=== PATIENT | female | born 1960 | race Caucasian/White ===

== ENCOUNTER 2017-06-04 21:23 | Inpatient (IN) | payer MEDICARE, BC ==
[~2017-06-04] VITALS: Ht 165.1 cm; Wt 57.2 kg
[~2017-06-04 21:23] MED LIST: ACET-868 PO; BISA10SU61 RC; CARI350T PO; CLON1TAB PO; CLON2TAB PO; DEXT1DRO3 RIGHTEYE; ERGO500014 PO; LEVE1000 PO; LEVO750T21 PO; MAGN400O6 PO; MINE7OIN RIGHTEYE; NA P133E RC; NICO-676 TD; OXYC5CAP PO; POLY17PO3 PO; PREG300C PO; SENN8.6C5 PO; SIMV20TA2 PO
--- NOTE | 2017-06-04 21:30 | NUR ---
56 yo male valeria ra from [facility]. patient is alert x 1, telling me his name only, not answering any other questions. per ems, patient is normally a/o x3, patient did not come down for dinner tonight, residence called 911. patient BG was WNl, skin warm and dry, resp even an dunlabored. awaiting orders from provider, will continue to monitor
[2017-06-04] MEDS ORDERED: HALOPERIDOL LACTATE INJ 5 MG/ML VIAL ONE (21:34)
[2017-06-04] MEDS ORDERED: LORAZEPAM INJ 2 MG/ML VIAL ONE (21:35)
--- NOTE | 2017-06-04 21:40 | NUR ---
medicated tpt as ordered
[2017-06-04] MEDS ORDERED: HALOPERIDOL LACTATE INJ 5 MG/ML VIAL IM ONE (22:00)
[2017-06-04] MEDS ORDERED: LORAZEPAM INJ 2 MG/ML VIAL IM ONE (22:00)
[2017-06-04 22:35] LABS: APPEARANCE,URINE CLEAR (CLEAR); BILIRUBIN,URINE NEGATIVE (NEGATIVE); BLOOD, URINE TRACE-INTA Ery/uL (NEGATIVE); COLOR,URINE YELLOW (YELLOW); KETONES,URINE 1+ (NEGATIVE); LEUKOCYTE ESTERASE ,URINE NEGATIVE (NEGATIVE); NITRITE, URINE NEGATIVE (NEGATIVE); PH,URINE 8.5 (5.0-8.0); PROTEIN,URINE NEGATIVE (NEGATIVE); UGLUCOSE NEGATIVE (NEGATIVE); UROBILINOGEN,URINE 0.2 EU/dL (0.2)
--- NOTE | 2017-06-04 22:38 | NUR ---
22G RIGHT WRIST IV STARTED
--- NOTE | 2017-06-04 22:40 | NUR ---
CALLED NURSING SUP. FOR TELE BED
[2017-06-04 22:46] LABS: BACTERIA,URINE Few /HPF (None Seen); SQUAMOUS EPITHELIAL CELL,UR Few /HPF (None Seen); WBC,URINE 0-2 /HPF (0-3)
[2017-06-04 23:08] LABS: CARBON DIOXIDE 21 mmol/L (21-32); CHLORIDE 107 mmol/L (98-107); CREATININE 0.5 mg/dL (0.6-1.3); GLUCOSE 111 mg/dL (74-106); SODIUM SERUM 140 mmol/L (136-145); UREA NITROGEN, BLOOD 12 mg/dL (7-18)
[2017-06-04 23:11] LABS: INR 1.03 (0.87-1.13)
[2017-06-04 23:15] LABS: ALANINE AMINOTRANSFERASE 20 U/L (12-78); ALBUMIN 3.4 g/dL (3.4-5.0); ALKALINE PHOSPHATASE 84 U/L (46-116); ASPARTATE AMINOTRANSFERASE 24 U/L (15-37); BILIRUBIN,DIRECT 0.1 mg/dL (0.0-0.2); BILIRUBIN,TOTAL 0.5 mg/dL (0.2-1.0); SALICYLATE 4.6 mg/dL (2.8-20.0); TOTAL PROTEIN, SERUM 6.5 g/dL (6.4-8.2)
--- NOTE | 2017-06-04 23:16 | NUR ---
TELE 311-2
[2017-06-04 23:18] LABS: ACETAMINOPHEN 0 ug/ml (10-30); ALCOHOL, BLOOD < 3 mg/dL (0-0)
[2017-06-04 23:24] LABS: BASOPHILS % (AUTO) 0.1 % (0.0-2.0); HEMATOCRIT 37 % (33-45); HEMOGLOBIN 12.7 g/dL (11.5-14.8); LYMPHOCYTES # (AUTO) 1.4 /CMM (0.8-4.8); LYMPHOCYTES % (AUTO) 11.5 % (20.0-44.0); MEAN CORPUSCULAR HEMOGLOBIN 30 PG (26.0-33.0); MEAN CORPUSCULAR HGB CONC 34 g/dl (31.0-36.0); MEAN CORPUSCULAR VOLUME 88 fL (82-100); MONOCYTES # (AUTO) 0.3 /CMM (0.1-1.30); MONOCYTES % (AUTO) 2.5 % (2.0-12.0); NEUTROPHILS # (AUTO) 10.1 /CMM (1.8-8.9); NEUTROPHILS % (AUTO) 85.9 % (43.0-81.0); PLATELET COUNT (AUTO) 200 /CMM (150-450); RDW COEFFICIENT OF VARIATION 13.9 (11.5-15.0); RED BLOOD CELL COUNT(AUTO) 4.25 MIL/uL (4.0-5.2); WHITE BLOOD COUNT (AUTO) 11.8 K/uL (4.3-11.0)
[2017-06-04 23:33] LABS: TROPONIN I < 0.017 ng/mL (0.00-0.056)
[2017-06-05] VITALS (7 sets, daily range): BP systolic 114–131; BP diastolic 71–87
[2017-06-05] MEDS ORDERED: LEVOFLOXACIN 750 MG /D5W 150ML PIGGYBACK IV ONE (00:30)
[2017-06-05] MEDS ORDERED: AZTREONAM 1 G in IV NS 0.9% 100 ML IV ONE (00:30)
[2017-06-05] MEDS ORDERED: LEVOFLOXACIN 750 MG /D5W 150ML 150 ML IV ONE (00:32)
[2017-06-05] MEDS ORDERED: AZTREONAM 1 G VIAL ONE (00:32)
--- NOTE | 2017-06-05 00:43 | NUR ---
DR MONROE ON THE PHONE WITH DR [place] EDITOR PANEL REGARDING PATIENT ADMISSION
--- NOTE | 2017-06-05 00:54 | NUR ---
JULIA SANDERS TOOK REPORT FOR TARYN
--- NOTE | 2017-06-05 01:04 | NUR ---
TELE/RN NOTES RECEIVED PATIENT IN ER ARRIVED ON A GURNEY, ALERTX1, PROVIDED WARM BLANKET PATIENT STATED FEEL COLD, SKIN COOL TO TOUCH, INTACT AND DRY, RESPIRATIONS EVEN AND UNLABORED, NO PAIN VERBALIZED, TELE READING AT SR 60'S. IV RIGHT WRIST GAUGE 22, PATENT W/ NO S/S OF INFILTRATION, RECEIVED ENDORSEMENT FOR IV ATB LEVOFLOXACIN ORDER 750MG/150ML TO ADMINISTRE, IV ANTIBIOTIC ZOSYN , 4 BAGS OF POTASSIUM TO REPLACE., IV HYDRATION RUNNING, MONITORING PATIENT W/ DX PHYLLIS. MD CONTACTED AND RECONCILED ORDERS, WILL CONTINUE TO MONITOR.
--- NOTE | 2017-06-05 01:05 | NUR ---
RECEIVED REPORT FROM HYDROPULPERMINESH ,PATIENT ROOM AT 309-2
--- NOTE | 2017-06-05 01:15 | NUR ---
TRANSPORTED PT TO TELE BED WITH EMT WITHOUT INCIDENT
--- NOTE | 2017-06-05 01:17 | NUR ---
ENDORSED LEVaquin 750mg iv to tele nurse
[2017-06-05] MEDS ORDERED: ZOLPIDEM TARTRATE 5 MG TABLET PO PRN (01:30)
[2017-06-05] MEDS ORDERED: HYDROCODONE/APAP 5/325MG 1 EACH TABLET PO PRN (01:30)
[2017-06-05] MEDS ORDERED: ONDANSETRON HCL/PF 4 MG/2 ML VIAL IVP PRN (01:30)
[2017-06-05] MEDS ORDERED: MAGNESIUM HYDROXIDE 30 ML UDC PO PRN (01:30)
[2017-06-05] MEDS ORDERED: Z GUARD REMEDY 2 OZ OINT TP PRN (01:30)
[2017-06-05] MEDS ORDERED: MAG HYDROX/AL HYDROX/SIMETH 30 ML UDC PO PRN (01:30)
[2017-06-05] MEDS ORDERED: ALBUTEROL FS 2.5 MG/3 ML VIAL.NEB NEB PRN (02:00)
[2017-06-05] MEDS ORDERED: PIPERACILLIN /TAZOBACTAM 4.5 G in IV D5W 50 ML IV SCH (02:00)
[2017-06-05] MEDS ORDERED: LORAZEPAM INJ 2 MG/ML VIAL IV PRN ×2 (02:00→14:00)
[2017-06-05] MEDS: IV NS 0.9% 1,000 ML IV PRN (02:02)
[2017-06-05] MEDS ORDERED: POTASSIUM CL. PREMIX PERIPHER. 200 ML ONE (02:27)
[2017-06-05] MEDS: POTASSIUM CL. PREMIX PERIPHER. 50 ML IV SCH ×4 (03:40→06:49)
--- NOTE | 2017-06-05 06:45 | NUR ---
09-2 pATIENT ABLE TO SLEEP DURING THE NIGHT, RESTING COMFORTBALY WITH SOME TURNING, ALERT X 1, SKIN INTACT, ABLE TO COOPERTAE WITH IV INFUSION FOR IV ATN FOR PNS, POTASSIUM TO BE REPLACED, RECEIVE ENDORSEMENT FROM AM RN FOR TARYN.
--- NOTE | 2017-06-05 07:45 | NUR ---
TELE/RN OPENING NOTE PATIENT IN BED IN STABLE CONDITION. A/O X 1. NO SIGNS OF ACUTE DISTRESS. NO COMPLAIN OF PAIN OR DISCOMFORT. ON TELE MONITOR WITH SINUS RHYTHM IN 90'S. ALL NEEDS ATTENDED TO. CALL LIGHT WITHIN REACH. WILL CONTINUE TO MONITOR TO ENSURE SAFETY.
[2017-06-05] MEDS: LEVETIRACETAM (250 MG) 250 MG TABLET PO SCH ×2 (08:24→21:21)
[2017-06-05 09:34] LABS: TROPONIN I < 0.017 ng/mL (0.00-0.056)
[2017-06-05] MEDS ORDERED: HALOPERIDOL LACTATE INJ 5 MG/ML VIAL IM PRN (10:00)
[2017-06-05] MEDS: LORAZEPAM INJ 2 MG/ML VIAL IM PRN ×2 (10:27→14:36)
[2017-06-05] MEDS ORDERED: LORAZEPAM 0.5 MG TABLET PO PRN (12:30)
[2017-06-05] MEDS ORDERED: TEMAZEPAM 7.5 MG CAPSULE PO PRN (12:30)
[2017-06-05] MEDS ORDERED: PANT40TA4 PO (13:25)
[2017-06-05] MEDS ORDERED: OXYC30TA2 PO (13:25)
[2017-06-05] MEDS ORDERED: LAMO25TA5 PO (13:25)
[2017-06-05] MEDS ORDERED: CHOL200026 PO (13:25)
[2017-06-05] MEDS ORDERED: PROC10TA PO (13:25)
[2017-06-05] MEDS ORDERED: MORP60TA4 PO (13:25)
[2017-06-05] MEDS ORDERED: ZOLP10TA6 PO (13:25)
[2017-06-05] MEDS ORDERED: MELO-107 PO (13:25)
[2017-06-05] MEDS ORDERED: CRAN450T3 PO (13:25)
[2017-06-05] MEDS ORDERED: LIDO30AD10 TP (13:25)
[2017-06-05] MEDS ORDERED: METH-406 PO (13:25)
[2017-06-05] MEDS ORDERED: GABA-532 PO (13:25)
[2017-06-05] MEDS ORDERED: ATOR10TA PO (13:25)
[2017-06-05] MEDS ORDERED: LACT10SO PO (13:25)
[2017-06-05] MEDS ORDERED: TEMA30CA PO (13:25)
[2017-06-05] MEDS: PIPERACILLIN /TAZOBACTAM 3.375 G in IV D5W 50 ML IV SCH ×3 (13:30→23:13)
--- NOTE | 2017-06-05 15:46 | NUR ---
ICT SECURITY SPECIALIST NOTES RECEIVED PATIENT FROM TOMMY GORMAN, IN BED RESTING. NO ACUTE DISTRESS, NO SOB NOTED. NO S/S OF PAIN OR DISCOMFORT. IV SITE INTACT AND PATENT. KEPT SAFE AND COMFORTABLE IN BED. BED IN LOW LOCKED POSITION. SIDERAILS UP, CALL LIGHT IN REACH. WILL CONTINUE TO MONITOR ACCORDINGLY.
[2017-06-05] MEDS: BENZTROPINE MESYLATE (1 MG) 1 MG TABLET PO SCH (17:00)
[2017-06-05] MEDS: risperiDONE-M 0.5 MG TAB.RAPDIS PO SCH (17:00)
--- NOTE | 2017-06-05 19:29 | NUR ---
RN CLOSING NOTES PATIENT IN BED RESTING. NO ACUTE DISTRESS, NO SOB NOTED. ALL NEEDS ATTENDED AND PROVIDED. KEPT PATIENT SAFE AND COMFORTABLE IN BED. BED IN LOW/LOCKED POSITION, SIDERAILS UPX2, CALL LIGHT IN REACH, ENDORSED TO NIGHT RN FOR TARYN.
--- NOTE | 2017-06-05 19:40 | NUR ---
RN OPENING NOTES RECEIVED PT LAYING IN BED WITH HOB ELEVATED. AWAKE AND RESPONSIVE. RESPIRATIONS ARE EVEN AND UNLABORED, NOT IN ANY ACUTE DISTRESS NOTED. NO FACIAL GRIMACING OR MOANING NOTED. IV TO RIGHT WRIST PATENT AND INTACT, DRESSING KEPT CLEAN AND DRY. NS RUNNING AT 75ML/HR. NO N/V, SOB NOTED. REMAINS AFEBRILE. WILL CONTINUE TO MONITOR THROUGHOUT SHIFT. INSTRUCTED PT TO USE CALL LIGHT WHEN ASSISTANCE IS NEEDED, CALL LIGHT IS LEFT WITHIN REACH.
[2017-06-05] MEDS: LEVOFLOXACIN 750 MG /D5W 150ML 750 MG in PREMIX 1 EA IV SCH (23:56)
[2017-06-06] MEDS: IV NS 0.9% 1,000 ML IV PRN ×2 (03:42→19:30)
[2017-06-06] MEDS: PIPERACILLIN /TAZOBACTAM 3.375 G in IV D5W 50 ML IV SCH ×3 (05:14→17:16)
--- NOTE | 2017-06-06 05:30 | NUR ---
RN NOTES IV TO RIGHT WRIST DISLODGED. NEW PERIPHERAL IV PLACED TO LEFT WRIST. DRESSING KEPT CLEAN AND INTACT. PT TOLERATED PROCEDURE WELL.
--- NOTE | 2017-06-06 06:27 | NUR ---
RN CLOSING NOTES ALL DUE MEDS GIVEN, NEEDS MET AND RENDERED. A/O X1, REMAINS AFEBRILE. RESPIRATIONS ARE EVEN AND UNLABORED, NOT IN ANY ACUTE DISTRESS NOTED. CURRENTLY ON ATB THERAPY W/ NO ASE NOTED. INSTRUCTED PT TO USE CALL LIGHT WHEN ASSISTANCE IS NEEDED, CALL LIGHT IS LEFT WITHIN REACH. BED IS IN ITS LOCKED AND LOWEST POSITION, BED ALARM IS ON. WILL ENDORSE TO NEXT SHIFT FOR CONTINUITY OF CARE.
--- NOTE | 2017-06-06 07:20 | NUR ---
RN OPENING NOTES RECEIVED PATIENT IN BED RESTING, AWAKE AND RESPONSIVE. NO ACUTE DISTRESS, NO SOB NOTED. DENIES PAIN OR DISCOMFORT. IV SITE INTACT AND PATENT. KEPT PATIENT SAFE AND COMFORTABLE IN BED. BED IN LOW/LOCKED POSITION, SIDERAILS UPX2, CALL LIGHT IN REACH. WILL CONTINUE TO MONITOR ACCORDINGLY.
[2017-06-06 07:46] LABS: BASOPHILS % (AUTO) 0.2 % (0.0-2.0); HEMATOCRIT 36 % (33-45); HEMOGLOBIN 12.6 g/dL (11.5-14.8); LYMPHOCYTES # (AUTO) 1.5 /CMM (0.8-4.8); LYMPHOCYTES % (AUTO) 13.1 % (20.0-44.0); MEAN CORPUSCULAR HEMOGLOBIN 31 PG (26.0-33.0); MEAN CORPUSCULAR HGB CONC 35 g/dl (31.0-36.0); MEAN CORPUSCULAR VOLUME 88 fL (82-100); MONOCYTES # (AUTO) 0.9 /CMM (0.1-1.30); MONOCYTES % (AUTO) 8.1 % (2.0-12.0); NEUTROPHILS # (AUTO) 8.7 /CMM (1.8-8.9); NEUTROPHILS % (AUTO) 78.6 % (43.0-81.0); PLATELET COUNT (AUTO) 206 /CMM (150-450); RDW COEFFICIENT OF VARIATION 13.9 (11.5-15.0); RED BLOOD CELL COUNT(AUTO) 4.08 MIL/uL (4.0-5.2); WHITE BLOOD COUNT (AUTO) 11.1 K/uL (4.3-11.0)
[2017-06-06 08:00] VITALS: BP 121/66
[2017-06-06 08:02] LABS: CALCIUM, SERUM 8.4 mg/dL (8.5-10.1); CREATININE 0.7 mg/dL (0.6-1.3); MAGNESIUM 1.8 mg/dL (1.8-2.4); PHOSPHORUS 3.3 mg/dL (2.5-4.9)
--- NOTE | 2017-06-06 08:10 | NUR ---
RN NOTES K=2.4, DR AVALOS MADE AWARE. NEW ORDER NOTED AND CARRIED OUT
[2017-06-06 08:19] LABS: POTASSIUM 2.4 mmol/L (3.5-5.1)
[2017-06-06] MEDS: BENZTROPINE MESYLATE (1 MG) 1 MG TABLET PO SCH ×2 (09:00→17:16)
[2017-06-06] MEDS: risperiDONE-M 0.5 MG TAB.RAPDIS PO SCH ×2 (09:00→17:16)
[2017-06-06] MEDS: LEVETIRACETAM (250 MG) 250 MG TABLET PO SCH ×2 (09:00→21:15)
--- NOTE | 2017-06-06 09:41 | NUR ---
RN NOTES PATIENT REFUSED AM MEDICATIONS. PATIENT SPIT IT OUT MEDS AND SAID "CAN YOU STOP!". ASKED PATIENT IF SHE WANTS HER MEDS, PATIENT SAID "NO!". EDUCATED AND EXPLAIN RISK AND BENEFITS ON MEDICATIONS BUT STILL REFUSED.
[2017-06-06] MEDS: POTASSIUM CL. PREMIX PERIPHER. 50 ML IV SCH ×4 (11:15→15:17)
[2017-06-06 16:00] VITALS: BP 128/80
[2017-06-06] MEDS: LACTOBACILLUS RHAMNOSUS GG 1 EACH CAP.SPRINK PO SCH (17:16)
[2017-06-06] MEDS: LamoTRIgine 25 MG TABLET PO SCH ×2 (17:17→21:15)
[2017-06-06] MEDS: ASPIRIN EC 325 MG TABLET.DR PO SCH (17:31)
--- NOTE | 2017-06-06 19:00 | NUR ---
RN CLOSING NOTES PATIENT RESTING IN BED. NO ACUTE DISTRESS, NO SOB NOTED. ALL NEEDS ATTENDED AND PROVIDED. KEPT PATIENT SAFE AND COMFORTABLE. BED IN LOW/LOCKED POSITION. SIDERAILS UPX2. CALL LIGHT IN REACH. ENDORSED TO NIGHT RN FOR TARYN.
--- NOTE | 2017-06-06 19:19 | NUR ---
MSRN RECEIVED AWAKE, NO VERBAL RESPONSE, NODS TO QUESTIONS ASKED. NO RESPIRATORY DISTRESS, PRESENT IVF INFUSING WELL. NO NEEDS FOR NOW. SAFETY PRECAUTIONS OBSERVED, HFR. NEEDS FREQ MONITORING. CONTINUED.
[2017-06-06 20:00] VITALS: BP 136/84
[2017-06-06 20:34] VITALS: BP 136/84
--- NOTE | 2017-06-06 21:49 | NUR ---
MSRN DUE MEDS CRUSHED WITH PUDDING, TOOK AWHILE TO SWALLOW. ASPIRATION PRECAUTIONS AND SEIZURE PRECAUTIONS OBSERVED. CLOSELY WATCHED
[2017-06-07] VITALS (22 sets, daily range): BP systolic 115–148; BP diastolic 68–126
[2017-06-07] MEDS: PIPERACILLIN /TAZOBACTAM 3.375 G in IV D5W 50 ML IV SCH ×2 (00:03→06:26)
[2017-06-07] MEDS: LEVOFLOXACIN 750 MG /D5W 150ML 750 MG in PREMIX 1 EA IV SCH (00:20)
--- NOTE | 2017-06-07 03:12 | NUR ---
MSRN SLEEPS ON/OFF, NO SEIZURE ACTIVITY. CLOSELY WATCHED
--- NOTE | 2017-06-07 07:02 | NUR ---
MSRN NO SEIZURE ACTIVITY WHOLE NIGHT.
[2017-06-07] MEDS: LamoTRIgine 25 MG TABLET PO SCH ×2 (09:00→22:36)
[2017-06-07] MEDS: LACTOBACILLUS RHAMNOSUS GG 1 EACH CAP.SPRINK PO SCH ×2 (09:00→17:00)
[2017-06-07] MEDS: ASPIRIN EC 325 MG TABLET.DR PO SCH (09:00)
[2017-06-07] MEDS: LEVETIRACETAM (250 MG) 250 MG TABLET PO SCH (09:00)
[2017-06-07] MEDS: BENZTROPINE MESYLATE (1 MG) 1 MG TABLET PO SCH ×2 (09:00→17:00)
[2017-06-07] MEDS: risperiDONE-M 0.5 MG TAB.RAPDIS PO SCH (09:00)
--- NOTE | 2017-06-07 09:30 | NUR ---
m/s machinery dismantler: notes pt refused meds and breakfast, stated, "no,no, no." pt educated on meds, but still refuses to open her mouth when offered. reality orientation provided prn. will continue to monitor.
--- NOTE | 2017-06-07 10:00 | NUR ---
m/s middle [employer] resource teacher: psych f/u seen by dr. cifuentes at this time and made aware re: refusal of meds and meals. dr. cifuentes spoke to dr. lynn and informed re: refusal of meds and meals. Addendum: 06/07/17 at 1019 by BERNICE PINA BASKETBALL PLAYER received verbal order from dr. cifuentes to change risperdal to sl. order read back and carried out and acknowledged.
--- NOTE | 2017-06-07 10:45 | NUR ---
m/s spray gunner: notes dr. lynn here and clarify her potassium ivpb order, informed md that pt has no baseline lab for today and pt had potassium yesterday, stated, "that's fine, she still needs it, hers was a two."
[2017-06-07] MEDS: BOOST PLUS FOOD-VANILLA 237 ML BOX PO SCH ×2 (12:18→17:00)
[2017-06-07] MEDS: POTASSIUM CL. PREMIX PERIPHER. 50 ML IV SCH ×5 (12:41→23:08)
--- NOTE | 2017-06-07 12:41 | NUR ---
m/s c developer: notes place pt on tele=sr=96 due to kcl ivpb. potassium chloride 10meq ivpb given by rn at this time. pt continue to spits out food when assisted by customer accounts advisor. reality orientation provided fawnnDimas cohen (derrick) on the phone and made aware of present condition and updated plan of care. all questions and concerns answered. will continue to monitor.
--- NOTE | 2017-06-07 14:00 | NUR ---
m/s president & ceo: notes pt remains sr=96. potassium chloride 10meq still infusing. will continue to monitor.
--- NOTE | 2017-06-07 15:30 | NUR ---
m/s play therapist: notes noted pt with shortness of breath, tachypneic, crackles on left base of lungs. ivf not running at this time. also noted pt hasn't voided. bladder scan done with more than 1000ml showing. paged dr. lynn. place pt on o2 at 2l/min via n/c and satting at 94%-96%. called r.t. for prn breathing tx and was given at 1539. awaiting for dr[address] lynn to call back.
--- NOTE | 2017-06-07 15:45 | NUR ---
m/s welder assembler: notes inserted f/c [id number] via sterile technique, tolerated well and obtained more than 1500ml of carrie colored urine output immediately and f/c left in place. [facility] called and informed tumbler drier operator that dr. lynn hasn't called back yet and will relay message as stated. paged dr. lynn once more. will continue to monitor.
--- NOTE | 2017-06-07 16:00 | NUR ---
m/s tire beader maker: notes f/u made once more to dr. lynn, left message via exchange. will continue to monitor.
--- NOTE | 2017-06-07 16:30 | NUR ---
m/s division plant engineer: notes re check o2 sat=86%-88%, increase o2 to 5l/min via n/c and jumped to 84%-95%. hob elevated. tele showing gm=428. will continue to monitor.
--- NOTE | 2017-06-07 17:00 | NUR ---
m/s assistant housekeeping manager: notes pt not tolerating o2 via mask, pt with labored breathing and tachypneic, switch to 100% non-rebreather mask by melissa lynn via exchange. vicki (sister, dpoa) visiting and updated condition. sister stayed with pt at bedside. awaiting for dr. lynn to call back. cn aware.
[2017-06-07] MEDS: risperiDONE-M 0.5 MG TAB.RAPDIS SL SCH (17:07)
--- NOTE | 2017-06-07 17:20 | NUR ---
m/s resource recovery engineer: notes dr. lynn called back and informed her re: present condition with new orders of stat abg and stat cxr. orders read back. vicki (derrick) here and wants to talk to md and handed the phone to family per request. r.t. and radiology dept notified of stat orders.
[2017-06-07 17:28] LABS: ABG PCO2 22.1 mmHg (35.0-45.0); ABG PH 7.556 (7.350-7.450); ABG PO2 53.4 mmHg (75.0-100.0); AaDO2 637.5 mmHg; COHb 0.1 % (0.5-1.5); MetHb 0.4 % (0.0-1.5); O2Hb 88.6 % (94.0-97.0); SITE, ABG Right Radial; VENT MODE, BG NRB
--- NOTE | 2017-06-07 17:45 | NUR ---
m/s steel pourer helper: notes relayed abg and ekg results to dr. lynn and informed dr. lynn, pt is still having troubled breathing; remains on 100% non-rebreather with order to transfer pt to [facility] or icu. cn and steffen house supervisor made aware. r.t. at bedside.
[2017-06-07] MEDS: LEVETIRACETAM (500MG) 1,000 MG in IV NS 0.9% 100 ML IV SCH ×2 (17:54→18:00)
--- NOTE | 2017-06-07 18:00 | NUR ---
m/s cable splicer assistant: notes rescue bipap initiated by r.t. at bedside, awaiting for icu bed. sister (dpoa) at bedside. will continue to monitor.
--- NOTE | 2017-06-07 18:08 | NUR ---
RN NOTES FAMILY REFUSED KEPPRA IV STATING PATIENT IS ALLERGIC TO KEPPRA NOTED.
--- NOTE | 2017-06-07 18:15 | NUR ---
EVENTS FROM 1814- TO [id number] YO WHITE FEMALE RECEIVED VIA BED FROM [facility] WITH DX RESPIRATORY FAILURE. ABG WITH PH 7.56 PCO2 22 PO2 54 ON 100% NRB MASK. RESPIRATORY RATE 60 BPM. AWAKE BUT MINIMALLY INTERACTIVE. HX ALOC AND POLYSUBSTANCE ABUSE. BIPAP STARTED. I MET WITH PT'S SISTER WHO IS AN COMMUNITY ENGAGEMENT LEADER AND THE DPOA WHO WANTS FULL AGGRESSIVE RX. I SPOKE EXTENSIVELY WITH MANUEL CHACON AND TUNG. INTUBATED WITH RAPID SEQUENCE DRUGS AND TO VOL VENT 100%, A/C 18 TV 400 AND PEEP 5. LABS, CXR, NGT, MIDLINE, AND BROADENING OF ANTIBIOTICS AFTER CULTURES. DIPRIVAN FOR HTN AND TACHYCARDIA AFTER NEURO MUSCULAR BLOCKADE
--- NOTE | 2017-06-07 18:30 | NUR ---
m/s president [place]: notes transferred pt to icu via bed accompanied by 2 licensed and 1 r.t. with oxygen and monitor. report given to icu nurse at bedside. sister waiting in the waiting room.
--- NOTE | 2017-06-07 19:04 | NUR ---
RT CALLED TO PT BEDSIDE FOR INTUBATION. PT INTUBATED BY WITH 7.0 ETT @ 21CM. VENT SETTINGS AC 18 400 100% +5. VENT PLUGGED INTO RED OUTLET. AMBU BAG AT BEDSIDE. DISCONNECT ALARMS CHECKED. Addendum: 06/07/17 at 1908 by CHANDLER SMITH RT Amended: Links added.
[2017-06-07] MEDS: PROPOFOL 100 ML IV PRN ×2 (19:17→23:47)
[2017-06-07] MEDS ORDERED: LEVALBUTEROL HCL NEB 1.25 MG/0.5 ML VIAL.NEB NEB SCH (19:30)
[2017-06-07] MEDS ORDERED: LEVALBUTEROL HCL NEB 1.25 MG/0.5 ML VIAL.NEB NEB PRN (19:30)
[2017-06-07] MEDS ORDERED: FEE PK DOSING 1 MIN EA MC ONE (19:49)
[2017-06-07 20:28] LABS: ALBUMIN 4.1 g/dL (3.4-5.0); BILIRUBIN,TOTAL 0.7 mg/dL (0.2-1.0); CALCIUM, SERUM 9.3 mg/dL (8.5-10.1); CREATININE 0.8 mg/dL (0.6-1.3); TOTAL PROTEIN, SERUM 7.7 g/dL (6.4-8.2)
[2017-06-07 20:31] LABS: ABG BASE EXCESS -5.8 mmol/L; ABG OXYGEN SATURATION 89.7 % (92.0-98.5); ABG PCO2 35.4 mmHg (35.0-45.0); ABG PH 7.347 (7.350-7.450); AaDO2 613.6 mmHg; COHb 0.3 % (0.5-1.5); MetHb 0.5 % (0.0-1.5); PEEP,BG 8 cm H2O; SITE, ABG Right Radial
--- NOTE | 2017-06-07 20:34 | NUR ---
POST INTUBATION ABG DONE. RN AND PRESS OPERATOR PRINTING NOTIFIED WITH THE RESULT.
[2017-06-07 20:35] LABS: POTASSIUM 2.4 mmol/L (3.5-5.1)
--- NOTE | 2017-06-07 20:40 | NUR ---
PT RECEIVED INTUBATED WITH 7.0 ETT SECURED AT 21CM AT THE LIP. VENT SETTINGS PER MD. LONGORIA 18, 400, 100%, +8. VENT ALARMS SET AND AUDIBLE. AMBU BAG AT HOB. VENT PLUGGED INTO RED OUTLET. SX'D FOR MOD AMT OF THICK TINGED SECRETIONS. ETT CUFF PRINCIPAL ASSOCIATE. WILL CONTINUE TO MONITOR. Addendum: 06/07/17 at 2042 by KESHAWN MIRANDA RT Amended: Links added.
--- NOTE | 2017-06-07 20:54 | NUR ---
HR ANALYST. INITIAL ASSESSMENT. RECEIVED HE PT ORALLY INTUBATED, SEDATED WITH DIPRIVAN. ETT #7,LIP 21CM,AC 18, TV 400,FIO2 100%, PEEP 8. SAT 92%. CLERICAL ADMINISTRATOR SHOWING S TACH. IV LT AC 20G. DIPRIVAN 35MCG/KG/MIN, OGT INTACT. FC PATENT. YASIR SOFT WRIST RESTRAINT CHECKED AND RELEASED NO INJURY OR REDNESS NOTED. PT HAS TACHYPNEA. NO GAG REFLEX AND COUGH REFLEX PRESENT.WILL CONTINUE TO MONITOR VITALS.
[2017-06-07] MEDS: Potassium Chloride 40 MEQ in IV D5W 1,000 ML IV PRN (21:02)
[2017-06-07] MEDS: VANCOMYCIN HCL 0.75 GM in IV D5W 250 ML IV SCH (21:03)
[2017-06-07] MEDS: ZOSYN IVPB 3.375 G in IV D5W 50ml IV SCH (21:04)
[2017-06-07 21:15] LABS: BASOPHILS # (AUTO) 0.1 /CMM (0.0-0.2); BASOPHILS % (AUTO) 0.2 % (0.0-2.0); HEMATOCRIT 44 % (33-45); HEMOGLOBIN 14.9 g/dL (11.5-14.8); LYMPHOCYTES # (AUTO) 2.2 /CMM (0.8-4.8); MEAN CORPUSCULAR HEMOGLOBIN 30 PG (26.0-33.0); MEAN CORPUSCULAR HGB CONC 34 g/dl (31.0-36.0); MEAN CORPUSCULAR VOLUME 89 fL (82-100); MONOCYTES # (AUTO) 1.6 /CMM (0.1-1.30); MONOCYTES % (AUTO) 5.8 % (2.0-12.0); PLATELET COUNT (AUTO) 284 /CMM (150-450); RDW COEFFICIENT OF VARIATION 14.2 (11.5-15.0); WHITE BLOOD COUNT (AUTO) 27.9 K/uL (4.3-11.0)
[2017-06-07] MEDS ORDERED: MORPHINE SULFATE INJ 4 MG/ML DISP.SYRIN ONE (21:19)
[2017-06-07] MEDS ORDERED: IV NS 0.9% 50 ML BAG IV SCH (21:30)
[2017-06-07] MEDS: MORPHINE SULFATE INJ 2 MG/ML DISP.SYRIN IV PRN (22:32)
[2017-06-07] MEDS ORDERED: POTASSIUM CL. PREMIX PERIPHER. 200 ML ONE (22:54)
[2017-06-07] MEDS ORDERED: IV NS 0.9% 100 ML BAG IV PRN (23:00)
[2017-06-07] MEDS: LEVALBUTEROL HCL NEB 1.25 MG/0.5 ML VIAL.NEB NEB SCH (23:53)
[2017-06-08] VITALS (51 sets, daily range): BP systolic 63–138; BP diastolic 40–98
[2017-06-08] MEDS: POTASSIUM CL. PREMIX PERIPHER. 50 ML IV SCH ×3 (00:08→03:05)
[2017-06-08] MEDS: LEVOFLOXACIN 750 MG /D5W 150ML 750 MG in PREMIX 1 EA IV SCH (01:01)
[2017-06-08] MEDS: ZOSYN IVPB 3.375 G in IV D5W 50ml IV SCH ×4 (01:01→19:12)
[2017-06-08] MEDS ORDERED: MORPHINE SULFATE INJ 4 MG/ML DISP.SYRIN ONE ×2 (01:37→03:07)
[2017-06-08] MEDS: MORPHINE SULFATE INJ 2 MG/ML DISP.SYRIN IV PRN ×2 (01:42→03:17)
[2017-06-08] MEDS: ACETAMINOPHEN 325 MG TABLET PO PRN (02:19)
[2017-06-08] MEDS: LORAZEPAM INJ 2 MG/ML VIAL IV PRN (03:55)
[2017-06-08 05:01] LABS: BASOPHILS % (AUTO) 0.1 % (0.0-2.0); EOSINOPHILS % (AUTO) 0.1 % (0.0-6.0); HEMATOCRIT 41 % (33-45); HEMOGLOBIN 13.8 g/dL (11.5-14.8); LYMPHOCYTES # (AUTO) 2.1 /CMM (0.8-4.8); MEAN CORPUSCULAR HEMOGLOBIN 30 PG (26.0-33.0); MEAN CORPUSCULAR HGB CONC 33 g/dl (31.0-36.0); MEAN CORPUSCULAR VOLUME 90 fL (82-100); MONOCYTES # (AUTO) 1.4 /CMM (0.1-1.30); MONOCYTES % (AUTO) 4.7 % (2.0-12.0); NEUTROPHILS # (AUTO) 26.6 /CMM (1.8-8.9); NEUTROPHILS % (AUTO) 88.1 % (43.0-81.0); PLATELET COUNT (AUTO) 220 /CMM (150-450); RDW COEFFICIENT OF VARIATION 14.3 (11.5-15.0)
[2017-06-08] MEDS: PROPOFOL 100 ML IV PRN ×5 (05:08→21:52)
[2017-06-08 05:15] LABS: CALCIUM, SERUM 8.3 mg/dL (8.5-10.1); CREATININE 1.2 mg/dL (0.6-1.3); MAGNESIUM 1.9 mg/dL (1.8-2.4); PHOSPHORUS 3.9 mg/dL (2.5-4.9); POTASSIUM 3.2 mmol/L (3.5-5.1)
[2017-06-08] MEDS: VANCOMYCIN HCL 0.75 GM in IV D5W 250 ML IV SCH (05:29)
[2017-06-08 05:33] LABS: WHITE BLOOD COUNT (AUTO) 30.2 K/uL (4.3-11.0)
--- NOTE | 2017-06-08 05:38 | NUR ---
MATERIALS MANAGEMENT SUPERVISOR. AM CARE, ORAL CARE, BED BATH GIVEN. LINEN CHANGED, REMAINING SAME VENT SETTINGS. SAT 86%, PRIVATE DUTY NURSE SHOWING S TACH, IV RT UPPER ARM MID LINE IVF D5W IN 40MEQPOTASSIUM 100ML/H. DIPRIVAN 50MCG/KG/MIN, YASIR SOFT WRIST RESTRAINT CHECKED AND RELEASED. NO INJURY OR REDNESS NOTED. FC PATENT. URINE DRAINING, HOB ELEVATED. OGT INTACT. CLAMPED. NPO. TURN AND REPOSITION Q2H. WILL CONTINUE TO MONITOR VITALS.
[2017-06-08 05:52] LABS: BAND % (MANUAL) 1 % (0.0-5.0); LYMPHOCYTES % (MANUAL) 10 % (16-48); MONOCYTES % (MANUAL) 5 % (0-11.0); NEUTROPHILS % (MANUAL) 84 (42-76)
[2017-06-08] MEDS ORDERED: IV NS 0.9% 100 ML IV PRN (07:00)
[2017-06-08] MEDS ORDERED: MORPHINE SULFATE INJ 4 MG/ML DISP.SYRIN IV PRN (07:00)
[2017-06-08 08:02] LABS: ABG BASE EXCESS -1.5 mmol/L; ABG OXYGEN SATURATION 99.2 % (92.0-98.5); ABG PCO2 38.2 mmHg (35.0-45.0); ABG PH 7.398 (7.350-7.450); ABG PO2 481.5 mmHg (75.0-100.0); AaDO2 193.3 mmHg; COHb 0.3 % (0.5-1.5); MetHb 0.5 % (0.0-1.5); O2Hb 98.4 % (94.0-97.0); SITE, ABG Right Radial; VENT MODE, BG AC 18 400 100 +8
[2017-06-08] MEDS ORDERED: ETOMIDATE 2 MG/ML VIAL IV ONE (08:41)
[2017-06-08] MEDS ORDERED: ROCURONIUM BROMIDE 50 MG/5 ML IV ONE (08:41)
[2017-06-08] MEDS: IV NS 0.9% 1,000 ML IV PRN (08:55)
[2017-06-08] MEDS: PANTOPRAZOLE 40 MG VIAL IV SCH (08:55)
[2017-06-08] MEDS: BENZTROPINE MESYLATE (1 MG) 1 MG TABLET PO SCH ×2 (08:56→17:14)
[2017-06-08] MEDS: risperiDONE-M 0.5 MG TAB.RAPDIS SL SCH ×2 (08:56→17:14)
[2017-06-08] MEDS: LACTOBACILLUS RHAMNOSUS GG 1 EACH CAP.SPRINK PO SCH ×2 (08:56→17:14)
[2017-06-08] MEDS: LamoTRIgine 25 MG TABLET PO SCH ×2 (08:56→21:52)
[2017-06-08] MEDS: ASPIRIN EC 325 MG TABLET.DR PO SCH (08:56)
[2017-06-08] MEDS: LEVETIRACETAM (500MG) 1,000 MG in IV NS 0.9% 100 ML IV SCH ×2 (09:00→21:51)
[2017-06-08] MEDS: LEVALBUTEROL HCL NEB 1.25 MG/0.5 ML VIAL.NEB NEB SCH ×3 (09:07→23:46)
[2017-06-08] MEDS ORDERED: POTASSIUM PHOSPHATE MM 15 MMOL in IV D5W 250 ML IV SCH (11:00)
[2017-06-08] MEDS ORDERED: NOREPINEPHRINE 8 MG in IV D5W 500 ML IV PRN (11:00)
[2017-06-08] MEDS ORDERED: POTASSIUM CHLORIDE 20 MEQ TAB.PRT.SR PO SCH (11:00)
[2017-06-08] MEDS ORDERED: POTASSIUM CHLORIDE 20 MEQ POWDER PACKET GT ONE (11:30)
--- NOTE | 2017-06-08 11:41 | NUR ---
PAVING MACHINE OPERATOR NOTE 0720: Received patient sedated. With ETT to vent, tolerated settings at this time. No respiratory distress noted at this time. With OGT intact, clamped. ST 140's on the monitor, per previous shift, its been like that. Gotti cath intact, noted with yellow urine drained to BSD. WBC 30.2, temp 98.3. 0800: Spoke with Dr. Wilkinson via phone, with order for lactic acid and EKG, made aware for BP 90's with episode of 80 from 6am. With order to place PICC and NS bolus 1L x1. 0830: Spoke with Siomara and made aware for the POC, consent given for PICC insertion, witnessed by SOHAIL Sun RN. 0930: EKG done, made Dr. Wilkinson aware, no new order at this time. 1045: S/E by Dr. Mejía, made aware for Diprivan @ 50mcg, still noted with agitation at times even with sedation, and informed held Risperdal in am. Per MD, may continue in the afternoon so less agitation when trying to wean. 1100: S/E by Dr. Ballesteros, with order to flush NGT 150 q6. 1130: S/E by Dr. Osuna, with order to test for Flu and start Tamiflu and isolation. Collected urine and swab specimens. ST 120's at this time.
[2017-06-08] MEDS: Potassium Phosphate meq 11 MEQ in IV D5W 100 ML IV SCH ×2 (13:02→17:13)
[2017-06-08] MEDS: Potassium Chloride 40 MEQ in IV D5W 1,000 ML IV PRN (14:55)
[2017-06-08] MEDS: FENTANYL CITRAT IV 2,500 MCG in IV NS 0.9% 200 ML IV PRN (15:02)
--- NOTE | 2017-06-08 15:42 | NUR ---
DETAILER NOTE 1300: S/E by Dr. Jerez, aware for the ABG, with order for vent changes. Noted with RR >35 still, MD ordered Fentanyl drip @ 25mcg/hr, will F/U to pharmacy. 1400: Patient back from CT head, awaiting result. 1500: Started on Fentanyl @ 25mcg witnessed by another nurse, will monitor for RR changes. 1530: Siomara at bedside, aware for the POC. All questions and concerns were answered.
--- NOTE | 2017-06-08 16:24 | NUR ---
CONDITIONING COACH NOTE Able to gather info from Dr. Perkins's office phone: [phone], attached to chart. Awaiting Dr. Wong's notes, faxed release of info on their office fax: [phone], phone: [phone].
[2017-06-08] MEDS: VANCOMYCIN 0.75 GM in IV D5W 250 ML IV SCH (17:13)
--- NOTE | 2017-06-08 17:20 | NUR ---
Pt received on mechanical vent. 7.0 ETT secured at 21cm@ the lip. FiO2 and peep were titrated to 50% and +5 per MD order. Vent is plugged into a red outlet, alarms are set and audible, and BVM is at bedside. Addendum: 06/08/17 at 1723 by DEAN PAYTON RT Amended: Links added.
[2017-06-08] MEDS: OSELTAMIVIR PHOSPHATE 75 MG CAPSULE PO SCH (18:04)
--- NOTE | 2017-06-08 20:02 | NUR ---
COMMERCIAL GREEN BUILDING ARCHITECT. INITIAL ASSESSMENT. RECEIVED THE PT REST ON THE BED. ORALLY INTUBATED. SEDATED WITH DIPRIVAN. ETT #7,LIP 21CM,AC 18,TV 400,FIO2 50%, PEEP 5. SAT 95%. SEPHORA OPERATIONS CONSULTANT SHOWING S TACH. IV RT UPPER ARM PICC LINE [id number]. YASIR SOFT WRIST RESTRAINT CHECKED AND RELEASED. NO INJURY OR REDNESS NOTED. DIPRIVAN 50MCG/KG/MIN,D5WIN 40MEQ POTASSIUM 100ML/H. OGT INTACT. NPO. FC PATENT. WILL CONTINUE TO MONITOR VITALS.
[2017-06-09] VITALS (36 sets, daily range): BP systolic 86–123; BP diastolic 47–76
[2017-06-09] MEDS: LEVOFLOXACIN 750 MG /D5W 150ML 750 MG in PREMIX 1 EA IV SCH ×2 (00:34→23:34)
[2017-06-09] MEDS: ZOSYN IVPB 3.375 G in IV D5W 50ml IV SCH ×2 (00:35→05:48)
[2017-06-09] MEDS: PROPOFOL 100 ML IV PRN ×5 (00:45→23:35)
--- NOTE | 2017-06-09 03:48 | NUR ---
LITIGATION PARALEGAL. AM CARE, ORAL CARE, BED BATH GIVEN, LINEN CHANGED, REMAINING SAME VENT SETTINGS. SAT 94%, BOTTOM SPRAYER SHOWING S TACH. IV RT UPPER ARM PICC LINE. IVF D5WIN 40 MEQ POTASSIUM. 100ML/H. DIPRIVAN 50MCG/KG/MIN,FENTANYL 56MCG/H. FC PATENT. YASIR SOFT WRIST RESTRAINT CHECKED AND RELEASED, NO INJURY OR REDNESS NOTED. YASIR SOFT WRIST RESTRAINT CHECKED AND RELEASED. NO INJUY OR REDNESS NOTED. TURN AND REPOSITION Q2H. WILL CONTINUE TO MONITOR VITALS.
[2017-06-09] MEDS: IV NS 0.9% 1,000 ML IV PRN (04:35)
[2017-06-09 05:06] LABS: EOSINOPHILS # (AUTO) 0.1 /CMM (0.0-0.7); EOSINOPHILS % (AUTO) 0.3 % (0.0-6.0); HEMATOCRIT 38 % (33-45); HEMOGLOBIN 12.8 g/dL (11.5-14.8); LYMPHOCYTES # (AUTO) 1.7 /CMM (0.8-4.8); LYMPHOCYTES % (AUTO) 5.4 % (20.0-44.0); MEAN CORPUSCULAR HEMOGLOBIN 30 PG (26.0-33.0); MEAN CORPUSCULAR HGB CONC 33 g/dl (31.0-36.0); MEAN CORPUSCULAR VOLUME 90 fL (82-100); MONOCYTES # (AUTO) 0.9 /CMM (0.1-1.30); NEUTROPHILS # (AUTO) 28.6 /CMM (1.8-8.9); NEUTROPHILS % (AUTO) 91.3 % (43.0-81.0); PLATELET COUNT (AUTO) 195 /CMM (150-450); RDW COEFFICIENT OF VARIATION 14.3 (11.5-15.0); RED BLOOD CELL COUNT(AUTO) 4.28 MIL/uL (4.0-5.2)
[2017-06-09 05:29] LABS: CREATININE 0.8 mg/dL (0.6-1.3); MAGNESIUM 1.6 mg/dL (1.8-2.4); PHOSPHORUS 2.4 mg/dL (2.5-4.9); WHITE BLOOD COUNT (AUTO) 31.4 K/uL (4.3-11.0)
[2017-06-09] MEDS: VANCOMYCIN 0.75 GM in IV D5W 250 ML IV SCH (05:49)
[2017-06-09 05:51] LABS: BAND % (MANUAL) 3 % (0.0-5.0); LYMPHOCYTES % (MANUAL) 6 % (16-48); MONOCYTES % (MANUAL) 3 % (0-11.0); NEUTROPHILS % (MANUAL) 88 (42-76)
[2017-06-09] MEDS: LEVALBUTEROL HCL NEB 1.25 MG/0.5 ML VIAL.NEB NEB SCH ×3 (08:06→23:44)
[2017-06-09] MEDS: ASPIRIN EC 325 MG TABLET.DR PO SCH (08:34)
[2017-06-09] MEDS: LACTOBACILLUS RHAMNOSUS GG 1 EACH CAP.SPRINK PO SCH ×2 (08:34→17:17)
[2017-06-09] MEDS: PANTOPRAZOLE 40 MG VIAL IV SCH (08:34)
[2017-06-09] MEDS: risperiDONE-M 0.5 MG TAB.RAPDIS SL SCH ×2 (08:34→17:18)
[2017-06-09] MEDS: LamoTRIgine 25 MG TABLET PO SCH ×2 (08:34→21:29)
[2017-06-09] MEDS: OSELTAMIVIR PHOSPHATE 75 MG CAPSULE PO SCH ×2 (08:34→17:17)
[2017-06-09] MEDS: BENZTROPINE MESYLATE (1 MG) 1 MG TABLET PO SCH ×2 (08:35→17:17)
[2017-06-09] MEDS: LEVETIRACETAM (500MG) 1,000 MG in IV NS 0.9% 100 ML IV SCH ×2 (08:35→21:29)
[2017-06-09] MEDS: Magnesium 1GM/D5W 100ML PREMIX 100 ML IV SCH ×4 (09:55→13:54)
[2017-06-09] MEDS: Potassium Chloride 40 MEQ in IV D5W 1,000 ML IV PRN ×2 (10:02→23:34)
--- NOTE | 2017-06-09 11:20 | NUR ---
MOTTLER MACHINE FEEDER NOTE 0720: Received patient lethargic, calm at this time, with sedation and pain medication. With ETT to vent, noted with RR >35, will titrate pain Fentanyl as ordered. With OGT clamped. With YANET PICC intact, on IVF infusing as ordcered. With Gotti cath intact, noted with clear yellow urine drained to BSD> Kept clean warm and dry. On isolation precaution for possible Flu, on Tamiflu, no any adverse reactions noted at this time. 0800: Noted with temp 100.0, rendered cooling measures. Noted with >35 RR, placed Fentanyl @ 100mcg/hr, will continue to monitor VS. 0830: Rendered sedation vacation, able to place on 30mcg of Diprivan, patient noted able to communicate and follow commands, rendered reality orientation, but noted with agitation and increase WOB. Will titrate up again. 0930: S/E by Dr. Vallejo, said to continue Diprivan and Fentanyl for today and no weaning trial for today. 1000: Spoke with Siomara and given update re: patient's condition. Replacing Mg 1115: No any significant changes noted at this time. Kept clean, warm and dry. Needs attended.
[2017-06-09] MEDS ORDERED: POTASSIUM PHOSPHATE MM 15 MMOL in IV D5W 250 ML IV SCH (12:00)
[2017-06-09] MEDS: PIPERACILLIN /TAZOBACTAM 3.375 G in IV NS 0.9% 50 ML IV SCH ×2 (12:59→17:18)
[2017-06-09] MEDS: FENTANYL CITRAT IV 2,500 MCG in IV NS 0.9% 200 ML IV PRN (14:01)
[2017-06-09] MEDS: VANCOMYCIN 0.75 GM in IV NS 0.9% 250 ML IV SCH ×2 (15:04→21:29)
[2017-06-09 15:47] LABS: APPEARANCE,URINE CLEAR (CLEAR); BILIRUBIN,URINE NEGATIVE (NEGATIVE); BLOOD, URINE TRACE Ery/uL (NEGATIVE); COLOR,URINE YELLOW (YELLOW); KETONES,URINE NEGATIVE (NEGATIVE); LEUKOCYTE ESTERASE ,URINE NEGATIVE (NEGATIVE); NITRITE, URINE NEGATIVE (NEGATIVE); PH,URINE 5.5 (5.0-8.0); PROTEIN,URINE TRACE mg/dl (NEGATIVE); UGLUCOSE NEGATIVE (NEGATIVE); UROBILINOGEN,URINE 0.2 EU/dL (0.2)
[2017-06-09 15:51] LABS: BACTERIA,URINE Few /HPF (None Seen); SQUAMOUS EPITHELIAL CELL,UR Moderate /HPF (None Seen)
[2017-06-09] MEDS: methylPREDNISolone SOD SUCC 125 MG/2ML VIAL IV SCH (17:17)
--- NOTE | 2017-06-09 21:04 | NUR ---
UPTWISTER TENDER DF PT PHYSICAL ASSESSMENT COMPLETED. NO ACUTE CHANGES FROM PREVIOUS DOCUMENTED ASSESSMENTS. PT SEDATED ON DIPRIVAN @50MCG AND FENTANYL AT 100MCG/HR(I INCREASED PT FENTANYL TO 125 MCG/HR. PT DOSING INSTRUCTIONS ARE 3MCG/KG MAX RATE. PT WITH WEIGHT OF 63KG MAX RATE OF 189MCG/HR. DOSE INCREASED TO 125MCG IV. PT AWAKE WITH FACIAL GRIMACING, C/O ANXIETY,AGITATION AND MODERATE GENERALIZED PAIN. PLEASE BE NOTED PT WAS ADMITTED WITH LEFT SIDE FACIAL DROOP FROM PREVIOUS CVA PRIOR TO ADMISSION. NO ACUTE DISTRESS NOTED,VSS,WILL CONTINUE TO MONITOR.
--- NOTE | 2017-06-09 21:37 | NUR ---
Received pt on vent support, pt stable on current settings, no SOB or respiratory distress noted, ventilator is plugged into red outlet, alarms audible and on. Ambu bag at bedside, will continue monitoring per MDS orders. Addendum: 06/09/17 at 2137 by SURI HERNÁNDEZ RT Amended: Links added.
[2017-06-10] VITALS (36 sets, daily range): BP systolic 90–146; BP diastolic 48–97
[2017-06-10] MEDS: PIPERACILLIN /TAZOBACTAM 3.375 G in IV NS 0.9% 50 ML IV SCH ×5 (00:10→23:27)
[2017-06-10 04:44] LABS: HEMATOCRIT 29 % (33-45); HEMOGLOBIN 10.1 g/dL (11.5-14.8); LYMPHOCYTES # (AUTO) 0.8 /CMM (0.8-4.8); LYMPHOCYTES % (AUTO) 5.2 % (20.0-44.0); MEAN CORPUSCULAR HEMOGLOBIN 30 PG (26.0-33.0); MEAN CORPUSCULAR HGB CONC 34 g/dl (31.0-36.0); MEAN CORPUSCULAR VOLUME 88 fL (82-100); MONOCYTES # (AUTO) 0.3 /CMM (0.1-1.30); MONOCYTES % (AUTO) 2.1 % (2.0-12.0); NEUTROPHILS # (AUTO) 13.9 /CMM (1.8-8.9); NEUTROPHILS % (AUTO) 92.7 % (43.0-81.0); PLATELET COUNT (AUTO) 162 /CMM (150-450); RDW COEFFICIENT OF VARIATION 14.2 (11.5-15.0); RED BLOOD CELL COUNT(AUTO) 3.31 MIL/uL (4.0-5.2)
[2017-06-10] MEDS: LORAZEPAM INJ 2 MG/ML VIAL IV PRN ×4 (04:48→23:27)
[2017-06-10] MEDS: VANCOMYCIN 0.75 GM in IV NS 0.9% 250 ML IV SCH ×2 (04:49→13:24)
[2017-06-10 05:00] LABS: CALCIUM, SERUM 7.7 mg/dL (8.5-10.1); CREATININE 0.6 mg/dL (0.6-1.3); MAGNESIUM 2.2 mg/dL (1.8-2.4); PHOSPHORUS 3.4 mg/dL (2.5-4.9); POTASSIUM 4.5 mmol/L (3.5-5.1)
[2017-06-10] MEDS: PROPOFOL 100 ML IV PRN ×3 (05:50→18:58)
[2017-06-10] MEDS: LEVALBUTEROL HCL NEB 1.25 MG/0.5 ML VIAL.NEB NEB SCH ×3 (07:23→23:02)
--- NOTE | 2017-06-10 07:45 | NUR ---
ICU/RN - Initial Notes Received pt in sedated, on Diprivan and Fentanyl gtt. Orally intubated to mechanical vent with settings as ordered. SR 60's on tele monitor. OG tube patent and intact, clamped. Gotti catheter intact draining urine to gravity. PICC line intact with IVF infusing well. Safety and comfort measures in place. Will continue to monitor pt closely.
--- NOTE | 2017-06-10 08:04 | NUR ---
RT NOTE PT RECEIVED MECHANICALLY VENTILATED VIA 7.0 ETT 21 CM AT LIP. SETTINGS PRESCRIBED AC 18 400 50% +5. ALARMS SET PER PROTOCOL AND AUDIBLE. VENT PLUGGED IN TO RED OUTLET. AMBU BAG AT BED SIDE. NO DISTRESS NOTED. WILL CONTINUE TO MONITOR. Addendum: 06/10/17 at 0806 by IONA EDWARDS RT Amended: Links added.
[2017-06-10] MEDS: OSELTAMIVIR PHOSPHATE 75 MG CAPSULE PO SCH ×2 (08:38→16:10)
[2017-06-10] MEDS: BENZTROPINE MESYLATE (1 MG) 1 MG TABLET PO SCH ×2 (08:38→16:10)
[2017-06-10] MEDS: LACTOBACILLUS RHAMNOSUS GG 1 EACH CAP.SPRINK PO SCH ×2 (08:38→16:10)
[2017-06-10] MEDS: PANTOPRAZOLE 40 MG VIAL IV SCH (08:38)
[2017-06-10] MEDS: LamoTRIgine 25 MG TABLET PO SCH ×2 (08:38→20:34)
[2017-06-10] MEDS: ASPIRIN EC 325 MG TABLET.DR PO SCH (08:38)
[2017-06-10] MEDS: LEVETIRACETAM (500MG) 1,000 MG in IV NS 0.9% 100 ML IV SCH ×2 (08:39→20:34)
[2017-06-10] MEDS: risperiDONE-M 0.5 MG TAB.RAPDIS SL SCH ×3 (08:39→16:11)
[2017-06-10] MEDS: methylPREDNISolone SOD SUCC 125 MG/2ML VIAL IV SCH ×2 (08:39→16:11)
[2017-06-10 08:52] LABS: ABG OXYGEN SATURATION 98.1 % (92.0-98.5); ABG PCO2 43.5 mmHg (35.0-45.0); ABG PH 7.409 (7.350-7.450); ABG PO2 170.1 mmHg (75.0-100.0); AaDO2 137.5 mmHg; COHb 0.2 % (0.5-1.5); O2Hb 96.9 % (94.0-97.0); PEEP,BG 5 cm H2O; SITE, ABG Right Radial; VENT MODE, BG AC 18 400 50% +5; VT, ABG 400 mL
--- NOTE | 2017-06-10 09:30 | NUR ---
ICU/RN - Notes Diprivan and Fentanyl gtt titrated down for sedation vacation. On Diprivan @ 10 mcg/kg/min and Fentanyl @ 75 mcg/kg/hr, patient awake and alert, following commands. Pt restless and attempting to reach to pull out ET tube. Bilateral soft wrist restraints in placed for safety/risk for self extubation. Reorientation and reinforcement not to remove equipment provided to pt, but pt still agitated and restless.
[2017-06-10] MEDS: IV D5/0.45 NACL 1,000 ML IV PRN (10:22)
--- NOTE | 2017-06-10 11:50 | NUR ---
RT NOTE PT PLACED ON SIMV PER MD ORDER. SETTINGS PRESCRIBED SIMV 4 +5 PS 12. RN NOTIFIED. PT AWAKE AND ALERT. ALARMS SET PER PROTOCOL AND AUDIBLE. AMBU BAG AT BED SIDE. Addendum: 06/10/17 at 1152 by IONA EDWARDS RT Amended: Links added.
--- NOTE | 2017-06-10 12:10 | NUR ---
ICU/RN - Notes Mechanical ventilator weaning unsuccessful, pt tachycardic and tachypneic, agitated and restless, although follows commands, even on Diprivan @ 30mcg/kg/min. Fentanyl gtt d/c'ed per . Per Dr Vallejo, place patient back on AC mode and restart sedation.
--- NOTE | 2017-06-10 12:11 | NUR ---
RT NOTE PT FAILED SIMV WEANING. PT PLACED BACK ON AC MODE ON PREVIOUS SETTINGS. RN NOTIFIED. ALARMS SET PER PROTOCOL AND AUDIBLE. NO DISTRESS NOTED. Addendum: 06/10/17 at 1212 by IONA EDWARDS RT Amended: Links added.
--- NOTE | 2017-06-10 14:08 | NUR ---
ICU/RN - Notes Pt appears restless, attempting to reach for ET tube. Administered Ativan 1mg IVP as ordered. Will continue to monitor.
[2017-06-10] MEDS: GLYTROL 1,000 ML BAG GT PRN (15:58)
--- NOTE | 2017-06-10 16:59 | NUR ---
ICU/RN - Notes Pt agitated, attempting to get out of restraints, with elevated HR 126 and tachypneic RR 35. Administered Ativan 1mg IVP as ordered. Will continue to monitor.
--- NOTE | 2017-06-10 18:45 | NUR ---
ICU/RN - Notes Pt appears in no acute distress, sedated on mechanical ventilator.
--- NOTE | 2017-06-10 19:12 | NUR ---
Received intubated with ETT tube 7.0 located at 21 cm on the lip. Pt on vent support, pt stable on current settings, no SOB or respiratory distress noted, ventilator is plugged into red outlet, alarms audible and on. Ambu bag at bedside, will continue monitoring per MDS orders. Addendum: 06/10/17 at 1913 by MADI NIELSEN RT Amended: Links added.
--- NOTE | 2017-06-10 20:51 | NUR ---
DRUM SANDER SETTER DF RECEIVED PT TO ROOM#252 PT SEDATED ON DIPRIVAN GTT @ 50MCG/MIN. PT AROUSES TO TOUCH,VERBAL STIMULI,OPENS EYES,FOLLOWS SIMPLE COMMANDS. PT IN BILATERAL SOFT WRIST RESTRAINTS FOR SAFETY PT WITH HX OF MOOD DISORDER PT SELF EXTUBATION RISK. PT STARTED ON TUBE FEEDING AT 15ML/HR GOAL ADVANCE TO 60ML TOLERATED. PT ON AC VENT SETTINGS WITH STABLE VITAL SIGNS. NO DISTRESS NOTED.
[2017-06-10] MEDS: LEVOFLOXACIN 750 MG /D5W 150ML 750 MG in PREMIX 1 EA IV SCH (23:27)
--- NOTE | 2017-06-10 23:28 | NUR ---
FILLER SPREADER DF PT AGITATED, RESTLESS, PT WITH HX OF MOOD DISORDER. PT MEDICATED WITH ATIVAN 1MG IV PRN AGITATION.VSS.NAD NOTED. SEDATED ON PROPOFOL AT 50MCG/MIN IV.
[2017-06-11] VITALS (36 sets, daily range): BP systolic 120–143; BP diastolic 64–87
[2017-06-11] MEDS: IV D5/0.45 NACL 1,000 ML IV PRN ×2 (00:01→17:34)
[2017-06-11] MEDS: PROPOFOL 100 ML IV PRN ×5 (00:03→20:15)
[2017-06-11] MEDS: LORAZEPAM INJ 2 MG/ML VIAL IV PRN ×2 (02:54→13:39)
--- NOTE | 2017-06-11 02:54 | NUR ---
PT AGITATED,RESTLESS, PRIOR TO AM CARE. PT MEDICATED WITH ATIVAN 1MG IVP PRN AGITATION.VSS.NAD NOTED. AM CARE DONE ASSISTED BY CARO CARLOS.
[2017-06-11 05:08] LABS: BASOPHILS # (AUTO) 0.1 /CMM (0.0-0.2); BASOPHILS % (AUTO) 0.8 % (0.0-2.0); EOSINOPHILS % (AUTO) 0.2 % (0.0-6.0); HEMATOCRIT 29 % (33-45); HEMOGLOBIN 9.9 g/dL (11.5-14.8); LYMPHOCYTES # (AUTO) 1.3 /CMM (0.8-4.8); LYMPHOCYTES % (AUTO) 12.9 % (20.0-44.0); MEAN CORPUSCULAR HEMOGLOBIN 31 PG (26.0-33.0); MEAN CORPUSCULAR HGB CONC 35 g/dl (31.0-36.0); MEAN CORPUSCULAR VOLUME 88 fL (82-100); MONOCYTES # (AUTO) 0.7 /CMM (0.1-1.30); MONOCYTES % (AUTO) 6.7 % (2.0-12.0); NEUTROPHILS # (AUTO) 7.9 /CMM (1.8-8.9); NEUTROPHILS % (AUTO) 79.4 % (43.0-81.0); PLATELET COUNT (AUTO) 203 /CMM (150-450); RDW COEFFICIENT OF VARIATION 14.4 (11.5-15.0); RED BLOOD CELL COUNT(AUTO) 3.24 MIL/uL (4.0-5.2); WHITE BLOOD COUNT (AUTO) 9.9 K/uL (4.3-11.0)
[2017-06-11 05:18] LABS: CALCIUM, SERUM 7.1 mg/dL (8.5-10.1); CREATININE 0.6 mg/dL (0.6-1.3); MAGNESIUM 1.7 mg/dL (1.8-2.4); PHOSPHORUS 2.9 mg/dL (2.5-4.9); POTASSIUM 3.1 mmol/L (3.5-5.1)
[2017-06-11] MEDS: PIPERACILLIN /TAZOBACTAM 3.375 G in IV NS 0.9% 50 ML IV SCH ×4 (05:21→23:16)
--- NOTE | 2017-06-11 06:51 | NUR ---
DOOR PULLER DF PT AGITATED RESTLESS, DIPRIVAN GTT INCREASED TO 65MCG. PT WITH CRITICAL LAB OF GLUCOSE 354. ACCU CHECK DONE VALUE OF 127. NO NEED TO CONTACT MD AT THIS TIME.
[2017-06-11] MEDS: LEVALBUTEROL HCL NEB 1.25 MG/0.5 ML VIAL.NEB NEB SCH ×3 (07:24→23:08)
--- NOTE | 2017-06-11 07:29 | NUR ---
RT PT REC'D INTUBATED WITH A 7.0ETT @ 21CM AT THE LIP. VENT SETTINGS PER MD REQUEST. ALARMS SET AND AUDIBLE PER POLICY. VENT PLUGGED INTO RED OUTLET. AMBU BAG AT HOB. SX'D SCANT AMT OF THICK RUSSO/CLEAR SECRETIONS. Addendum: 06/11/17 at 0732 by IMAN SÁNCHEZ RT Amended: Links added.
--- NOTE | 2017-06-11 07:30 | NUR ---
ICU/RN: Pt received orally intubated, tolerating current vent settings, sedated on 65mcg/min of Diprivan. Pt awakens to tactile stimulation, follows some commands and nods/shakes head to yes or no questions before dozing off. YANET PICC patent and flushed. OGT in place. With 60cc TF residual, will keep current rate at 40cc and recheck residuals per protocol. ST 106 on monitor. FC draining clear yellow urine to gravity. Restraint care rendered. Alarm sounds audible. Will cont to monitor pt.
[2017-06-11] MEDS: LEVETIRACETAM (500MG) 1,000 MG in IV NS 0.9% 100 ML IV SCH (08:57)
[2017-06-11] MEDS: ASPIRIN EC 325 MG TABLET.DR PO SCH (08:58)
[2017-06-11] MEDS: OSELTAMIVIR PHOSPHATE 75 MG CAPSULE PO SCH ×2 (08:58→16:05)
[2017-06-11] MEDS: methylPREDNISolone SOD SUCC 125 MG/2ML VIAL IV SCH ×2 (08:58→16:05)
[2017-06-11] MEDS: risperiDONE-M 0.5 MG TAB.RAPDIS SL SCH ×3 (08:58→16:05)
[2017-06-11] MEDS: BENZTROPINE MESYLATE (1 MG) 1 MG TABLET PO SCH ×2 (08:58→16:05)
[2017-06-11] MEDS: LamoTRIgine 25 MG TABLET PO SCH ×2 (08:58→20:30)
[2017-06-11] MEDS: PANTOPRAZOLE 40 MG VIAL IV SCH (08:58)
[2017-06-11] MEDS: LACTOBACILLUS RHAMNOSUS GG 1 EACH CAP.SPRINK PO SCH ×2 (08:58→16:05)
--- NOTE | 2017-06-11 09:00 | NUR ---
ICU/RN: Due meds administered. AM and oral care rendered. Sedation vacation ended, pt became tachypneic and reached for tubes, restless. Diprivan titrated up per protocol.
[2017-06-11] MEDS ORDERED: POTASSIUM CHLORIDE 20 MEQ POWDER PACKET GT SCH (10:00)
[2017-06-11] MEDS ORDERED: Magnesium 1GM/D5W 100ML PREMIX 100 ML IV SCH (10:00)
[2017-06-11] MEDS: POTASSIUM CL. PREMIX PERIPHER. 50 ML IV SCH ×2 (11:53→12:52)
[2017-06-11] MEDS: ENOXAPARIN SODIUM 40 MG/0.4 ML DISP.SYRIN SQ SCH (12:53)
--- NOTE | 2017-06-11 13:00 | NUR ---
ICU/RN: Bed bath, wound care rendered. Small soft brown BM noted. Z-guard applied to affected areas. Pt able to assist with turning and repositioning.
--- NOTE | 2017-06-11 14:00 | NUR ---
ICU/RN: Tube feeding increased to 50cc/hr; residuals now down to 20 from 60cc. Will reassess tolerance accordingly.
[2017-06-11] MEDS: GLYTROL 1,000 ML BAG GT PRN (16:04)
--- NOTE | 2017-06-11 19:04 | NUR ---
ICU/RN: Pt resting in bed comfortably, no distress noted, awakens to name and touch. IVF infusing well. SR on monitor. Care endorsed to pm rn for lucila.
--- NOTE | 2017-06-11 19:30 | NUR ---
SENIOR SUPPORT ANALYST: RECEIVED ORALLY INTUBATED PT WT VENT SETTINGS ORDERED. NO ACUTE DISTRESS, NO EVIDENCE OF DISCOMFORT. SEDATED ON DIPRIVAN AT 65MCG/KG/MIN. ABLE TO FOLLOW SIMPLE COMMANDS. SR ON LAMINATOR PRINTED CIRCUIT BOARDS. OGT RUNNING GLYTROL AT 50ML/HR WT 20 ML RESIDUAL. WILL INCREASE DOSE EMERITA TILL GOAL RATE OF 60ML/HR IS ATTAINED. YANET PICC ALSO INFUSING D5 1/2 NS AT 75ML/HR WT NO S/S OF COMPLICATIONS. BILAT. SOFT WRIST RESTRAINTS IN PLACE FOR EPISODES OF TRYING TO REACH TUBINGS. NOTED WT GOOD CIRCULATION AND NO NEW SKIN BREAKDOWN. F/C PATENT AND INTACT DRAINING CLEAR YELLOW URINE TO GRAVITY. HOB ELEVATED AT 35 DEGREES. SAFETY, SEIZURE AND ASPIRATION PRECAUTIONS NOTED AT ALL TIMES.
--- NOTE | 2017-06-11 19:58 | NUR ---
Received pt on vent support, pt stable on current settings, no SOB or respiratory distress noted, ventilator is plugged into red outlet, alarms audible and on. Ambu bag at bedside, will continue monitoring per MDS orders. Addendum: 06/11/17 at 1958 by SURI HERNÁNDEZ RT Amended: Links added.
[2017-06-11] MEDS ORDERED: LEVETIRACETAM (250 MG) 250 MG TABLET PO SCH (21:00)
[2017-06-11] MEDS: LEVOFLOXACIN (750 MG) 750 MG TABLET PO SCH (23:15)
[2017-06-12] VITALS (36 sets, daily range): BP systolic 101–139; BP diastolic 53–90
--- NOTE | 2017-06-12 | NUR ---
AUTOMOTIVE PARTS PERSON: VS WITHIN PATIENT'S BASELINE. NO SIGNIFICANT TARYN. REPOSITIONED. GTF RATE NOW REACHED MAX. GOAL F 60ML/HR. WILL CONTINUE TO MONITOR.
[2017-06-12] MEDS: PROPOFOL 100 ML IV PRN ×5 (00:44→19:30)
--- NOTE | 2017-06-12 04:00 | NUR ---
HOOP DRIVING MACHINE OPERATOR HELPER: BED BATH GIVEN AND TOLERATED WELL. FI02 NOW AT 35% WT NO ACUTE DISTRESS.
[2017-06-12 04:59] LABS: BASOPHILS # (AUTO) 0.1 /CMM (0.0-0.2); BASOPHILS % (AUTO) 0.8 % (0.0-2.0); EOSINOPHILS % (AUTO) 0.2 % (0.0-6.0); HEMATOCRIT 32 % (33-45); HEMOGLOBIN 11.1 g/dL (11.5-14.8); LYMPHOCYTES # (AUTO) 2.2 /CMM (0.8-4.8); LYMPHOCYTES % (AUTO) 20.2 % (20.0-44.0); MEAN CORPUSCULAR HEMOGLOBIN 30 PG (26.0-33.0); MEAN CORPUSCULAR HGB CONC 34 g/dl (31.0-36.0); MEAN CORPUSCULAR VOLUME 89 fL (82-100); MONOCYTES # (AUTO) 1.4 /CMM (0.1-1.30); MONOCYTES % (AUTO) 12.5 % (2.0-12.0); NEUTROPHILS # (AUTO) 7.2 /CMM (1.8-8.9); NEUTROPHILS % (AUTO) 66.3 % (43.0-81.0); PLATELET COUNT (AUTO) 285 /CMM (150-450); RED BLOOD CELL COUNT(AUTO) 3.66 MIL/uL (4.0-5.2); WHITE BLOOD COUNT (AUTO) 10.9 K/uL (4.3-11.0)
[2017-06-12 05:21] LABS: CREATININE 0.6 mg/dL (0.6-1.3); MAGNESIUM 1.9 mg/dL (1.8-2.4); PHOSPHORUS 3.1 mg/dL (2.5-4.9)
[2017-06-12] MEDS: PIPERACILLIN /TAZOBACTAM 3.375 G in IV NS 0.9% 50 ML IV SCH ×4 (06:04→23:12)
[2017-06-12] MEDS: IV D5/0.45 NACL 1,000 ML IV PRN ×2 (06:11→18:20)
--- NOTE | 2017-06-12 06:35 | NUR ---
PRINTING TABLE WORKER: RELAYED K=3.[address] SARMIENTO WT ORDER TO GIVE KCL 40MEQ IV. NOTED AND CARRIED OUT. NO SIGNIFICANT TARYN. REMAINED SEDATED ON DIPRIVAN AT 65MCG/KG/MIN, ABLE TO FOLLOW SIMPLE COMMANDS. VENT SETTINGS ORDERED TOLERATING WELL. GT FEEDING TOLERATING WELL WT 20CC RESIDUAL AT THIS TIME. HOB ELEVATED AT 35 DEGREES.
[2017-06-12] MEDS ORDERED: POTASSIUM CL. PREMIX PERIPHER. 50 ML IV SCH (07:00)
[2017-06-12] MEDS: LEVALBUTEROL HCL NEB 1.25 MG/0.5 ML VIAL.NEB NEB SCH ×3 (07:41→23:26)
[2017-06-12] MEDS ORDERED: POTASSIUM CHLORIDE 20 MEQ POWDER PACKET NG ONE ×3 (08:00→12:00)
--- NOTE | 2017-06-12 08:00 | NUR ---
PT ALERT ON DIPRIVAN 65 MCG/KG/MIN. MOVES ALL FOURS VERY WEAKLY TO COMMAND. DENIES PAIN. LABS R/V'D AND WILL REPLACE KCL AND MAGNESIUM PER MD. D/W R.T. NO VENT WEAN PLANS. FREE WATER AND IV OF D50.45 NS CONTINUES. EMERITA GLYTROL AT 60 MLS/HR WITHOUT SIGNIF RESIDUALS
[2017-06-12] MEDS ORDERED: Magnesium 1GM/D5W 100ML PREMIX PIGGYBACK IV ONE (08:30)
[2017-06-12] MEDS ORDERED: POTASSIUM CHLORIDE 20 MEQ TAB.PRT.SR PO ONE (08:30)
[2017-06-12] MEDS: methylPREDNISolone SOD SUCC 125 MG/2ML VIAL IV SCH ×2 (08:44→17:32)
[2017-06-12] MEDS: PANTOPRAZOLE 40 MG VIAL IV SCH (08:44)
[2017-06-12] MEDS: LEVETIRACETAM SOL (5 ML) 100 MG/ML UDC NG SCH ×2 (08:45→20:50)
[2017-06-12] MEDS: LACTOBACILLUS RHAMNOSUS GG 1 EACH CAP.SPRINK PO SCH ×2 (08:45→17:35)
[2017-06-12] MEDS: LamoTRIgine 25 MG TABLET PO SCH ×2 (08:45→20:50)
[2017-06-12] MEDS: OSELTAMIVIR PHOSPHATE 75 MG CAPSULE PO SCH ×2 (08:45→17:35)
[2017-06-12] MEDS: ASPIRIN EC 325 MG TABLET.DR PO SCH (08:45)
[2017-06-12] MEDS: risperiDONE-M 0.5 MG TAB.RAPDIS SL SCH ×3 (08:45→17:33)
[2017-06-12] MEDS: BENZTROPINE MESYLATE (1 MG) 1 MG TABLET PO SCH ×2 (08:45→17:35)
[2017-06-12] MEDS: ENOXAPARIN SODIUM 40 MG/0.4 ML DISP.SYRIN SQ SCH (08:47)
[2017-06-12] MEDS ORDERED: Magnesium 1GM/D5W 100ML PREMIX 100 ML IV SCH (09:00)
--- NOTE | 2017-06-12 10:00 | NUR ---
DR MERLOS IN TO R/V. SEE NEW ORDERS
[2017-06-12] MEDS ORDERED: POTASSIUM CHLORIDE 20 MEQ POWDER PACKET GT SCH (11:00)
--- NOTE | 2017-06-12 13:00 | NUR ---
SISTER UPDATED TELEPHONICALLY. THANKFUL FOR CARE
--- NOTE | 2017-06-12 13:56 | NUR ---
CHANGES MADE PER MD ORDER. PLACED ON SIMV MODE. ALARMS SET AND AUDIBLE. WILL MONITOR FOR CHANGES WORK OF BREATHING.
--- NOTE | 2017-06-12 14:00 | NUR ---
CHANGE TO SIMV MODE PSV 15 WITHOUT DISTRESS. SEDATION REDUCED TOLERATED. DR YOUNG IN TO R/V.
[2017-06-12] MEDS: HYDROMORPHONE INJ 0.5 MG/0.5 ML SYRINGE IV PRN ×2 (14:48→18:46)
[2017-06-12] MEDS: GLYTROL 1,000 ML BAG GT PRN (14:57)
--- NOTE | 2017-06-12 16:00 | NUR ---
WATCHING TV. INTACT SENSE OF HUMOR. COMFORTABLE AFTER DILAUDID
[2017-06-12] MEDS ORDERED: CLOTRIMAZOLE 1% 15 GM TUBE TP SCH (17:00)
--- NOTE | 2017-06-12 17:25 | NUR ---
RT NOTE PT REMAINS MECHANICALLY VENTILATED ON SIMV MODE. SETTINGS PRESCRIBED SIMV PS 15 PEEP +5 RR 8. ALARMS SET PER PROTOCOL AND AUDIBLE. VENT PLUGGED IN TO RED OUTLET. AMBU BAG AT BED SIDE. NO DISTRESS NOTED AT MOMENT.
[2017-06-12 18:12] LABS: ABG BASE EXCESS 4.4 mmol/L; ABG OXYGEN SATURATION 97.7 % (92.0-98.5); ABG PCO2 36.5 mmHg (35.0-45.0); ABG PH 7.497 (7.350-7.450); ABG PO2 111.1 mmHg (75.0-100.0); COHb 0.3 % (0.5-1.5); MetHb 0.4 % (0.0-1.5); PEEP,BG 5 cm H2O; SITE, ABG Right Radial; VENT MODE, BG SIMV RR 8 PS 15 +5; VT, ABG 400 mL
--- NOTE | 2017-06-12 18:31 | NUR ---
ABG ON SIMV 8 PSV 15 WITH PH 7.50 PCO2 37 PO2 111. PT ALERT. EMERITA TUBE FDGS
--- NOTE | 2017-06-12 20:00 | NUR ---
PHYSICIAN LOCUMS URGENT CARE NOTE RECEIVED PT IN BED AWAKE, RESPONDS TO VERBAL COMMANDS WITH FACIAL EXPRESSIONS, NON VERBAL. ETT 7.0 AND 21CM AT LIP LINE. ON VENT SIMV 8, TV 450, FIO2 35%, PEEP 5. TOLERATING THE SETTINGS WELL. SUCTIONED HER NEEDED SMALL AMOUNT OF WHITISH SECRETIONS NOTED. ON TELE MONITOR SINUS TACH HR 111. F/C INTACT AND PATENT DRAINING YELLOWISH COLOR URINE. YANET PICC LINE INTACT AND PATENT INFUSING D51/2 NS @75 ML/HR AND PROPOFOL 15 ML/HR, PICC LINE SITE CLEAN AND DRY. OGT INTACT AND PATENT INFUSING GLYTROL 60 ML/HR, 0 ML RESIDUAL NOTED. KEPT HOB ELEVATED. REPOSITION HER FOR SKIN MANAGEMENT AND COMFORT. SIDE RAILS UP X 3 AND CALL LIGHT WITHIN REACH. VSS. CONTINUE TO MONITOR HER. Addendum: 06/12/17 at 2142 by CHERYL BOWMAN RN BILATERAL SOFT WRIST RESTRAINTS ON.
[2017-06-12] MEDS: LORAZEPAM INJ 2 MG/ML VIAL IV PRN (20:51)
--- NOTE | 2017-06-12 20:51 | NUR ---
POSTPARTUM RN NOTE PT NOTED BECOME SLIGHTLY RESTLESS, ATIVAN 1 MG IVP GIVEN. CONTINUE TO MONITOR HER.
--- NOTE | 2017-06-12 21:21 | NUR ---
SOURCER NOTE PT CALM DOWN AND FALL ASLEEP, VSS. NO DISTRESS NOTED.
[2017-06-12] MEDS: LEVOFLOXACIN (750 MG) 750 MG TABLET PO SCH (23:12)
[2017-06-13] VITALS (54 sets, daily range): BP systolic 104–133; BP diastolic 64–93
[2017-06-13] MEDS: PROPOFOL 100 ML IV PRN ×3 (00:38→13:18)
--- NOTE | 2017-06-13 00:45 | NUR ---
RAILWAY ENGINEER NOTE ATIVAN 1 MG IVP GIVEN DUE TO PT IS RESTLESS. VSS, CONTINUE TO MONITOR HER.
[2017-06-13] MEDS: LORAZEPAM INJ 2 MG/ML VIAL IV PRN ×2 (00:47→08:15)
--- NOTE | 2017-06-13 01:15 | NUR ---
MID LEVEL CLINICIAN NOTE PT FALL ASLEEP, NO RESTLESSNESS NOTED. ALSO BED BATH GIVE. CHANGED ALL THE LINENS. PT TOLERATED IT WELL.
[2017-06-13 05:25] LABS: BASOPHILS % (AUTO) 0.2 % (0.0-2.0); EOSINOPHILS % (AUTO) 0.2 % (0.0-6.0); HEMATOCRIT 36 % (33-45); HEMOGLOBIN 11.8 g/dL (11.5-14.8); LYMPHOCYTES # (AUTO) 2.3 /CMM (0.8-4.8); LYMPHOCYTES % (AUTO) 16.2 % (20.0-44.0); MEAN CORPUSCULAR HEMOGLOBIN 30 PG (26.0-33.0); MEAN CORPUSCULAR HGB CONC 33 g/dl (31.0-36.0); MEAN CORPUSCULAR VOLUME 89 fL (82-100); MONOCYTES # (AUTO) 1.6 /CMM (0.1-1.30); MONOCYTES % (AUTO) 11.2 % (2.0-12.0); NEUTROPHILS # (AUTO) 10.1 /CMM (1.8-8.9); NEUTROPHILS % (AUTO) 72.2 % (43.0-81.0); PLATELET COUNT (AUTO) 333 /CMM (150-450); RDW COEFFICIENT OF VARIATION 14.3 (11.5-15.0); RED BLOOD CELL COUNT(AUTO) 4.01 MIL/uL (4.0-5.2)
[2017-06-13] MEDS: PIPERACILLIN /TAZOBACTAM 3.375 G in IV NS 0.9% 50 ML IV SCH ×4 (05:41→23:26)
[2017-06-13 05:49] LABS: CALCIUM, SERUM 8.3 mg/dL (8.5-10.1); CREATININE 0.5 mg/dL (0.6-1.3); PHOSPHORUS 3.3 mg/dL (2.5-4.9); POTASSIUM 3.7 mmol/L (3.5-5.1)
--- NOTE | 2017-06-13 06:48 | NUR ---
BEAUTY CULTURIST APPRENTICE NOTE PT IN BED ASLEEP, TOLERATING VENT SETTINGS. ON TELE SR HR 97. IVF D5 1/2 NS INFUSING WELL, ALSO OGTF INFUSING, 0 ML RESIDUAL NOTED. KEPT HER DRY AND CLEAN. REPOSITION HER Q2H, BILATERAL SOFT WRIST RESTRAINTS ON. F/C INTACT AND PATENT DRAINING YELLOWISH COLOR URINE. SIDE RAILS UP X 3 AND CALL LIGHT WITHIN REACH. WILL ENDORSE TO DAY SHIFT NURSE FOR CONTINUE TO CARE.
--- NOTE | 2017-06-13 07:00 | NUR ---
RN NOTE RECEIVED PT ON BED AWAKE, RESPONDS TO VERBAL COMMANDS WITH FACIAL EXPRESSIONS, NON VERBAL. ETT 7.0 AND LIP LINE AT 21CM , ON VENT TOLERATING CURRENT VENT SETTING WELL, SIMV 8, TV 450, FIO2 35%, PEEP 5. SUCTIONING DONE , ON TELE ST, HR IN LOW 100'S, REEVES DRAINING TO GRAVITY WITH YELLOW CLEAR URIN , YANET PICC LINE SITE CDI, WITH D51/2 NS @75 ML/HR AND PROPOFOL 15 ML/HR, OGT WITH GLYTROL AT 60 ML/HR RUNNING , NO RESIDUAL NOTED,PT TRIES TO PULL ON HER LINES , BILATERAL SOFT WRIST PROTECTIVE DEVICES FOR PT SAFETY, HOB ELEVATED , SR UP x3, CONTINUE TURNING AND REPOSITIONING PT FOR SKIN MANAGEMENT AND MONITOR CLSOELY.
[2017-06-13] MEDS: LEVALBUTEROL HCL NEB 1.25 MG/0.5 ML VIAL.NEB NEB SCH ×3 (07:35→23:37)
[2017-06-13] MEDS: methylPREDNISolone SOD SUCC 125 MG/2ML VIAL IV SCH ×2 (08:14→16:19)
[2017-06-13] MEDS: LACTOBACILLUS RHAMNOSUS GG 1 EACH CAP.SPRINK PO SCH ×2 (08:14→16:19)
[2017-06-13] MEDS: LamoTRIgine 25 MG TABLET PO SCH ×2 (08:14→21:28)
[2017-06-13] MEDS: BENZTROPINE MESYLATE (1 MG) 1 MG TABLET PO SCH ×2 (08:15→16:19)
[2017-06-13] MEDS: ASPIRIN EC 325 MG TABLET.DR PO SCH (08:15)
[2017-06-13] MEDS: risperiDONE-M 0.5 MG TAB.RAPDIS SL SCH ×3 (08:15→16:19)
[2017-06-13] MEDS: PANTOPRAZOLE 40 MG VIAL IV SCH (08:15)
[2017-06-13] MEDS: OSELTAMIVIR PHOSPHATE 75 MG CAPSULE PO SCH (08:15)
[2017-06-13] MEDS: LEVETIRACETAM SOL (5 ML) 100 MG/ML UDC NG SCH ×2 (08:17→21:28)
[2017-06-13] MEDS: ENOXAPARIN SODIUM 40 MG/0.4 ML DISP.SYRIN SQ SCH (08:17)
[2017-06-13] MEDS: IV D5/0.45 NACL 1,000 ML IV PRN ×2 (09:18→23:26)
[2017-06-13] MEDS ORDERED: DC PROPOFOL WHEN EXTUBATED XX PRN (10:00)
--- NOTE | 2017-06-13 10:30 | NUR ---
RN NOTES PROPOFOL DECREASED TO 25 ALEIDA/KG/MIN FOR CPAP TRAIL . CONTINUE TO MONITOR .
[2017-06-13] MEDS: ACETAMINOPHEN 325 MG TABLET PO PRN (12:13)
[2017-06-13] MEDS: HYDROMORPHONE INJ 0.5 MG/0.5 ML SYRINGE IV PRN (13:52)
[2017-06-13 15:18] LABS: ABG OXYGEN SATURATION 97.9 % (92.0-98.5); ABG PCO2 31.8 mmHg (35.0-45.0); ABG PH 7.519 (7.350-7.450); ABG PO2 124.5 mmHg (75.0-100.0); AaDO2 88.1 mmHg; COHb 0.2 % (0.5-1.5); MetHb 0.3 % (0.0-1.5); O2Hb 97.4 % (94.0-97.0); SITE, ABG Right Brachial
--- NOTE | 2017-06-13 15:52 | NUR ---
RN NOTES PT EXTUBATED BY RT, PLACED ON 3L O2 N/C , O2 SAT 100% , RESPIRATION EVEN AND UNLABORED ,VSS STABLE , SUPPORTIVE FAMILY AT THE BEDSIDE, CONTINUE TO MONITOR CLOSELY .
--- NOTE | 2017-06-13 16:00 | NUR ---
RN NOTE OGT D/KARINA PER MD ORDER .
--- NOTE | 2017-06-13 16:02 | NUR ---
PT EXTUBATED PER MD ORDER. ZERO DISTRESS NOTED ZERO STRIDOR.
--- NOTE | 2017-06-13 18:36 | NUR ---
RN NOTES RESPIRATION EVEN AND UNLABORED , ON 2L O2 N/C , NO DISTRESS NOTED, PT A/O/X3, IVF D51/2NS AT 75CC/HR RUNNING VIA R UPPER ARM PICC LINE , TOLERATING CLEAR LIQUID DIET WELL, SR UP x4, BED LOCKED AND IN LOWEST POSITION , WILL ENDORSE TO ELECTRONIC PUBLISHING SPECIALIST NURSE FOR TARYN.
--- NOTE | 2017-06-13 19:15 | NUR ---
MIXER WHIPPED TOPPING INITIAL NOTES: RECEIVED PATIENT ON BED; ON O2 THERAPY VIA NC AT 2LPM, NOT IN APPARENT DISTRESS. AWAKE AND ALERT X3 ABLE TO VERBALIZE NEEDS BUT WITH WEAK VOICE. NO COMPLAINTS OF PAIN, SINUS TACH ON THE MONITOR, HR AT 109. YANET PICC LINE IV ACCESS INTACT, IVF INFUSING ORDERED, LINE CARE RENDERED. FC INTACT, TO A CLOSED SYSTEM DRAINING VIA GRAVITY. TO MONITOR OUTPUT. BED ALARM ON, SAFETY MEASURES ENSURED. CALL LIGHT IN REACH. CONTINUOUSLY MONITORED ACCORDINGLY.
--- NOTE | 2017-06-13 21:30 | NUR ---
RN NOTES: PATIENT ABLE TO TOLERATE CLEAR LIQUIDS WELL. NO COUGHING NOR DISTRESS NOTED WITH PO INTAKE. TO ADVANCE DIET TOLERATED. CONTINUOUSLY MONITORED PATIENT.
[2017-06-14] VITALS (20 sets, daily range): BP systolic 109–128; BP diastolic 61–83
--- NOTE | 2017-06-14 01:30 | NUR ---
RN NOTES: PATIENT NOTED TO BE ANXIOUS AND RESTLESS, COMPLAINING SHE CANT SLEEP AND STARTED TO BE SLIGHTLY CONTRERAS. ATIVAN PRN GIVEN. TO MONITOR FOR CHANGES IN BEHAVIOR.
[2017-06-14] MEDS: LORAZEPAM 0.5 MG TABLET PO PRN ×2 (01:32→21:20)
[2017-06-14 05:11] LABS: BASOPHILS % (AUTO) 0.2 % (0.0-2.0); EOSINOPHILS % (AUTO) 0.1 % (0.0-6.0); HEMATOCRIT 37 % (33-45); HEMOGLOBIN 12.3 g/dL (11.5-14.8); LYMPHOCYTES # (AUTO) 2.8 /CMM (0.8-4.8); LYMPHOCYTES % (AUTO) 17.8 % (20.0-44.0); MEAN CORPUSCULAR HEMOGLOBIN 30 PG (26.0-33.0); MEAN CORPUSCULAR HGB CONC 34 g/dl (31.0-36.0); MEAN CORPUSCULAR VOLUME 89 fL (82-100); MONOCYTES # (AUTO) 1.3 /CMM (0.1-1.30); MONOCYTES % (AUTO) 8.5 % (2.0-12.0); NEUTROPHILS # (AUTO) 11.4 /CMM (1.8-8.9); NEUTROPHILS % (AUTO) 73.4 % (43.0-81.0); PLATELET COUNT (AUTO) 349 /CMM (150-450); RDW COEFFICIENT OF VARIATION 13.8 (11.5-15.0); RED BLOOD CELL COUNT(AUTO) 4.11 MIL/uL (4.0-5.2); WHITE BLOOD COUNT (AUTO) 15.6 K/uL (4.3-11.0)
[2017-06-14 05:29] LABS: CALCIUM, SERUM 8.3 mg/dL (8.5-10.1); CREATININE 0.5 mg/dL (0.6-1.3); MAGNESIUM 1.9 mg/dL (1.8-2.4); PHOSPHORUS 3.7 mg/dL (2.5-4.9); POTASSIUM 3.4 mmol/L (3.5-5.1)
[2017-06-14] MEDS: PIPERACILLIN /TAZOBACTAM 3.375 G in IV NS 0.9% 50 ML IV SCH ×3 (05:50→17:27)
--- NOTE | 2017-06-14 06:29 | NUR ---
RN CLOSING NOTES: PATIENT REMAINED ON O2 VIA NC AT 2LPM, TOLERATING WELL, WITHOUT RESPIRATORY DISTRESS. SINUS RHYTHM ON THE MONITOR. IV ACCESS REMAINED INTACT, IVF INFUSING. AM LABS DRAWN, RESULTS IN. SKIN CARE RENDERED. FC INTACT, UO DRAINED AND DOCUMENTED. SAFETY MEASURES AND SEIZURE PRECAUTIONS ENSURED AT ALL TIMES. CONTINUOUSLY MONITORED. TO ATTEMPT TO START PATIENT ON SOFT DIET. TO ENDORSE TO AM SHIFT RN.
--- NOTE | 2017-06-14 07:00 | NUR ---
RN NOTES: RECEIVED PATIENT ON BED A/Ox3, ABLE TO VERBALIZE NEEDS, RESPIRATION EVEN AND UNLABORED, ON O2 2L N/C ,ON TELE HR IN 90'S SR , REEVES DRAINING TO GRAVITY WITH YELLOW CLEAR URINE, YANET PICC LINE IV ACCESS SITE CDI, WITH D51/2 NS AT 75CC/HR RUNNING , BED ALARM ON, SR UP x3, CALL LIGHT WITHIN EASY REACH, SAFETY MEASURES ENSURED. CONTINUE TO MONITOR CLOSELY.
[2017-06-14] MEDS: LEVALBUTEROL HCL NEB 1.25 MG/0.5 ML VIAL.NEB NEB SCH ×2 (07:20→15:23)
[2017-06-14] MEDS: methylPREDNISolone SOD SUCC 125 MG/2ML VIAL IV SCH ×2 (08:04→16:08)
[2017-06-14] MEDS: BENZTROPINE MESYLATE (1 MG) 1 MG TABLET PO SCH ×2 (08:07→16:08)
[2017-06-14] MEDS: LamoTRIgine 25 MG TABLET PO SCH ×2 (08:07→21:20)
[2017-06-14] MEDS: ENOXAPARIN SODIUM 40 MG/0.4 ML DISP.SYRIN SQ SCH (08:07)
[2017-06-14] MEDS: LEVETIRACETAM SOL (5 ML) 100 MG/ML UDC NG SCH ×2 (08:07→21:20)
[2017-06-14] MEDS: ASPIRIN EC 325 MG TABLET.DR PO SCH (08:08)
[2017-06-14] MEDS: LACTOBACILLUS RHAMNOSUS GG 1 EACH CAP.SPRINK PO SCH ×2 (08:08→16:08)
[2017-06-14] MEDS: risperiDONE-M 0.5 MG TAB.RAPDIS SL SCH ×3 (08:08→16:08)
[2017-06-14] MEDS: PANTOPRAZOLE 40 MG VIAL IV SCH (08:08)
[2017-06-14] MEDS ORDERED: LACTOSE-FREE FOOD 237 ML LIQUID PO SCH (08:30)
[2017-06-14] MEDS ORDERED: POTASSIUM CHLORIDE 20 MEQ TAB.PRT.SR PO ONE (10:30)
[2017-06-14] MEDS ORDERED: POTASSIUM CHLORIDE 20 MEQ POWDER PACKET NG SCH (10:30)
[2017-06-14] MEDS: BOOST FOOD- BERRY 237 ML BOX PO SCH ×2 (10:33→16:09)
--- NOTE | 2017-06-14 11:00 | NUR ---
RN NOTES PT AT REST , RESPIRATION EVEN AND UNLABORED, TESS ANY DISTRESS
[2017-06-14] MEDS: IV D5/0.45 NACL 1,000 ML IV PRN (14:25)
--- NOTE | 2017-06-14 15:00 | NUR ---
RN NOTES VSS STABLE , PT TESS ANY DISTRESS , SUPPORTIVE FAMILY AT THE BEDSIDE.
--- NOTE | 2017-06-14 17:00 | NUR ---
RN NOTES REPORT GIVEN TO BLANCHE SANDERS , PT TRANSFERRED TO ROOM 114-2, TELE BED IN STABLE CONDITION.
--- NOTE | 2017-06-14 17:15 | NUR ---
RN NOTES RECEIVED PT FROM ICU, ON 2L NC SATING WELL NO SOB OR DISTRESS NOTED. A&0X2-3 WITH PERIODS OF CONFUSION. SR ON THE TELE LASHA HR IN THE 100S. REEVES DRAINING TO GRAVITY. YANET PICC LINE WITH IVF AT 75ML/HR. BED LOCKED AND IN LOWEST POSITION CALL LIGHT WITHIN REACH, WILL CONT TO LASHA AND ENDORSE TO ONCOMING SHIFT
[2017-06-15] VITALS (9 sets, daily range): BP systolic 105–129; BP diastolic 69–84
[2017-06-15] MEDS: LEVALBUTEROL HCL NEB 1.25 MG/0.5 ML VIAL.NEB NEB SCH ×4 (00:16→23:35)
[2017-06-15] MEDS: BOOST FOOD- BERRY 237 ML BOX PO SCH ×2 (08:00→17:51)
[2017-06-15] MEDS: PANTOPRAZOLE 40 MG VIAL IV SCH (08:51)
[2017-06-15] MEDS: methylPREDNISolone SOD SUCC 125 MG/2ML VIAL IV SCH ×2 (08:51→17:43)
[2017-06-15] MEDS: LACTOBACILLUS RHAMNOSUS GG 1 EACH CAP.SPRINK PO SCH ×2 (09:34→17:51)
[2017-06-15] MEDS: risperiDONE-M 0.5 MG TAB.RAPDIS SL SCH ×3 (09:34→17:51)
[2017-06-15] MEDS: LEVETIRACETAM SOL (5 ML) 100 MG/ML UDC NG SCH ×2 (09:34→22:24)
[2017-06-15] MEDS: LamoTRIgine 25 MG TABLET PO SCH ×2 (09:34→22:24)
[2017-06-15] MEDS: BENZTROPINE MESYLATE (1 MG) 1 MG TABLET PO SCH ×2 (09:34→17:51)
[2017-06-15] MEDS: ASPIRIN EC 325 MG TABLET.DR PO SCH (09:34)
[2017-06-15] MEDS: ENOXAPARIN SODIUM 40 MG/0.4 ML DISP.SYRIN SQ SCH (09:41)
[2017-06-15] MEDS: IV D5/0.45 NACL 1,000 ML IV PRN (10:25)
--- NOTE | 2017-06-15 10:30 | NUR ---
MS CROP PEST CONTROL SPECIALIST NOTE, PATIENT WAS SEEN BY PHYSICAL THERAPY. PATIENT TOLERATED WEIGHT BEARING 40FT PLUS. PATIENT HAS WEAK LOWER EXTREMITIES, AND NEED ASSISTANCE AMBULATING. WILL F/U WITH PT AND CONTINUE TO MONITOR.
[2017-06-15 11:35] LABS: CALCIUM, SERUM 8.4 mg/dL (8.5-10.1); CREATININE 0.6 mg/dL (0.6-1.3); MAGNESIUM 1.9 mg/dL (1.8-2.4); PHOSPHORUS 3.1 mg/dL (2.5-4.9); POTASSIUM 2.9 mmol/L (3.5-5.1)
[2017-06-15 14:00] LABS: BASOPHILS % (AUTO) 0.1 % (0.0-2.0); EOSINOPHILS % (AUTO) 0.2 % (0.0-6.0); HEMATOCRIT 39 % (33-45); HEMOGLOBIN 12.9 g/dL (11.5-14.8); LYMPHOCYTES % (AUTO) 11.1 % (20.0-44.0); MEAN CORPUSCULAR HEMOGLOBIN 30 PG (26.0-33.0); MEAN CORPUSCULAR HGB CONC 34 g/dl (31.0-36.0); MEAN CORPUSCULAR VOLUME 89 fL (82-100); MONOCYTES # (AUTO) 0.4 /CMM (0.1-1.30); MONOCYTES % (AUTO) 2.2 % (2.0-12.0); NEUTROPHILS # (AUTO) 15.6 /CMM (1.8-8.9); NEUTROPHILS % (AUTO) 86.4 % (43.0-81.0); PLATELET COUNT (AUTO) 436 /CMM (150-450); RED BLOOD CELL COUNT(AUTO) 4.35 MIL/uL (4.0-5.2); WHITE BLOOD COUNT (AUTO) 18.1 K/uL (4.3-11.0)
--- NOTE | 2017-06-15 16:29 | NUR ---
TELE PROTEIN CHEMIST NOTE, PATIENT POWER OF RESEARCH PROGRAM MANAGER (FRANCISCA ESCAMILLA) CALLED CONCERNING PATIENT SUBSTANCE ABUSE AND EATING DISORDER HISTORY NOTED IN EMR. IF ANY SEVERE CHANGE IN CONDITION TO CALL HER AT [phone].
[2017-06-15] MEDS ORDERED: Magnesium 1GM/D5W 100ML PREMIX PIGGYBACK IV ONE (20:00)
[2017-06-15] MEDS ORDERED: POTASSIUM CHLORIDE 20 MEQ TAB.PRT.SR PO ONE (20:00)
[2017-06-15] MEDS ORDERED: Magnesium 1GM/D5W 100ML PREMIX 100 ML IV SCH (20:00)
[2017-06-15] MEDS ORDERED: MIRTAZAPINE 15 MG TABLET PO SCH (22:00)
[2017-06-16] VITALS: BP 116/76
[2017-06-16 04:00] VITALS: BP 131/85
[2017-06-16] MEDS: IV D5/0.45 NACL 1,000 ML IV PRN (05:30)
[2017-06-16 06:35] LABS: BASOPHILS % (AUTO) 0.3 % (0.0-2.0); EOSINOPHILS % (AUTO) 0.3 % (0.0-6.0); HEMATOCRIT 37 % (33-45); HEMOGLOBIN 12.5 g/dL (11.5-14.8); LYMPHOCYTES # (AUTO) 3.2 /CMM (0.8-4.8); LYMPHOCYTES % (AUTO) 24.1 % (20.0-44.0); MEAN CORPUSCULAR HEMOGLOBIN 30 PG (26.0-33.0); MEAN CORPUSCULAR HGB CONC 34 g/dl (31.0-36.0); MEAN CORPUSCULAR VOLUME 88 fL (82-100); MONOCYTES # (AUTO) 1.4 /CMM (0.1-1.30); MONOCYTES % (AUTO) 10.4 % (2.0-12.0); NEUTROPHILS # (AUTO) 8.7 /CMM (1.8-8.9); NEUTROPHILS % (AUTO) 64.9 % (43.0-81.0); PLATELET COUNT (AUTO) 476 /CMM (150-450); RDW COEFFICIENT OF VARIATION 14.2 (11.5-15.0); WHITE BLOOD COUNT (AUTO) 13.4 K/uL (4.3-11.0)
--- NOTE | 2017-06-16 06:39 | NUR ---
RN CLOSING NOTES PATIENT WITH NO ACUTE CHANGE IN CONDITION OBSERVED OVERNIGHT. PATIENT REMAINS CALM AND COOPERATIVE. NO BEHAVIORAL MANIFESTATION NOTED. REMAINS SR-ST WITH PVCs, 90-110. YANET PICC REMAINS INTACT, IVF ORDERED. F/C INTACT AND DRAINING VIA GRAVITY. ALL DUE MEDS GIVEN ORDERED. NEEDS ANTICIPATED AND MET. SAFETY AND COMFORT ENSURED. BED IN LOW AND LOCKED POSITION. CALL LIGHT IN REACH. WILL ENDORSE ACCORDINGLY FOR CONTINUITY OF CARE.
[2017-06-16 06:42] LABS: CALCIUM, SERUM 8.4 mg/dL (8.5-10.1); CREATININE 0.5 mg/dL (0.6-1.3); MAGNESIUM 2.3 mg/dL (1.8-2.4); PHOSPHORUS 3.2 mg/dL (2.5-4.9); POTASSIUM 3.4 mmol/L (3.5-5.1)
[2017-06-16 08:00] VITALS: BP 123/93
[2017-06-16] MEDS: LEVALBUTEROL HCL NEB 1.25 MG/0.5 ML VIAL.NEB NEB SCH (08:07)
[2017-06-16] MEDS: BOOST FOOD- BERRY 237 ML BOX PO SCH (08:26)
[2017-06-16] MEDS: BENZTROPINE MESYLATE (1 MG) 1 MG TABLET PO SCH (08:27)
[2017-06-16] MEDS: risperiDONE-M 0.5 MG TAB.RAPDIS SL SCH ×2 (08:27→13:25)
[2017-06-16] MEDS: LEVETIRACETAM SOL (5 ML) 100 MG/ML UDC NG SCH (08:27)
[2017-06-16] MEDS: LACTOBACILLUS RHAMNOSUS GG 1 EACH CAP.SPRINK PO SCH (08:28)
[2017-06-16] MEDS: ASPIRIN EC 325 MG TABLET.DR PO SCH (08:28)
[2017-06-16] MEDS: LamoTRIgine 25 MG TABLET PO SCH (08:28)
[2017-06-16] MEDS: ENOXAPARIN SODIUM 40 MG/0.4 ML DISP.SYRIN SQ SCH (08:38)
[2017-06-16] MEDS: PANTOPRAZOLE 40 MG VIAL IV SCH (09:08)
[2017-06-16] MEDS: methylPREDNISolone SOD SUCC 125 MG/2ML VIAL IV SCH (09:08)
[2017-06-16] MEDS ORDERED: MIRT15TA PO (10:57)
[2017-06-16] MEDS ORDERED: PANT40TA2 PO (10:57)
[2017-06-16] MEDS ORDERED: ASPI-869 PO (10:57)
[2017-06-16] MEDS ORDERED: LAMO25TA5 PO (10:57)
[2017-06-16] MEDS ORDERED: ALBUT2 NEB (10:57)
[2017-06-16] MEDS ORDERED: LEVA1.2524 NEB (10:57)
[2017-06-16] MEDS ORDERED: RISP0.5T8 SL (10:57)
[2017-06-16] MEDS ORDERED: PRED20TA GT (10:57)
[2017-06-16] MEDS ORDERED: [UNRECOGNIZED DRUG - OTHER] PO (10:57)
[2017-06-16] MEDS ORDERED: ENOX40DI SQ (10:57)
[2017-06-16] MEDS ORDERED: PRED20TA PO (10:57)
[2017-06-16] MEDS ORDERED: BENZ1TAB7 PO (10:57)
[2017-06-16 11:57] VITALS: BP 115/83
[2017-06-16] MEDS ORDERED: POTASSIUM CHLORIDE 20 MEQ POWDER PACKET PO SCH ×2 (12:00→13:30)
--- NOTE | 2017-06-16 14:22 | NUR ---
TELE HEAD COACH DISCHARGE NOTE, PATIENT AO X4 WITH PERIODS OF CONFUSION OTHERWISE VS STABLE, NO DISTRESS, NO SKIN IMPAIRMENT AND AMBULATING. PATIENT LEFT WITH ALL BELONGINGS. REEVES CATHETER, IV, AND PICC LINE REMOVED. ENDORSED PATIENT TO EMT TRANSPORT SERVICES, [place]. GAVE REPORT TO [facility] TO MP: [phone].
== END 2017-06-16 13:24 | DRG 870 ==
LOC: ER 21:24 → TELE 06-05 00:57 → MED 06-05 08:41 → ICU 06-07 18:15 → TELE1 06-14 17:06
PROVIDERS: ADMIT Internal Medicine; ATTEND Internal Medicine
PROC: 5A1955Z Respiratory Ventilation, Greater than 96 Consecutive Hours (ICD-10-PCS; principal; 2017-06-07)
PROC: 0BH17EZ Insertion of Endotracheal Airway into Trachea, Via Natural or Artificial Opening (ICD-10-PCS; 2017-06-07)
PROC: 05H533Z Insertion of Infusion Device into Right Subclavian Vein, Percutaneous Approach (ICD-10-PCS; 2017-06-08)
PROC: 02HV33Z Insertion of Infusion Device into Superior Vena Cava, Percutaneous Approach (ICD-10-PCS; 2017-06-13)
PROC: B548ZZA Ultrasonography of Superior Vena Cava, Guidance (ICD-10-PCS; 2017-06-13)
DX: A41.9 Sepsis, unspecified organism (principal); J69.0 Pneumonitis due to inhalation of food and vomit; J96.01 Acute respiratory failure with hypoxia; E43 Unspecified severe protein-calorie malnutrition; G92 Toxic encephalopathy; N17.9 Acute kidney failure, unspecified; J44.1 Chronic obstructive pulmonary disease with (acute) exacerbation; E87.0 Hyperosmolality and hypernatremia; F11.20 Opioid dependence, uncomplicated; F13.20 Sedative, hypnotic or anxiolytic dependence, uncomplicated; F19.239 Other psychoactive substance dependence with withdrawal, unspecified; F05 Delirium due to known physiological condition; J44.0 Chronic obstructive pulmonary disease with (acute) lower respiratory infection; E78.5 Hyperlipidemia, unspecified; E87.6 Hypokalemia; Z79.899 Other long term (current) drug therapy; Z86.73 Personal history of transient ischemic attack (TIA), and cerebral infarction without residual deficits; F17.200 Nicotine dependence, unspecified, uncomplicated; G40.909 Epilepsy, unspecified, not intractable, without status epilepticus; G62.9 Polyneuropathy, unspecified; F39 Unspecified mood [affective] disorder; F29 Unspecified psychosis not due to a substance or known physiological condition; G89.29 Other chronic pain; M51.36 Other intervertebral disc degeneration, lumbar region; F41.1 Generalized anxiety disorder; Z68.21 Body mass index [BMI] 21.0-21.9, adult; F50.9 Eating disorder, unspecified; R65.20 Severe sepsis without septic shock
CPT/HCPCS: 31720; 36415; 36569; 36600; 70450-TC; 71045-TC; 80048-TC; 80053-TC; 80076-TC; 80202-TC; 80305; 81000-TC; 82248-TC; 82803-TC; 82962-TC; 83605-TC; 83735-TC; 84100-TC; 84443-TC; 84484-TC; 85025-TC; 85730-TC; 87040-TC; 87070-TC; 87081-TC; 87086-TC; 87400; 94002-TC; 94003-TC; 94640-TC; 94762-TC; 94799-TC; 95819-TC; 99082-TC; A4216; A4606; C9113; G0480; J1630; J1650; J1953; J1956; J2060; J2270; J2543; J2930; J3010; J3370; J3475; J3480; J3490; J7030; J7050; J7060; J7070; Z7610

== ENCOUNTER 2018-08-19 15:03 | Inpatient (IN) | payer MEDICARE, BC ==
[~2018-08-19] VITALS: Ht 162.6 cm; Wt 53.1 kg
[~2018-08-19 15:03] MED LIST changes: -ACET-868 PO; +ALBUT2 NEB; +ASPI-869 PO; +ATOR10TA PO; +BENZ1TAB7 PO; -BISA10SU61 RC; +CHOL200026 PO; -CLON1TAB PO; +CRAN450T3 PO; -DEXT1DRO3 RIGHTEYE; +ENOX40DI SQ; +GABA-532 PO; +LACT10SO PO; +LAMO25TA5 PO; +LEVA1.2524 NEB; -LEVO750T21 PO; +LIDO30AD10 TP; -MAGN400O6 PO; +MELO-107 PO; +METH-406 PO; -MINE7OIN RIGHTEYE; +MIRT15TA PO; +MORP60TA4 PO; -NA P133E RC; -NICO-676 TD; +OXYC30TA2 PO; -OXYC5CAP PO; +PANT40TA4 PO; -POLY17PO3 PO; +PRED20TA GT; +PRED20TA PO; +PROC10TA13 PO; +RISP0.5T8 SL; -SENN8.6C5 PO; -SIMV20TA2 PO; +TEMA30CA PO; +ZOLP10TA6 PO; +[UNRECOGNIZED DRUG - OTHER] PO
--- NOTE | 2018-08-19 15:15 | NUR ---
LOIDA Valverde From Board and Care "ALOC was last seen normal 2d ago BS-98." PATIENT A/OX1, BREATHING EVEN AND UNLABORED, NOTED WITH LEFT SIDED FACIAL DROOP. PATIENT ASSESSED AND EXAMINED BY DR. EDWARDS, PATIENT PLACED ON THE MONITOR, VITALS STABLE, IV LINE ESTABLISHED. WILL MONITOR.
[2018-08-19] MEDS ORDERED: ONDA4TAB5 PO (15:22)
[2018-08-19] MEDS ORDERED: RISP0.253 PO (15:22)
[2018-08-19] MEDS ORDERED: TRAM50TA2 PO (15:22)
[2018-08-19] MEDS ORDERED: ASPI-869 PO (15:22)
[2018-08-19] MEDS ORDERED: MIRT7.5T10 PO (15:22)
[2018-08-19] MEDS ORDERED: BENZ0.5T43 PO (15:22)
[2018-08-19] MEDS ORDERED: FAMO20TA8 PO (15:22)
[2018-08-19 15:27] LABS: BASOPHILS # (AUTO) 0.1 /CMM (0.0-0.2); BASOPHILS % (AUTO) 0.6 % (0.0-2.0); HEMATOCRIT 49 % (33-45); HEMOGLOBIN 16.3 g/dL (11.5-14.8); LYMPHOCYTES # (AUTO) 1.9 /CMM (0.8-4.8); LYMPHOCYTES % (AUTO) 15.7 % (20.0-44.0); MEAN CORPUSCULAR HGB CONC 34 g/dl (31.0-36.0); MEAN CORPUSCULAR VOLUME 89 fL (82-100); MONOCYTES % (AUTO) 8.1 % (2.0-12.0); NEUTROPHILS # (AUTO) 9.4 /CMM (1.8-8.9); NEUTROPHILS % (AUTO) 75.6 % (43.0-81.0); PLATELET COUNT (AUTO) 331 /CMM (150-450); RED BLOOD CELL COUNT(AUTO) 5.49 MIL/uL (4.0-5.2); WHITE BLOOD COUNT (AUTO) 12.4 K/uL (4.3-11.0)
[2018-08-19] MEDS ORDERED: IV NS 0.9% 1,000 ML BAG IV ONE (15:30)
[2018-08-19 15:42] LABS: ALBUMIN 4.3 g/dL (3.4-5.0); BILIRUBIN,DIRECT 0.1 mg/dL (0.0-0.2); BILIRUBIN,TOTAL 0.5 mg/dL (0.2-1.0); CALCIUM, SERUM 9.1 mg/dL (8.5-10.1); CREATININE 0.9 mg/dL (0.6-1.3); TOTAL PROTEIN, SERUM 7.9 g/dL (6.4-8.2)
[2018-08-19 15:44] LABS: POTASSIUM 2.8 mmol/L (3.5-5.1)
[2018-08-19] MEDS ORDERED: ACETAMINOPHEN 650 MG/SUPP.RECT RC ONE ×2 (15:48→16:00)
[2018-08-19] MEDS ORDERED: POTASSIUM CL. PREMIX PERIPHER. 100 ML ONE (15:53)
[2018-08-19 15:58] LABS: BILIRUBIN,URINE MODERATE (NEGATIVE); BLOOD, URINE Negative Ery/uL (NEGATIVE); KETONES,URINE >=160 (NEGATIVE); LEUKOCYTE ESTERASE ,URINE Negative (NEGATIVE); NITRITE, URINE Negative (NEGATIVE); PROTEIN,URINE 100 mg/dl (NEGATIVE); UGLUCOSE Negative (NEGATIVE); UROBILINOGEN,URINE 0.2 EU/dL (0.2)
[2018-08-19 16:01] LABS: APPEARANCE,URINE HAZY (CLEAR); COLOR,URINE DARK YELLOW (YELLOW)
[2018-08-19] MEDS: POTASSIUM CL. PREMIX PERIPHER. 50 ML IV SCH ×2 (16:05→17:17)
--- NOTE | 2018-08-19 16:05 | NUR ---
PATIENT CAME BACK FROM CT, PLACED BACK ON THE MONITOR.
--- NOTE | 2018-08-19 16:11 | NUR ---
ANDI ESPINOSA, PATIENT'S SISTER CALLED.
[2018-08-19 16:12] LABS: RBC,URINE 0-2 /HPF (0-2); WBC,URINE 0-2 /HPF (0-3)
[2018-08-19 16:13] LABS: BACTERIA,URINE Few /HPF (None Seen); SQUAMOUS EPITHELIAL CELL,UR Few /HPF (None Seen)
--- NOTE | 2018-08-19 16:19 | NUR ---
PAGED [facility] -- ACCOUNTING MANAGER ASSISTANT CONTROLLER IS DR LOBATO.
[2018-08-19] MEDS ORDERED: VANCOMYCIN 1 GM in IV D5W 250 ML IV ONE (16:30)
[2018-08-19] MEDS ORDERED: PIPERACILLIN /TAZOBACTAM 3.375 G in IV D5W 50 ML IV ONE (16:30)
--- NOTE | 2018-08-19 17:06 | NUR ---
ROOM GIVEN 325-2 MANAGER [employer]
--- NOTE | 2018-08-19 17:24 | NUR ---
REPORT GIVEN TO ZOHREH SANDERS 325-2.
[2018-08-19] MEDS ORDERED: IV NS 0.9% 1,000 ML IV PRN (18:07)
[2018-08-19 18:10] VITALS: BP 122/68
--- NOTE | 2018-08-19 18:10 | NUR ---
REVERSE ENGINEERCOLOR TECHNICIAN NOTE RECEIVED PT FROM ER VIA RNEY WITH DX OF ALTERED MENTAL STATUS. PT IS ALERT AND ORIENTED TO SELF ONLY, NOTED WITH LEFT SIDED FACIAL DROOP. VS OBTAINED PER PROTOCOL. PT PLACED ON SECURITIES AND REAL ESTATE DIRECTOR AND IS SINUS RHYTHM, HR IN 60'S AT THIS TIME. PT NOTED WITH LEFT WRIST #20G AND RIGHT WRIST #20G IV THAT IS PATENT, CLEAN, DRY AND INTACT. PT NOTED WITH REEVES CATHETER THAT IS DRAINING YELLOW URINE. SEIZURE PRECAUTIONS INITIATED FOR HX OF SEIZURE DISORDER. NPO STATUS AND ASPIRATION PRECAUTIONS MAINTAINED. PT DR. HOUSTON LOCKWOOD AT THE BEDSIDE FOR ASSESSMENT AND ADMISSION ORDERS. BED IS LOCKED AND IN LOWEST POSITION, SIDE RAILS UP X2, BED ALARM ON, CALL LIGHT AND POSSESSIONS WITHIN REACH.
--- NOTE | 2018-08-19 18:12 | NUR ---
PATIENT TRANSFERRED TO ROOM 325-2 VIA ACLS PROTOCOL. PATIENT IN STABLE CONDITION.
[2018-08-19] MEDS: PANTOPRAZOLE 40 MG VIAL IV SCH (18:28)
[2018-08-19] MEDS ORDERED: Thiamine 100 MG in IV D5W 50 ML IV SCH (18:30)
[2018-08-19] MEDS ORDERED: ONDANSETRON HCL/PF 4 MG/2 ML VIAL IVP PRN (18:30)
[2018-08-19] MEDS ORDERED: ACETAMINOPHEN 650 MG/SUPP.RECT RC PRN (18:30)
[2018-08-19] MEDS ORDERED: LORAZEPAM INJ 2 MG/ML VIAL IV PRN (18:30)
--- NOTE | 2018-08-19 18:30 | NUR ---
SECOND LANGUAGE TUTOR NOTE DR. HOUSTON LOCKWOOD ON THE PHONE WITH [facility] FOR PT HX.
[2018-08-19] MEDS: LEVETIRACETAM (500MG) 1,000 MG in IV NS 0.9% 100 ML IV SCH (18:55)
[2018-08-19] MEDS ORDERED: ALBUTEROL FS 2.5 MG/0.5 ML VIAL.NEB NEB PRN (19:00)
--- NOTE | 2018-08-19 19:03 | NUR ---
CLUB STEWARD CLOSING NOTE PT IN BED, SEMI-FOWLERS, ALERT AND ORIENTED TO SELF. BREATHING IS EVEN AND UNLABORED ON ROOM AIR, NO ACUTE DISTRESS NOTED AT THIS TIME. PT ON HABILITATION ASSISTANT WITH SINUS RHYTHM, HR IN 60'S. LEFT WRIST #20G AND RIGHT WRIST #18G IVS ARE INFUSING ORDERED WITHOUT REDNESS OR SWELLING. NPO AND ASPIRATION PRECAUTIONS MAINTAINED. PT REQUIRING COMPLETION OF ADMISSION DOCUMENTATION, URINE DRUG SCREEN COLLECTION, AND POSSIBLE MRSA NARES COLLECTION. BED IS LOCKED AND IN LOWEST POSITION, SIDE RAILS UP X2, BED ALARM ON, CALL LIGHT AND POSSESSIONS WITHIN REACH. WILL ENDORSE TO POLICE ARTIST NURSE.
--- NOTE | 2018-08-19 19:45 | NUR ---
RN NOTE RECEIVED PT BEDSIDE REPORT FROM AM RN. PT IS ALERT AND ORIENTED TO SELF ONLY, NOTED WITH LEFT SIDED FACIAL DROOP. PT IS ON PALEOLOGIST AND IS SINUS RHYTHM, HR IN 60'S AT THIS TIME. PT NOTED WITH LEFT WRIST #20G AND RIGHT WRIST #20G IV THAT IS PATENT, CLEAN, DRY AND INTACT. REEVES CATHETER IS IN PLACE DRAINING YELLOW URINE ON GRAVITY. SEIZURE PRECAUTIONS INITIATED FOR HX OF SEIZURE DISORDER. NPO STATUS AND ASPIRATION PRECAUTIONS MAINTAINED. ALL SAFETY MEASURES ARE IN PLACE. BED IS LOCKED AND IN LOWEST POSITION, SIDE RAILS UP X2, BED ALARM ON, CALL LIGHT WITHIN REACH.WILL CONTINUE TO MONITOR PATIENT CLOSELY.
[2018-08-19 20:00] VITALS: BP 114/56
[2018-08-19] MEDS ORDERED: PIPERACILLIN /TAZOBACTAM 3.375 G in IV D5W 50 ML IV SCH (21:00)
--- NOTE | 2018-08-19 22:15 | NUR ---
RN NOTES PATIENT HAS IV FLUIDS 0.9%NS @150ML/HR RUNNING WITH Na OF 154 AND ADMITTED DX IS HYPERNATREMIA. CALLED MARIA LUISA MICHAEL WITH THIS INFORMATION . NEW ORDER OF D/C 0.9%NS AND PLACED D5 1/2NS @100ML/HR IN PLACE. WILL FOLLOW THE ORDERS AND CONTINUE TO MONITOR PATIENT CLOSELY
[2018-08-19] MEDS: IV D5/0.45 NACL 1,000 ML IV PRN (22:43)
[2018-08-19] MEDS: PIPERACILLIN /TAZOBACTAM 3.375 G in IV D5W 100 ML IV SCH (23:54)
[2018-08-20] VITALS (8 sets, daily range): BP systolic 115–124; BP diastolic 61–75
[2018-08-20 06:05] LABS: BASOPHILS % (AUTO) 0.4 % (0.0-2.0); EOSINOPHILS % (AUTO) 0.1 % (0.0-6.0); HEMATOCRIT 41 % (33-45); HEMOGLOBIN 13.9 g/dL (11.5-14.8); LYMPHOCYTES # (AUTO) 2.2 /CMM (0.8-4.8); LYMPHOCYTES % (AUTO) 20.9 % (20.0-44.0); MEAN CORPUSCULAR HGB CONC 34 g/dl (31.0-36.0); MEAN CORPUSCULAR VOLUME 88 fL (82-100); MONOCYTES # (AUTO) 0.8 /CMM (0.1-1.30); MONOCYTES % (AUTO) 7.9 % (2.0-12.0); NEUTROPHILS # (AUTO) 7.5 /CMM (1.8-8.9); NEUTROPHILS % (AUTO) 70.7 % (43.0-81.0); PLATELET COUNT (AUTO) 254 /CMM (150-450); RED BLOOD CELL COUNT(AUTO) 4.65 MIL/uL (4.0-5.2); WHITE BLOOD COUNT (AUTO) 10.5 K/uL (4.3-11.0)
[2018-08-20 06:27] LABS: CALCIUM, SERUM 7.9 mg/dL (8.5-10.1); CREATININE 0.7 mg/dL (0.6-1.3); MAGNESIUM 2.2 mg/dL (1.8-2.4); PHOSPHORUS 2.7 mg/dL (2.5-4.9)
[2018-08-20 06:35] LABS: THYROID STIMULATING HORMONE 2.439 uIU/mL (0.358-3.74)
[2018-08-20 06:57] LABS: POTASSIUM 2.5 mmol/L (3.5-5.1)
--- NOTE | 2018-08-20 07:00 | NUR ---
RN NOTES GOT A CALL FROM LAB WITH CRITICAL VALUE OF POTASSIUM 2.5. MD MORENO NOTIFIED AND IT IS ENDORSED TO AM SHIFT RN FOR F/U AND MIXED ANIMAL VETERINARIAN.
[2018-08-20] MEDS: LEVETIRACETAM (500MG) 1,000 MG in IV NS 0.9% 100 ML IV SCH ×2 (07:13→18:19)
--- NOTE | 2018-08-20 07:30 | NUR ---
INDIGO VAT TENDER CLOTH NOTES PT IN BED, AWAKE, ALERT TO SELF, VERBALLY RESPONSIVE, KNOWS WHERE SHE IS BUT DOES NOT KNOW WHAT HOSPITAL, UNABLE TO STATE HER BIRTHDAY, ORIENTATION PROVIDED, NO COMPLAINT OF PAIN, RESPIRATIONS NORMAL, IV FLUIDS INFUSING WELL, CALL LIGHT WITHIN REACH, WILL CONTINUE TO MONITOR.
[2018-08-20] MEDS: PIPERACILLIN /TAZOBACTAM 3.375 G in IV D5W 100 ML IV SCH (08:15)
[2018-08-20] MEDS: PANTOPRAZOLE 40 MG VIAL IV SCH (08:19)
[2018-08-20] MEDS: IV D5/0.45 NACL 1,000 ML IV PRN (09:27)
[2018-08-20] MEDS: POTASSIUM CL. PREMIX PERIPHER. 50 ML IV SCH ×6 (09:28→15:23)
[2018-08-20] MEDS ORDERED: POTASSIUM CHLORIDE 20 MEQ POWDER PACKET PO ONE (11:00)
[2018-08-20] MEDS ORDERED: POTASSIUM CHLORIDE 20 MEQ POWDER PACKET PO SCH (12:00)
--- NOTE | 2018-08-20 13:00 | NUR ---
RN MS NOTES PT IN BED, AWAKE, ALERT TO SELF, WITH CONFUSION, CALM AND COOPERATIVE AT THIS TIME, SEEN BY HOUSTON RETIREMENT MANAGER, ORDER FOR POTASSIUM REPLACEMENT RECEIVED, SEEN BY PHYSICAL THERAPY, ABLE TO WALK WITH A WALKER ALONG THE HALLWAY, WILL CONTINUE TO MONITOR.
[2018-08-20] MEDS: Potassium Chloride 40 MEQ in IV D5/0.45 NACL 1,000 ML IV PRN (13:07)
--- NOTE | 2018-08-20 18:25 | NUR ---
RN MS NOTES PT IN BED, AWAKE, ALERT AND ORIENTED, WITH PERIODS OF BEING FORGETFUL, NO COMPLAINT OF PAIN, RESPIRATIONS NORMAL, CALL LIGHT WITHIN REACH, IV FLUIDS INFUSING WELL, MORE AWAKE AND ALERT THIS AFTERNOON, TOLERATING CURRENT DIET, BED ALARM ON AT ALL TIMES, NEEDS ATTENDED.
--- NOTE | 2018-08-20 19:20 | NUR ---
RN OPEN NOTES RECEIVED PATIENT AWAKE IN BED. A/OX3. NO SIGNS OF DISTRESS OR DISCOMFORT. BREATHING EVEN AND UNLABORED. HAS IV ACCESS IN R WRIST WITH KCL 40MEQ IN D5 1/2NS INFUSING, PATENT AND INTACT, NO SIGNS OF REDNESS OR INFILTRATION. HAS F/C INTACT DRAINING CLEAR BRUCE FLUID. BED IN LOW LOCKED POSITION WITH SIDE RAILS X3. ON SEIZURE PRECAUTION. CALL LIGHT WITHIN REACH. WILL CONTINUE TO MONITOR.
[2018-08-21] MEDS: Potassium Chloride 40 MEQ in IV D5/0.45 NACL 1,000 ML IV PRN (02:49)
[2018-08-21] MEDS: LEVETIRACETAM (500MG) 1,000 MG in IV NS 0.9% 100 ML IV SCH (05:38)
--- NOTE | 2018-08-21 06:28 | NUR ---
RN CLOSING NOTES PATIENT RESTING IN BED. A/OX3. NO SIGNS OF DISTRESS OR DISCOMFORT. BREATHING EVEN AND UNLABORED. HAS IV ACCESS IN R WRIST WITH KCL 40MEQ IN D5 1/2NS INFUSING, PATENT AND INTACT, NO SIGNS OF REDNESS OR INFILTRATION. HAS F/C INTACT DRAINING CLEAR BRUCE FLUID. ALL NEEDS MET. NO SIGNIFICANT CHANGES THROUGH THE NIGHT. BED IN LOW LOCKED POSITION WITH SIDE RAILS X3. ON SEIZURE PRECAUTION. CALL LIGHT WITHIN REACH. WILL ENDORSE TO AM SHIFT FOR TARYN.
[2018-08-21 06:37] LABS: CALCIUM, SERUM 8.4 mg/dL (8.5-10.1); CREATININE 0.6 mg/dL (0.6-1.3); POTASSIUM 3.6 mmol/L (3.5-5.1)
--- NOTE | 2018-08-21 07:25 | NUR ---
MS/RN Patient received Patient received from overnight houseperson. A/O X3, vital signs stable, denies any pain or discomfort at this time. IV fluids infusing at 100ml/hr via right wrist 18g. MRI brain scheduled for today without contrast, consent form and check list signed. Call light within reach, will continue to monitor and ensure safety.
[2018-08-21 08:07] VITALS: BP 112/84
[2018-08-21] MEDS: THIAMINE HCL 100 MG TABLET PO SCH (08:28)
[2018-08-21] MEDS: PANTOPRAZOLE 40 MG VIAL IV SCH (08:30)
[2018-08-21 08:35] VITALS: BP 112/64
--- NOTE | 2018-08-21 09:00 | NUR ---
MS/equipment oiler Morning medications administered as ordered, no difficulty swallowing.
--- NOTE | 2018-08-21 11:08 | NUR ---
MS/RN S/B Antwon Styles VAULT ATTENDANT Seen by VAULT ATTENDANT - patient may be discharged back to SNF once cleared by neuro.
--- NOTE | 2018-08-21 11:55 | NUR ---
MS/RN MRI Patient taken to MRI via wheelchair, medical record with patient.
--- NOTE | 2018-08-21 13:00 | NUR ---
MS/RN Back to room Patient back in room following MRI, no result as of et.
[2018-08-21 16:00] VITALS: BP 118/73
[2018-08-21 16:01] VITALS: BP 118/73
--- NOTE | 2018-08-21 16:01 | NUR ---
MS/RN S/B Neuro Seen by neuro - patient cleared for discharge.
[2018-08-21] MEDS: ENSURE ENLIVE CHOC 237 ML CAN PO SCH (16:58)
--- NOTE | 2018-08-21 17:00 | NUR ---
MS/plumbing inspector Patient cleared by Antwon Styles for discharge back to [facility] this evening, transport arranged by telehealth case manager for 19:45 sampler pickup. Paperwork completed, chart copied. Gotti catheter removed, waiting for patient to void. Heplock removed, pressure dressing applied. Message left with sister Siomara to inform of discharge plans.
--- NOTE | 2018-08-21 19:00 | NUR ---
MS/director of religious activities held Discharge held by BOOT REPAIRER due to patient's increased confusion. Sister at bedside and refusing for patient to be transferred tonight.
--- NOTE | 2018-08-21 19:06 | NUR ---
MS/process architect platform material handler manager made aware of held discharge, transport placed on will call.
--- NOTE | 2018-08-21 19:40 | NUR ---
RN MS OPENING NOTES RECEIVED PT IN BED, AWAKE ALERT ORIENTED X2-3, CONFUSED THOUGHT PROCESS, REORIENTATION NEEDED, BREATHING EVEN AND UNLABORED ON ROOM AIR, NO SOB, NOTED. NO COMPLAINT OF PAIN OR DISCOMFORT AT THIS TIME. NO IV ACCESS AT THIS TIME, REMOVED DUE TO D/C PLANNING, PT WILL BE STAYING OVER NIGHT, IV ACCESS TO BE REINSERTED. BED IN LOWEST LOCKED POSITION, CALL LIGHT WITHIN REACH AT ALL TIMES, WILL CONTINUE TO MONITOR FREQUENTLY.
[2018-08-21 20:00] VITALS: BP 110/85
[2018-08-21] MEDS: LEVETIRACETAM (250 MG) 250 MG TABLET PO SCH (20:31)
[2018-08-21] MEDS ORDERED: LORAZEPAM 1 MG TABLET PO PRN (21:00)
--- NOTE | 2018-08-22 06:22 | NUR ---
RN MS CLOSING NOTES PT REMAINS IN BED, AWAKE ALERT ORIENTED X2-3,, BREATHING EVEN AND UNLABORED ON ROOM AIR, NO SOB, NOTED. NO COMPLAINT OF PAIN OR DISCOMFORT AT THIS TIME. NO IV ACCESS AT THIS TIME, REMOVED DUE TO D/C PLANNING, PT REFUSES REINSERTION, NO IV MEDS TO BE GIVEN. BED IN LOWEST LOCKED POSITION, CALL LIGHT WITHIN REACH AT ALL TIMES, WILL ENDORSE TO DAY NURSE FOR TARYN.
[2018-08-22 08:00] VITALS: BP 115/82
[2018-08-22] MEDS: ENSURE ENLIVE CHOC 237 ML CAN PO SCH (08:00)
--- NOTE | 2018-08-22 08:00 | NUR ---
MS RN NOTES PATIENT IN BED RESTING NO SOB OR ACUTE DISTRESS NOTED. PATIENT ALERT, ORIENTED X3. PERIPHERAL IV INTACT PATENT. BED IN LOW LOCKED POSITION. CALL LIGHT WITHIN REACH. WILL CONTINUE TO MONITOR.
[2018-08-22] MEDS: THIAMINE HCL 100 MG TABLET PO SCH (08:54)
[2018-08-22] MEDS: LEVETIRACETAM (250 MG) 250 MG TABLET PO SCH (09:01)
[2018-08-22] MEDS ORDERED: PANTOPRAZOLE 40 MG TABLET.DR PO SCH (09:30)
--- NOTE | 2018-08-22 11:08 | NUR ---
MS RN NOTES REPORT GIVEN TO ANDI SANDERS FOR TARYN. PATIENT STABLE IN BED.
--- NOTE | 2018-08-22 11:55 | NUR ---
PUDDLER PILE DRIVING NOTES PT VITAL SIGNS STABLE AT DISCHARGE. BELONGINGS LIST CHECKED AND SIGNED. ALL DISCHARGE PAPERWORK GIVEN TO THE PATIENT. PT IV REMOVED BEFORE DISCHARGE. PT REFUSED PHOTOS AT DISCHARGE. PT LEFT VIA AMBULANCE TO [facility].
== END 2018-08-22 12:15 | DRG 640 ==
LOC: ER 15:05 → TELE 17:53 → MED 08-20 16:04
PROVIDERS: ADMIT Nurse Practitioner Acute Care; ATTEND Nurse Practitioner Acute Care
DX: E51.2 Wernicke's encephalopathy (principal); N17.0 Acute kidney failure with tubular necrosis; E87.0 Hyperosmolality and hypernatremia; E78.5 Hyperlipidemia, unspecified; E87.6 Hypokalemia; G40.909 Epilepsy, unspecified, not intractable, without status epilepticus; E86.1 Hypovolemia; F19.10 Other psychoactive substance abuse, uncomplicated; J44.9 Chronic obstructive pulmonary disease, unspecified; Z86.73 Personal history of transient ischemic attack (TIA), and cerebral infarction without residual deficits; F29 Unspecified psychosis not due to a substance or known physiological condition; F50.9 Eating disorder, unspecified; G50.0 Trigeminal neuralgia; G51.31 Clonic hemifacial spasm, right; F10.10 Alcohol abuse, uncomplicated
CPT/HCPCS: 36415; 70450-TC; 70551-TC; 71045-TC; 80048-TC; 80061-TC; 80076-TC; 80305; 81000-TC; 82140-TC; 83605-TC; 83735-TC; 84100-TC; 84443-TC; 84484-TC; 85025-TC; 85730-TC; 87040-TC; 87081-TC; 87086-TC; C9113; G0378; G0480; J1953; J2543; J3370; J3411; J3480; J3490; J7030; J7050; J7060

== ENCOUNTER 2018-08-25 12:16 | Inpatient (IN) | payer MEDICARE, BC ==
[~2018-08-25] VITALS: Ht 162.6 cm; Wt 55.8 kg
[~2018-08-25 12:16] MED LIST changes: -ALBUT2 NEB; +BENZ0.5T43 PO; -BENZ1TAB7 PO; -CHOL200026 PO; -CRAN450T3 PO; -ENOX40DI SQ; +FAMO20TA8 PO; -LACT10SO PO; -LEVA1.2524 NEB; -LIDO30AD10 TP; -MELO-107 PO; -MIRT15TA PO; +MIRT7.5T10 PO; +ONDA4TAB5 PO; -OXYC30TA2 PO; -PANT40TA4 PO; -PRED20TA GT; -PRED20TA PO; -PROC10TA13 PO; +RISP0.253 PO; -RISP0.5T8 SL; +TRAM50TA2 PO; -ZOLP10TA6 PO; -[UNRECOGNIZED DRUG - OTHER] PO
[2018-08-25] MEDS ORDERED: MORP30CP13 PO (12:34)
--- NOTE | 2018-08-25 12:35 | NUR ---
HAO 87Harpreet FROM [facility] C/O GLF LOWER EXTREMITY WEAKNESS, + HEADTRAUMA -KO. SMALL LAC ON BACK OF HEAD, NO BLEEDING. NEGATIVE NEURO DEFICITS. STATES NECK PAIN 5/10. RIGHT-SIDED FACIAL WEAKNESS R/T CANCER IN RIGHT NECK PER PT. MISSING 2 FINGERS ON LEFT HAND. NO ACUTE DISTRESS NOTED. PREMIX OPERATOR CONCENTRATE CISCO AT BEDSIDE. AWAITING ORDERS.
--- NOTE | 2018-08-25 12:48 | NUR ---
BUILDER'S LABOURER AT BEDSIDE FOR EKG AND WOUND CARE.
[2018-08-25 12:57] LABS: BASOPHILS # (AUTO) 0.1 /CMM (0.0-0.2); BASOPHILS % (AUTO) 0.8 % (0.0-2.0); EOSINOPHILS % (AUTO) 1.4 % (0.0-6.0); HEMATOCRIT 35 % (33-45); HEMOGLOBIN 11.8 g/dL (11.5-14.8); LYMPHOCYTES # (AUTO) 2.4 /CMM (0.8-4.8); LYMPHOCYTES % (AUTO) 26.9 % (20.0-44.0); MEAN CORPUSCULAR HGB CONC 34 g/dl (31.0-36.0); MEAN CORPUSCULAR VOLUME 90 fL (82-100); MONOCYTES # (AUTO) 0.7 /CMM (0.1-1.30); NEUTROPHILS # (AUTO) 5.6 /CMM (1.8-8.9); NEUTROPHILS % (AUTO) 62.9 % (43.0-81.0); PLATELET COUNT (AUTO) 184 /CMM (150-450); WHITE BLOOD COUNT (AUTO) 8.8 K/uL (4.3-11.0)
[2018-08-25 13:04] LABS: CALCIUM, SERUM 8.5 mg/dL (8.5-10.1); CARBON DIOXIDE 28 mmol/L (21-32); CHLORIDE 108 mmol/L (98-107); CREATININE 0.8 mg/dL (0.6-1.3); GLUCOSE 93 mg/dL (74-106); POTASSIUM 3.7 mmol/L (3.5-5.1); SODIUM SERUM 141 mmol/L (136-145); UREA NITROGEN, BLOOD 8 mg/dL (7-18)
--- NOTE | 2018-08-25 13:07 | NUR ---
JULIEN PECK AT BEDSIDE FOR STAPLE APPLICATION
--- NOTE | 2018-08-25 13:45 | NUR ---
SPOKE WITH PT'S SISTER/POA ON THE PHONE. PROVIDED HER WITH UPDATE ON PT CONDITION.
--- NOTE | 2018-08-25 14:23 | NUR ---
PT TOLERATING FLUIDS WELL. SPACE PLANNER SPOKE WITH FACILITY WHO IS AWARE OF LEG WEAKNESS AND AGREE FOR US TO SEND HER BACK.
[2018-08-25] MEDS ORDERED: IV NS 0.9% 500 ML BAG IV ONE (15:00)
--- NOTE | 2018-08-25 15:10 | NUR ---
IV ACCESS OBTAINED. IVF INFUSING. THEATRE INSTRUCTOR AT BEDSIDE FOR BELONGINGS/MRSA. READY FOR ADMIT.
--- NOTE | 2018-08-25 15:44 | NUR ---
REPORT GIVEN TO TOMMY HASKINS FOR 309-2 MS, FOR TARYN
--- NOTE | 2018-08-25 16:35 | NUR ---
[facility]
--- NOTE | 2018-08-25 17:00 | NUR ---
RECEIVED PATIENT AWAKE A/O X4. BREATHING UNLABORED AND EVEN ON ROOM AIR. VS ARE STABLE. PATIENT RISK FOR FALL, HAS LACERATION ON BACK OF THE HEAD WITH ON STITCH (pictures are taken and placed in pt chart).PT UNSTEADY AND NEEDS ASSISTANCE TO AMBULATE. IV LINE TO R HAND 20G INTACT AND PATIENT.PATIENT ORIENTED TO ROOM AND TO UNIT. BED ALARM ACTIVATED, IN LOWEST POSITION WITH SIDE RAILS UPX2. CALL LIGHT WITHIN REACH. ADMITTING MD NOTIFIED, AWAITING FOR NEW ORDERS.
[2018-08-25] MEDS ORDERED: HYDROCODONE/APAP 5/325MG 1 EACH TABLET PO PRN (17:30)
[2018-08-25] MEDS ORDERED: METHOCARBAMOL (750MG) 750 MG TABLET PO PRN (17:30)
[2018-08-25] MEDS ORDERED: clonazePAM 1 MG TABLET PO PRN (17:30)
[2018-08-25] MEDS ORDERED: ZOLPIDEM TARTRATE 5 MG TABLET PO PRN (17:30)
[2018-08-25] MEDS ORDERED: MAGNESIUM HYDROXIDE 30 ML UDC PO PRN (17:30)
[2018-08-25] MEDS ORDERED: ACETAMINOPHEN 325 MG TABLET PO PRN (17:30)
[2018-08-25] MEDS ORDERED: Z GUARD REMEDY 2 OZ OINT TP PRN (17:30)
[2018-08-25] MEDS ORDERED: ONDANSETRON HCL/PF 4 MG/2 ML VIAL IVP PRN (17:30)
[2018-08-25] MEDS ORDERED: TEMAZEPAM 15 MG CAPSULE PO PRN (17:30)
[2018-08-25] MEDS ORDERED: CARISOPRODOL 350 MG TABLET PO PRN (17:30)
[2018-08-25 17:38] VITALS: BP 107/62
[2018-08-25] MEDS: risperiDONE 0.25 MG TABLET PO SCH (18:18)
[2018-08-25] MEDS: PREGABALIN 100 MG CAPSULE PO SCH (18:18)
[2018-08-25] MEDS: LEVETIRACETAM (250 MG) 250 MG TABLET PO SCH (18:19)
[2018-08-25] MEDS: BENZTROPINE MESYLATE (1 MG) 1 MG TABLET PO SCH (18:19)
--- NOTE | 2018-08-25 19:15 | NUR ---
PATIENT RESTING IN BED, DINNER ORDERED. WILL ENDORSE TO NEXT SIFT FOR TARYN.
[2018-08-25 20:00] VITALS: BP 91/52
--- NOTE | 2018-08-25 20:07 | NUR ---
MS RN NOTES RECEIVED PATIENT AWAKE IN BED WITH NO DISTRESS NOTED. CALL LIGHT WITHIN REACH. PERIPHERAL LINE INTACT AND PATENT. NO C/O PAIN OR DISCOMFORT. SEIZURE PRECAUTIONS OBSERVED AND MAINTAINED. BED IN LOW LOCK SETTING. ENCOURAGED USE OF CALL LIGHT FOR ASSISTANCE AND VERBALIZED GOOD UNDERSTANDING. ROOM FREE OF CLUTTER AND BELONGINGS KEPT NEAR BEDSIDE. WILL CONTINUE TO MONITOR.
[2018-08-25] MEDS: MORPHINE SULFATE SR 30 MG TABLET.SA PO SCH (21:34)
[2018-08-25] MEDS ORDERED: ATORVASTATIN 10 MG TABLET PO SCH (22:00)
[2018-08-25] MEDS ORDERED: MIRTAZAPINE 15 MG TABLET PO SCH (22:00)
--- NOTE | 2018-08-26 06:26 | NUR ---
MS RN NOTES PATIENT ASLEEP IN BED WITH NO DISTRESS NOTED. CALL LIGHT WITHIN REACH. ALL DUE MEDS GIVEN ORDERED WITH NO ASE NOTED. PERIPHERAL LINE INTACT AND PATENT. NO C/O PAIN OR DISCOMFORT. SEIZURE PRECAUTIONS OBSERVED AND MAINTAINED AT ALL TIMES. BED IN LOW LOCK SETTING. ROOM FREE OF CLUTTER AND BELONGINGS KEPT NEAR BEDSIDE. WILL ENDORSE TO ONCOMING SHIFT.
[2018-08-26 08:00] VITALS: BP 97/41
[2018-08-26] MEDS ORDERED: FAMOTIDINE (20 MG) 20 MG TABLET PO SCH (09:00)
[2018-08-26] MEDS ORDERED: ERGOCALCIFEROL (VITAMIN D 2) 50,000 UNIT CAPSULE PO SCH (09:00)
[2018-08-26] MEDS ORDERED: LamoTRIgine 25 MG TABLET PO SCH (09:00)
[2018-08-26] MEDS ORDERED: ASPIRIN EC 325 MG TABLET.DR PO SCH (09:00)
[2018-08-26] MEDS: LEVETIRACETAM (250 MG) 250 MG TABLET PO SCH (09:25)
[2018-08-26] MEDS: risperiDONE 0.25 MG TABLET PO SCH ×2 (09:26→12:03)
[2018-08-26] MEDS: BENZTROPINE MESYLATE (1 MG) 1 MG TABLET PO SCH (09:26)
[2018-08-26] MEDS: PREGABALIN 100 MG CAPSULE PO SCH (09:26)
[2018-08-26] MEDS: MORPHINE SULFATE SR 30 MG TABLET.SA PO SCH (09:30)
[2018-08-26 10:07] LABS: BASOPHILS # (AUTO) 0.1 /CMM (0.0-0.2); BASOPHILS % (AUTO) 0.9 % (0.0-2.0); EOSINOPHILS % (AUTO) 1.3 % (0.0-6.0); HEMATOCRIT 40 % (33-45); HEMOGLOBIN 13.6 g/dL (11.5-14.8); LYMPHOCYTES # (AUTO) 2.2 /CMM (0.8-4.8); LYMPHOCYTES % (AUTO) 26.8 % (20.0-44.0); MEAN CORPUSCULAR HGB CONC 34 g/dl (31.0-36.0); MEAN CORPUSCULAR VOLUME 89 fL (82-100); MONOCYTES # (AUTO) 0.6 /CMM (0.1-1.30); MONOCYTES % (AUTO) 7.5 % (2.0-12.0); NEUTROPHILS # (AUTO) 5.1 /CMM (1.8-8.9); NEUTROPHILS % (AUTO) 63.5 % (43.0-81.0); PLATELET COUNT (AUTO) 216 /CMM (150-450); RED BLOOD CELL COUNT(AUTO) 4.56 MIL/uL (4.0-5.2); WHITE BLOOD COUNT (AUTO) 8.1 K/uL (4.3-11.0)
[2018-08-26 10:10] LABS: APPEARANCE,URINE CLEAR (CLEAR); BILIRUBIN,URINE NEGATIVE (NEGATIVE); BLOOD, URINE NEGATIVE Ery/uL (NEGATIVE); COLOR,URINE YELLOW (YELLOW); KETONES,URINE NEGATIVE (NEGATIVE); LEUKOCYTE ESTERASE ,URINE NEGATIVE (NEGATIVE); NITRITE, URINE NEGATIVE (NEGATIVE); PROTEIN,URINE NEGATIVE (NEGATIVE); UGLUCOSE NEGATIVE (NEGATIVE); UROBILINOGEN,URINE 0.2 EU/dL (0.2)
[2018-08-26 10:36] LABS: CALCIUM, SERUM 9.3 mg/dL (8.5-10.1); CREATININE 0.7 mg/dL (0.6-1.3); MAGNESIUM 2.2 mg/dL (1.8-2.4); PHOSPHORUS 4.4 mg/dL (2.5-4.9); POTASSIUM 4.2 mmol/L (3.5-5.1)
--- NOTE | 2018-08-26 14:50 | NUR ---
patient cleared for d/c back to assisted living by N.P. Patient alert and oriented x4 , breathing unlabored and even on room air, BP at base line. No dizziness , ambulates with assistance. D/C instructions and education provided to patient: pt verbalized understanding. All belongings with the patient and valuable form sighed. Pictures taken less than 24 h (in pt's chart). Iv assess removed , ID wrist band removed. Patient picked up by ambulance.
== END 2018-08-26 15:06 | DRG 605 ==
LOC: ER 12:18 → MED 15:48
PROVIDERS: ADMIT Nurse Practitioner Acute Care; ATTEND Nurse Practitioner Acute Care
PROC: 0HQ0XZZ Repair Scalp Skin, External Approach (ICD-10-PCS; principal; 2018-08-25)
DX: S01.01XA Laceration without foreign body of scalp, initial encounter (principal); E51.2 Wernicke's encephalopathy; E86.0 Dehydration; I95.1 Orthostatic hypotension; E78.5 Hyperlipidemia, unspecified; G40.909 Epilepsy, unspecified, not intractable, without status epilepticus; G50.0 Trigeminal neuralgia; J44.9 Chronic obstructive pulmonary disease, unspecified; Z86.73 Personal history of transient ischemic attack (TIA), and cerebral infarction without residual deficits; Y93.9 Activity, unspecified; Y92.89 Other specified places as the place of occurrence of the external cause; F29 Unspecified psychosis not due to a substance or known physiological condition; F19.10 Other psychoactive substance abuse, uncomplicated; G51.39 Clonic hemifacial spasm, unspecified; G89.29 Other chronic pain; W18.30XA Fall on same level, unspecified, initial encounter; F50.9 Eating disorder, unspecified; Z79.82 Long term (current) use of aspirin
CPT/HCPCS: 36415; 70450-TC; 80048-TC; 81000-TC; 83735-TC; 84100-TC; 84484-TC; 85025-TC; 87081-TC; 87086-TC; 87186-TC; A6402; A6403; G0378; J7040

== ENCOUNTER 2019-01-26 12:08 | Emergency (ER) | payer MEDICARE, BC ==
[~2019-01-26] VITALS: Ht 162.6 cm; Wt 55.8 kg
[~2019-01-26 12:08] MED LIST changes: -GABA-532 PO; +MORP30CP13 PO; -MORP60TA4 PO
--- NOTE | 2019-01-26 12:13 | NUR ---
PT BIBRA 58 FROM [facility] C/O L SHOULDER PAIN, PT IS AAOX3, NOT IN RESPIRATORY DISTRESS, HOOKED TO MONITOR, KEPT RESTED AND COMFORTABLE, WILL CONTINUE TO MONITOR.
--- NOTE | 2019-01-26 12:29 | NUR ---
SEEN AND EXAMINED BY MARIAN LA
[2019-01-26] MEDS ORDERED: HYDROCODONE/APAP 10/325MG 1 EA TABLET PO ONE (12:30)
--- NOTE | 2019-01-26 12:42 | NUR ---
TUNG NUT GROWER AT BEDSIDE FOR XRAY.
[2019-01-26] MEDS ORDERED: HYDROCODONE/APAP 10/325MG 1 EA TABLET ONE (12:44)
--- NOTE | 2019-01-26 13:36 | NUR ---
REPORT GIVEN TO TOMMY BOLES OF [facility] FOR UPDATE.
--- NOTE | 2019-01-26 14:14 | NUR ---
CALLED [facility] FOR BLS TRANSPORT. ETA 45-60 MIN TRIP#[id number]
--- NOTE | 2019-01-26 14:56 | NUR ---
REPORT GIVEN TO EMT FOR PT TRANSFER BACK TO [facility].
[2019-01-26 14:58] VITALS: BP 119/71
== END 2019-01-26 15:15 ==
LOC: ER 12:09
DX: S42.212A Unspecified displaced fracture of surgical neck of left humerus, initial encounter for closed fracture (principal); J44.9 Chronic obstructive pulmonary disease, unspecified; G40.909 Epilepsy, unspecified, not intractable, without status epilepticus; I10 Essential (primary) hypertension; R53.1 Weakness; Z85.858 Personal history of malignant neoplasm of other endocrine glands; Z86.73 Personal history of transient ischemic attack (TIA), and cerebral infarction without residual deficits; Z98.890 Other specified postprocedural states; Z79.82 Long term (current) use of aspirin; Z88.8 Allergy status to other drugs, medicaments and biological substances; X58.XXXA Exposure to other specified factors, initial encounter; Y93.89 Activity, other specified; Y92.89 Other specified places as the place of occurrence of the external cause; Y99.8 Other external cause status
CPT/HCPCS: 73030-TC; 73060-TC; 73080-TC

== ENCOUNTER 2022-07-25 15:49 | Inpatient (IN) | payer MEDICARE, BC ==
[~2022-07-25] VITALS: Ht 152.4 cm; Wt 30.8 kg
--- NOTE | 2022-07-25 15:50 | NUR ---
BIBA FOR LEFT LEG PAIN SINCE LAST NIGHT. A/O X 3. TOLERATING WELL ON ROOM AIR.
[2022-07-25] MEDS ORDERED: NORT25CA PO (16:04)
[2022-07-25] MEDS ORDERED: OXYC10TA49 PO (16:04)
[2022-07-25] MEDS ORDERED: DOCU-141 PO (16:04)
[2022-07-25] MEDS ORDERED: PANT40TA49 PO (16:04)
[2022-07-25] MEDS ORDERED: GABA600T12 PO (16:04)
[2022-07-25] MEDS ORDERED: DULO30CA52 PO (16:04)
[2022-07-25] MEDS ORDERED: KETO10TA2 PO (16:04)
[2022-07-25] MEDS ORDERED: BISA5TAB10 PO (16:04)
[2022-07-25] MEDS ORDERED: PREG-57 PO (16:04)
[2022-07-25] MEDS ORDERED: BUPR1FIL19 SL (16:04)
[2022-07-25] MEDS ORDERED: LACT10SO3 PO (16:04)
--- NOTE | 2022-07-25 16:23 | NUR ---
BLOOD SAMPLES OBTAINED
--- NOTE | 2022-07-25 18:16 | NUR ---
COVID SWAB OBTAINED
[2022-07-25 18:30] LABS: BASOPHILS % (AUTO) 0.2 % (0.0-2.0); EOSINOPHILS % (AUTO) 0.4 % (0.0-6.0); HEMATOCRIT 37 % (33-45); HEMOGLOBIN 11.9 g/dL (11.5-14.8); LYMPHOCYTES # (AUTO) 1.4 K/uL (0.8-4.8); LYMPHOCYTES % (AUTO) 12.6 % (20.0-44.0); MEAN CORPUSCULAR HGB CONC 32 g/dl (31.0-36.0); MEAN CORPUSCULAR VOLUME 87 fL (82-100); MONOCYTES # (AUTO) 0.5 K/uL (0.1-1.30); MONOCYTES % (AUTO) 4.4 % (2.0-12.0); NEUTROPHILS # (AUTO) 9.4 K/uL (1.8-8.9); NEUTROPHILS % (AUTO) 82.4 % (43.0-81.0); PLATELET COUNT (AUTO) 311 K/uL (150-450); RED BLOOD CELL COUNT(AUTO) 4.26 MIL/uL (4.0-5.2); WHITE BLOOD COUNT (AUTO) 11.4 K/uL (4.3-11.0)
--- NOTE | 2022-07-25 18:30 | NUR ---
MOVE SHEET SUBMITTED.
--- NOTE | 2022-07-25 18:33 | NUR ---
URINE SAMPLE COLLECTED AND PLACED IN BIN
[2022-07-25 18:40] LABS: BILIRUBIN,URINE NEGATIVE (NEGATIVE); COLOR,URINE YELLOW (YELLOW); LEUKOCYTE ESTERASE ,URINE NEGATIVE (NEGATIVE); NITRITE, URINE NEGATIVE (NEGATIVE); PH,URINE 6.5 (5.0-8.0); PROTEIN,URINE NEGATIVE (NEGATIVE); UGLUCOSE NEGATIVE (NEGATIVE); UROBILINOGEN,URINE 0.2 EU/dL (0.2)
[2022-07-25 18:41] LABS: CALCIUM, SERUM 9.1 mg/dL (8.5-10.1); CREATININE 0.7 mg/dL (0.6-1.3); POTASSIUM 3.9 mmol/L (3.5-5.1)
[2022-07-25 18:49] LABS: ALBUMIN 3.7 g/dL (3.4-5.0); BILIRUBIN,DIRECT 0.2 mg/dL (0.0-0.2); BILIRUBIN,TOTAL 0.4 mg/dL (0.2-1.0); TOTAL PROTEIN, SERUM 7.4 g/dL (6.4-8.2)
[2022-07-25] MEDS ORDERED: KETOROLAC TROMETHAMINE INJ 30 MG/ML VIAL IV ONE (19:00)
[2022-07-25] MEDS ORDERED: MORPHINE SULFATE INJ 2 MG/ML DISP.SYRIN ONE (19:00)
[2022-07-25] MEDS ORDERED: KETOROLAC TROMETHAMINE 15 MG/ML VIAL ONE (19:00)
[2022-07-25] MEDS ORDERED: MORPHINE SULFATE INJ 2 MG/ML DISP.SYRIN IV ONE (19:00)
--- NOTE | 2022-07-25 21:18 | NUR ---
PT TAKEN TO CT VIA [facility]
--- NOTE | 2022-07-25 21:25 | NUR ---
PT RETURNED TO ER BED [address]
--- NOTE | 2022-07-25 21:39 | NUR ---
REPORT GIVEN TO ABISAI Woody RN FOR TARYN
--- NOTE | 2022-07-25 21:49 | NUR ---
PT TRANSFERRING TO [address] [place], [place] [id number] [place] [facility]IA H[facility] PROTOCOL. VSS. ALL BELONGINGS WITH PT.
--- NOTE | 2022-07-25 21:50 | NUR ---
MS REGISTERED NURSE BEHAVIORAL HEALTH NOTE PATIENT WAS TRANSFERRED TO THE UNIT FROM ER ON A GURNEY. SHE IS ON RA, TOLERATED WELL. NO S/S OF DISTRESS NOR SOB. UPON ARRIVAL, VITAL SIGNS WERE TAKEN; WNL. PT HAS ONE IV ACCESS AT HER LEFT FA, #22 G, SL. FLUSHED WELL. IV SITE IS PATENT AND INTACT. PT IS ALERT AND ORIENTED, AO X 3. HOWEVER, PT IS FORGETFUL. ORIENTED THE PATIENT WITH SURROUNDINGS, AND INSTRUCTED PT TO CALL THE ARGUELLES FOR HELP. PT VERBALIZED UNDERSTANDING. PT IS ON SEIZURE PRECAUTION, SIDE RAILS ARE PADDED TO PREVENT INJURY. SAFETY MEASURES ARE IN PLACED: BED IN LOWEST AND LOCKED POSITION; SIDE RAILS UP X 3; CALL LIGHT AND TABLE ARE WITHIN REACH; BED ALARM IS SET. WILL MONITOR THE PT'S CONDITION AND PROVIDE THE CARE PT NEEDS.
[2022-07-25 22:00] VITALS: BP 113/77
--- NOTE | 2022-07-25 22:00 | NUR ---
MS RN NOTE PT STATS SHE IS VEGETARIAN, BUT OKAY TO EAT / DRINK DAIRY. CURRENTLY, PT IS ON NPO. PLEASE FOLLOW UP ONCE THE PT IS RESUME ON REGULAR DIET.
[2022-07-25] MEDS ORDERED: MAGNESIUM HYDROXIDE 30 ML UDC PO PRN (23:00)
[2022-07-25] MEDS ORDERED: ONDANSETRON HCL/PF 4 MG/2 ML VIAL IVP PRN (23:00)
[2022-07-25] MEDS ORDERED: clonazePAM 2 MG TABLET PO PRN (23:00)
[2022-07-25] MEDS ORDERED: Z GUARD REMEDY 4 OZ OINT TP PRN (23:00)
[2022-07-25] MEDS ORDERED: ACETAMINOPHEN 325 MG TABLET PO PRN (23:00)
--- NOTE | 2022-07-25 23:00 | NUR ---
MS RN NOTE PT'S SISTER, ANDI ESPINOSA, STATS SHE IS HER DPOA. SHE WANTS TO BE CONTACTED BY [employer] FARM MANAGER REGARDING HER SISTER'S HOSPITALIZATION. HER HOME PHONE NUMBER IS [phone]; CELL PHONE NUMBER IS [phone]. WILL ENDORSE DAY SHIFT NURSE TO FOLLOW UP.
[2022-07-25 23:21] VITALS: BP 113/77
[2022-07-25] MEDS ORDERED: LACTULOSE 10 G/15 ML UDC (PYXIS) PO PRN (23:30)
[2022-07-25] MEDS: ZOLPIDEM TARTRATE 5 MG TABLET PO PRN (23:36)
[2022-07-25] MEDS: LEVETIRACETAM (250 MG) 250 MG TABLET PO SCH (23:36)
[2022-07-25] MEDS: IV D5/0.45 NACL 1,000 ML IV PRN (23:46)
--- NOTE | 2022-07-25 23:55 | NUR ---
MS RN NOTE PT REQUESTED FOR SLEEPING PILL. PRN PO MEDICATION, AMBIEN, GIVEN PER MD ORDER.
--- NOTE | 2022-07-26 | NUR ---
MS TOMMY NOTE PT IS ON NPO AFTER MIDNIGHT PER MD ORDER.
--- NOTE | 2022-07-26 00:28 | NUR ---
MS RN NOTE SCANNED THE PT'S BLADDER USING A BLADDER SCANNER. IT SHOWS MORE THAN 999 ML OF URINE IS IN THE BLADDER. INSERTED A 16 FR REEVES CATHETER IN THE PT, RECEIVED LIGHT YELLOW COLOR CLEAR URINE IMMEDIATELY. INFLATED 10 CC OF STERILE WATER INTO THE BALLOON TO SECURE THE CATHETER. PT TOLERATED WELL.
[2022-07-26 05:56] LABS: BASOPHILS % (AUTO) 0.4 % (0.0-2.0); EOSINOPHILS % (AUTO) 1.1 % (0.0-6.0); HEMATOCRIT 35 % (33-45); HEMOGLOBIN 11.1 g/dL (11.5-14.8); LYMPHOCYTES # (AUTO) 1.4 K/uL (0.8-4.8); LYMPHOCYTES % (AUTO) 13.9 % (20.0-44.0); MEAN CORPUSCULAR HGB CONC 32 g/dl (31.0-36.0); MEAN CORPUSCULAR VOLUME 87 fL (82-100); MONOCYTES # (AUTO) 0.4 K/uL (0.1-1.30); MONOCYTES % (AUTO) 3.8 % (2.0-12.0); NEUTROPHILS % (AUTO) 80.8 % (43.0-81.0); PLATELET COUNT (AUTO) 268 K/uL (150-450); RED BLOOD CELL COUNT(AUTO) 3.96 MIL/uL (4.0-5.2)
[2022-07-26 06:27] LABS: CALCIUM, SERUM 8.4 mg/dL (8.5-10.1); CREATININE 0.5 mg/dL (0.6-1.3); PHOSPHORUS 3.8 mg/dL (2.5-4.9); POTASSIUM 3.5 mmol/L (3.5-5.1)
--- NOTE | 2022-07-26 06:57 | NUR ---
MS RN CLOSING NOTE PATIENT IS SLEEPING IN BED, EASILY BEING AROUSED. SHE IS ON RA, TOLERATED WELL. NO S/S OF DISTRESS NOR SOB. PT IS ALERT AND ORIENTED, AO X 3. HOWEVER, PT IS FORGETFUL. IV ACCESS IS AT HER LEFT FA, #22 G, RUNNING D5 1/2NS @75 ML/HR. IV SITE IS PATENT AND INTACT. PT IS ON SEIZURE PRECAUTION, SIDE RAILS ARE PADDED TO PREVENT INJURY. PT HAS BEEN ON NPO AFTER MN. SAFETY MEASURES ARE IN PLACED: BED IN LOWEST AND LOCKED POSITION; SIDE RAILS UP X 3; CALL LIGHT AND TABLE ARE WITHIN REACH; BED ALARM IS SET. WILL MONITOR THE PT'S CONDITION AND PROVIDE THE CARE PT NEEDS.
[2022-07-26] MEDS: PANTOPRAZOLE 40 MG TABLET.DR PO SCH (07:30)
--- NOTE | 2022-07-26 08:06 | NUR ---
MS RN OPENING NOTE Patient in bed, awake. A/O x 3, able to make needs known. On room air, no SOB or s/s of distress noted. IV access on LFA #22 infusing D5 1/2 NS @ 75 ml/hr. Gotti catheter in place draining to a yellow colored urine. Patient kept NPO for surgery today. Safety precautions in place: bed in low, locked position; siderails up x 2; call light within reach. Will continue to monitor.
[2022-07-26 08:33] VITALS: BP 109/69
[2022-07-26] MEDS: GABAPENTIN 300 MG CAPSULE PO SCH ×3 (09:00→17:00)
[2022-07-26] MEDS: LEVETIRACETAM (250 MG) 250 MG TABLET PO SCH ×2 (09:00→21:57)
[2022-07-26] MEDS: DULOXETINE HCL 30 MG CAPSULE.DR PO SCH (09:00)
[2022-07-26] MEDS ORDERED: BISACODYL (5 MG) 5 MG TABLET.DR PO SCH (09:00)
[2022-07-26] MEDS: DOCUSATE SODIUM 100 MG CAPSULE PO SCH ×2 (09:00→17:00)
[2022-07-26] MEDS: risperiDONE 0.25 MG TABLET PO SCH ×3 (09:00→17:26)
[2022-07-26] MEDS: BENZTROPINE MESYLATE (1 MG) 1 MG TABLET PO SCH ×2 (09:00→17:00)
[2022-07-26] MEDS: MORPHINE SULFATE INJ 2 MG/ML DISP.SYRIN IV PRN ×2 (09:29→13:37)
[2022-07-26 10:00] VITALS: BP 109/69
--- NOTE | 2022-07-26 13:30 | NUR ---
RN NOTE Received home medication Buprenorphine/Naloxone 8mg/2 mg film #6 from family and brought to pharmacy.
[2022-07-26 13:42] LABS: CHOLESTEROL 150 mg/dL (<200); HDL CHOLESTEROL 79 mg/dL (40-60); LDL 61 mg/dL (0-99); TRIGLYCERIDES 98 mg/dL (30-150)
[2022-07-26] MEDS ORDERED: KEY,NONCONTROL,TO KEEP IN PYXI 1 EA MC ONE ×2 (15:07→16:42)
--- NOTE | 2022-07-26 15:11 | NUR ---
RN NOTE Received medication Buprenorphine/Naloxone 8mg/2mg film from Pharmacy and placed in lock box in the med room.
[2022-07-26] MEDS ORDERED: ANESTHESIA TRAY IN PYXIS 1 EA TRAY MC ONE (15:48)
[2022-07-26 16:11] VITALS: BP 116/84
[2022-07-26] MEDS: BUPRENORPHINE SL SCH (16:45)
[2022-07-26] MEDS: NALOXONE SL SCH (16:45)
[2022-07-26] MEDS: IV D5/0.45 NACL 1,000 ML IV PRN (16:45)
[2022-07-26] MEDS: NORTRIPTYLINE HCL 25 MG CAPSULE PO SCH (17:26)
[2022-07-26] MEDS ORDERED: FENTANYL PF 100MCG/2ML AMPUL ONE ×2 (17:29)
[2022-07-26] MEDS ORDERED: BUPIVACAINE MPF 0.75% 30 ML VIAL ONE (17:34)
--- NOTE | 2022-07-26 18:30 | NUR ---
RN NOTE Patient brought down to OR for Left hip ORIF.
[2022-07-26] MEDS ORDERED: MIDAZOLAM HCL 2 MG/2ML VIAL ONE (19:01)
[2022-07-26] MEDS ORDERED: BUPIVACAINE 0.25% 75 MG/30 ML VIAL ONE (19:01)
[2022-07-26] MEDS ORDERED: LABETALOL HCL IV 100MG VIAL ONE (19:45)
[2022-07-26] MEDS ORDERED: HYDROMORPHONE 1 MG/1 ML DISP.SYRIN ONE ×2 (20:43→21:07)
[2022-07-26 21:00] LABS: HEMOGLOBIN 12.8 g/dL (11.5-14.8)
[2022-07-26] MEDS ORDERED: ACETAMINOPHEN 325 MG TABLET PO PRN (21:00)
[2022-07-26] MEDS ORDERED: BISACODYL SUPP (10 MG) 10 MG/SUPP.RECT SUPP.RECT RC PRN (21:00)
[2022-07-26] MEDS ORDERED: SENNOSIDES 8.6 MG TABLET PO PRN ×2 (21:00)
[2022-07-26] MEDS ORDERED: DOCUSATE SODIUM 250 MG CAPSULE PO PRN (21:00)
[2022-07-26] MEDS ORDERED: DOCUSATE SODIUM 100 MG CAPSULE PO PRN (21:00)
--- NOTE | 2022-07-26 21:35 | NUR ---
RN OPENING NOTE RECEIVED PATIENT FROM OR. PATIENT AWAKE IN BED. A/OX3. NO S/S OF DISTRESS, BREATHING WITHOUT DIFFICULTY ON ROOM AIR. PATIENT COMPLAINED OF PAIN 9/10 (MORPHINE ADMINISTERED). ALL ADDITIONAL, NON-PHARM COMFORT MEASURES ADMINISTERED. PATIENT IS STABLE. VS ARE FOLLOWS: T: 98.4 BP: 140/103 HR: 116 RESP: 70 O2: 98% LEFT LEG POST-SX INCISION DRESSING INTACT, NO BLEEDING NOTED. RFA #20 INTACT AND PATENT W/ D5-1/2NS 75ML/HR. SAFETY MEASURES IN PLACE: BED LOCKED AND AT LOWEST POSITION, LOW-FOWLERS, RAILS UP X2, CALL ARGUELLES WITHIN REACH. WILL CONTINUE TO MONITOR PATIENT.
[2022-07-26] MEDS: MORPHINE SULFATE INJ 4 MG/ML DISP.SYRIN IV PRN (21:56)
[2022-07-26] MEDS: MIRTAZAPINE 15 MG TABLET PO SCH (21:57)
[2022-07-26] MEDS: ATORVASTATIN 10 MG TABLET PO SCH (21:57)
[2022-07-26] MEDS: POLYETHYLENE GLYCOL 3350 17 GM POWD.PACK PO SCH ×2 (21:57→22:00)
[2022-07-27] VITALS: BP 104/79
[2022-07-27 01:25] LABS: HEMOGLOBIN 10.9 g/dL (11.5-14.8)
[2022-07-27] MEDS: MORPHINE SULFATE INJ 4 MG/ML DISP.SYRIN IV PRN ×4 (02:07→23:10)
[2022-07-27] MEDS: ANCEF 1 GM/50 ML D5W IV SCH ×4 (02:07→10:57)
--- NOTE | 2022-07-27 06:46 | NUR ---
RN CLOSING NOTE PATIENT AWAKE IN BED. A/OX3-4. NO S/S OF DISTRESS, BREATHING WITHOUT DIFFICULTY ON ROOM AIR. LFA #22 INTACT AND PATENT W/ D5-1/2NS 75ML/HR. SAFETY MEASURES IN PLACE: BED LOCKED AND AT LOWEST POSITION, MID-FOWLERS, RAILS UP X2, CALL ARGUELLES WITHIN REACH. WILL ENDORSE TO NEXT SHIFT FOR TARYN.
[2022-07-27 08:00] VITALS: BP 124/87
--- NOTE | 2022-07-27 08:21 | NUR ---
MS RN OPENING NOTE Patient in bed, awake. A/O x 2-3, able to make needs known. Patient mumbling random stuff. On room air, no SOB or s/s of distress noted. IV access on LFA #22 SL and RAC #22 infusing D5 1/2 NS @ 75 ml/hr. Gotti catheter in place draining to a yellow colored urine. Safety precautions in place: bed in low, locked position; siderails up x 2; call light within reach. Will continue to monitor.
[2022-07-27] MEDS ORDERED: ENOXAPARIN SODIUM 40 MG/0.4 ML DISP.SYRIN SQ SCH (09:00)
[2022-07-27] MEDS ORDERED: KEY,NONCONTROL,TO KEEP IN PYXI 1 EA MC ONE ×2 (09:11→17:48)
[2022-07-27] MEDS: risperiDONE 0.25 MG TABLET PO SCH ×3 (09:14→17:54)
[2022-07-27] MEDS: DULOXETINE HCL 30 MG CAPSULE.DR PO SCH (09:14)
[2022-07-27] MEDS: PANTOPRAZOLE 40 MG TABLET.DR PO SCH (09:14)
[2022-07-27] MEDS: BENZTROPINE MESYLATE (1 MG) 1 MG TABLET PO SCH ×2 (09:14→17:54)
[2022-07-27] MEDS: NALOXONE SL SCH ×2 (09:15→17:55)
[2022-07-27] MEDS: LEVETIRACETAM (250 MG) 250 MG TABLET PO SCH (09:15)
[2022-07-27] MEDS: BUPRENORPHINE SL SCH ×2 (09:15→17:55)
[2022-07-27] MEDS: GABAPENTIN 300 MG CAPSULE PO SCH ×3 (09:15→17:53)
[2022-07-27] MEDS: ENOXAPARIN SODIUM 40 MG/0.4 ML DISP.SYRIN SQ SCH (10:15)
--- NOTE | 2022-07-27 10:26 | NUR ---
RN NOTE Per Shad Kelly, JULIEN hold blood transfusion for now.
[2022-07-27 13:08] LABS: BASOPHILS # (AUTO) 0.1 K/uL (0.0-0.2); BASOPHILS % (AUTO) 0.4 % (0.0-2.0); HEMATOCRIT 31 % (33-45); HEMOGLOBIN 10.1 g/dL (11.5-14.8); LYMPHOCYTES # (AUTO) 1.5 K/uL (0.8-4.8); LYMPHOCYTES % (AUTO) 9.5 % (20.0-44.0); MEAN CORPUSCULAR HGB CONC 33 g/dl (31.0-36.0); MEAN CORPUSCULAR VOLUME 87 fL (82-100); MONOCYTES # (AUTO) 1.1 K/uL (0.1-1.30); MONOCYTES % (AUTO) 6.7 % (2.0-12.0); NEUTROPHILS # (AUTO) 13.2 K/uL (1.8-8.9); NEUTROPHILS % (AUTO) 83.4 % (43.0-81.0); PLATELET COUNT (AUTO) 337 K/uL (150-450); RED BLOOD CELL COUNT(AUTO) 3.55 MIL/uL (4.0-5.2); WHITE BLOOD COUNT (AUTO) 15.9 K/uL (4.3-11.0)
[2022-07-27 13:15] LABS: ALBUMIN 3.2 g/dL (3.4-5.0); BILIRUBIN,TOTAL 0.6 mg/dL (0.2-1.0); CALCIUM, SERUM 8.4 mg/dL (8.5-10.1); CREATININE 0.6 mg/dL (0.6-1.3); PHOSPHORUS 3.8 mg/dL (2.5-4.9); POTASSIUM 3.2 mmol/L (3.5-5.1); TOTAL PROTEIN, SERUM 6.8 g/dL (6.4-8.2)
[2022-07-27] MEDS: IV D5/0.45 NACL 1,000 ML IV PRN (15:00)
[2022-07-27 16:00] VITALS: BP 113/75
[2022-07-27] MEDS ORDERED: POTASSIUM CHLORIDE 20 MEQ TAB.PRT.SR PO ONE (16:30)
[2022-07-27] MEDS: NORTRIPTYLINE HCL 25 MG CAPSULE PO SCH (17:54)
--- NOTE | 2022-07-27 18:09 | NUR ---
RN NOTE IV access on RAC infiltrated. IV removed, new IV re inserted on Left wrist #20, flushing well.
--- NOTE | 2022-07-27 19:44 | NUR ---
MS RN CLOSING NOTE Patient in bed, resting. A/O x 2-3, able to make needs known. Patient mumbling random stuff. On room air, no SOB or s/s of distress noted. IV access on LFA #22 SL and RAC #22 infusing D5 1/2 NS @ 75 ml/hr and Left wrist #20 SL. Gotti catheter in place draining to a yellow colored urine with an output of 300 cc. Due meds given. All needs attended to. Safety precautions in place: bed in low, locked position; siderails up x 2; call light within reach. Will endorse to nightclub manager nurse for TARYN.
[2022-07-27 20:00] VITALS: BP 107/77
--- NOTE | 2022-07-27 20:20 | NUR ---
RN OPENING NOTE PATIENT AWAKE IN BED. A/OX3 W/ BOUTS CONFUSION. NO S/S OF DISTRESS, BREATHING WITHOUT DIFFICULTY ON ROOM AIR. LFA #22 INTACT AND PATENT W/ D5-1/2NS @75ML/HR. SAFETY MEASURES IN PLACE: BED LOCKED AND AT LOWEST POSITION, MID-FOWLERS, RAILS UP X2, CALL ARGUELLES WITHIN REACH. WILL CONTINUE TO MONITOR PATIENT.
[2022-07-27] MEDS: ATORVASTATIN 10 MG TABLET PO SCH (21:35)
[2022-07-27] MEDS: POLYETHYLENE GLYCOL 3350 17 GM POWD.PACK PO SCH (21:35)
[2022-07-27] MEDS: MIRTAZAPINE 15 MG TABLET PO SCH (21:35)
[2022-07-27] MEDS: LEVETIRACETAM (500MG) 1,000 MG in IV NS 0.9% 100 ML IV SCH (21:42)
[2022-07-28] MEDS: MORPHINE SULFATE INJ 4 MG/ML DISP.SYRIN IV PRN ×4 (04:16→22:21)
[2022-07-28] MEDS: IV D5/0.45 NACL 1,000 ML IV PRN ×2 (05:01→22:14)
[2022-07-28 06:49] LABS: BASOPHILS # (AUTO) 0.1 K/uL (0.0-0.2); HEMATOCRIT 27 % (33-45); PLATELET COUNT (AUTO) 231 K/uL (150-450)
--- NOTE | 2022-07-28 06:52 | NUR ---
RN CLOSING NOTE PATIENT ASLEEP IN BED. A/OX3. NO S/S OF DISTRESS, BREATHING WITHOUT DIFFICULTY ON ROOM AIR. L-WRIST #20 SL INTACT AND PATENT; LFA #22 INTACT AND PATENT W/ 75ML/HR. PATIENT HAD REEVES REMOVED PER POST-OP ORDERS. PATIENT HAS NOT YET URINATED. PATIENT IS ON PUREED DIET. NO BM YET. NO URINE SINCE REEVES REMOVAL. BLADDER SCANNER PERFORMED REVEALING URINE RETENTION OF >550cc. ON-CALL, MITCH CHOI. ORDERS GIVEN FOR STRAIGHT CATH ONCE; W/ BLADDER SCANNER Q6HR, STRAIGHT CATH IF URINE VOL >250cc. WILL ENDORSE TO NEXT SHIFT. SAFETY MEASURES IN PLACE: BED LOCKED AND AT LOWEST POSITION, MID-FOWLERS, RAILS UP X2, CALL ARGUELLES WITHIN REACH. WILL ENDORSE TO NEXT SHIFT FOR TARYN.
[2022-07-28 07:03] LABS: BASOPHILS % (AUTO) 0.6 % (0.0-2.0); CALCIUM, SERUM 8.5 mg/dL (8.5-10.1); CREATININE 0.6 mg/dL (0.6-1.3); EOSINOPHILS % (AUTO) 0.5 % (0.0-6.0); HEMOGLOBIN 8.9 g/dL (11.5-14.8); LYMPHOCYTES # (AUTO) 1.7 K/uL (0.8-4.8); LYMPHOCYTES % (AUTO) 13.4 % (20.0-44.0); MAGNESIUM 2.1 mg/dL (1.8-2.4); MEAN CORPUSCULAR HGB CONC 33 g/dl (31.0-36.0); MEAN CORPUSCULAR VOLUME 88 fL (82-100); MONOCYTES # (AUTO) 1.4 K/uL (0.1-1.30); MONOCYTES % (AUTO) 10.9 % (2.0-12.0); NEUTROPHILS # (AUTO) 9.3 K/uL (1.8-8.9); NEUTROPHILS % (AUTO) 74.6 % (43.0-81.0); PHOSPHORUS 2.8 mg/dL (2.5-4.9); POTASSIUM 3.7 mmol/L (3.5-5.1); RED BLOOD CELL COUNT(AUTO) 3.11 MIL/uL (4.0-5.2); WHITE BLOOD COUNT (AUTO) 12.5 K/uL (4.3-11.0)
--- NOTE | 2022-07-28 07:35 | NUR ---
RN OPENING NOTE PATIENT AWAKE IN BED. A/OX3 VERBALLY RESPONSIVE . NO S/S OF DISTRESS, BREATHING WITHOUT DIFFICULTY ON ROOM AIR. NO C/O OF PAIN AND DISCOMFORT , LFA #22 INTACT AND PATENT W/ D5-1/2NS @75ML/HR. SAFETY MEASURES IN PLACE: BED LOCKED AND AT LOWEST POSITION, MID-FOWLERS, RAILS UP X2, CALL ARGUELLES WITHIN REACH. WILL CONTINUE TO MONITOR PATIENT.
[2022-07-28 08:00] VITALS: BP 105/58
[2022-07-28] MEDS: ENSURE ENLIVE 237 ML LIQUID (VANILLA) PO SCH ×3 (08:50→17:02)
[2022-07-28] MEDS: PANTOPRAZOLE 40 MG TABLET.DR PO SCH (08:50)
[2022-07-28] MEDS ORDERED: LEVETIRACETAM (250 MG) 250 MG TABLET PO SCH (09:00)
[2022-07-28] MEDS: DULOXETINE HCL 30 MG CAPSULE.DR PO SCH (09:42)
[2022-07-28] MEDS: risperiDONE 0.25 MG TABLET PO SCH ×3 (09:42→17:02)
[2022-07-28] MEDS: GABAPENTIN 300 MG CAPSULE PO SCH ×3 (09:42→17:04)
[2022-07-28] MEDS: BENZTROPINE MESYLATE (1 MG) 1 MG TABLET PO SCH ×2 (09:43→17:02)
[2022-07-28] MEDS ORDERED: IOHEXOL-300 100 ML VIAL IV ONE (09:44)
[2022-07-28] MEDS ORDERED: IV NS 0.9% 250 ML IV ONE (09:44)
[2022-07-28] MEDS: ENOXAPARIN SODIUM 40 MG/0.4 ML DISP.SYRIN SQ SCH (09:46)
[2022-07-28] MEDS: LEVETIRACETAM (500MG) 1,000 MG in IV NS 0.9% 100 ML IV SCH ×2 (10:02→21:00)
[2022-07-28] MEDS ORDERED: KEY,NONCONTROL,TO KEEP IN PYXI 1 EA MC ONE ×3 (10:20→16:59)
[2022-07-28] MEDS: BUPRENORPHINE SL SCH ×2 (10:30→17:05)
[2022-07-28] MEDS: NALOXONE SL SCH ×2 (10:30→17:05)
[2022-07-28 16:00] VITALS: BP 105/67
[2022-07-28] MEDS: NORTRIPTYLINE HCL 25 MG CAPSULE PO SCH (17:05)
--- NOTE | 2022-07-28 19:05 | NUR ---
MS RN OPENING NOTE PATIENT IS RESTING IN BED WATCHING TV. PT IS ALERT AND ORIENTED, AO X 2. SHE IS VERY FORGETFUL. PT IS ON RA, TOLERATED WELL. NO S/S OF DISTRESS OR SOB. PT DENIES OF HAVING ANY PAIN AT THIS MOMENT. IV ACCESS IS AT HER L WRIST, #20G, RUNNING D5 1/2NS @ 75 ML / HR. IV SITE IS PATENT AND INTACT. PT HAS REEVES CATHETER, DRAINING CLEAR, LIGHT YELLOW COLOR URINE FREELY. TEACH THE PT TO USE THE CALL LIGHT WHEN SHE NEEDS HELP. PT VERBALIZED UNDERSTANDING. SAFETY MEASURES ARE IN PLACED: BED IN LOWEST AND LOCKED POSITION; SIDE RAILS UP X 2; CALL LIGHT AND TABLE ARE WITHIN EASY REACH. WILL MONITOR THE PT AND PROVIDE THE CARE PT NEEDS.
--- NOTE | 2022-07-28 19:10 | NUR ---
RN CLOSING NOTE PATIENT AWAKE IN BED. A/OX3 VERBALLY RESPONSIVE . NO S/S OF DISTRESS, BREATHING WITHOUT DIFFICULTY ON ROOM AIR. C/O OF PAIN AND DISCOMFORT AND DUE MEDS GIVEN ORDERED , LEFT HAND #20 G INTACT AND PATENT W/ D5-1/2NS @75ML/HR. ALL DUE MEDS GIVEN ORDERED , BLADDER SCAN DONE AND WITH RETENTION OF 60O ML AND F/C INSERTED AND WITH OUTPUT OF 1100 CC , SAFETY MEASURES IN PLACE: BED LOCKED AND AT LOWEST POSITION, MID-FOWLERS, RAILS UP X2, CALL ARGUELLES WITHIN REACH. WILL ENDORSED TO NEXT SHIFT .
[2022-07-28 20:00] VITALS: BP 106/44
[2022-07-28 20:30] VITALS: BP 104/66
[2022-07-28] MEDS: MIRTAZAPINE 15 MG TABLET PO SCH (21:06)
[2022-07-28] MEDS: POLYETHYLENE GLYCOL 3350 17 GM POWD.PACK PO SCH (21:06)
[2022-07-28] MEDS: ATORVASTATIN 10 MG TABLET PO SCH (21:06)
[2022-07-28] MEDS: ZOLPIDEM TARTRATE 5 MG TABLET PO PRN (23:41)
[2022-07-29] MEDS: MORPHINE SULFATE INJ 4 MG/ML DISP.SYRIN IV PRN (04:13)
--- NOTE | 2022-07-29 06:32 | NUR ---
MS RN CLOSING NOTE PATIENT IS RESTING IN BED. PT IS ALERT AND ORIENTED, AO X 2. SHE IS VERY FORGETFUL. PT IS ON RA, TOLERATED WELL. NO S/S OF DISTRESS OR SOB. PT DENIES OF HAVING ANY PAIN AT THIS MOMENT. IV ACCESS IS AT HER L WRIST, #20G, RUNNING D5 1/2NS @ 75 ML / HR. IV SITE IS PATENT AND INTACT. PT HAS REEVES CATHETER, DRAINING CLEAR, LIGHT YELLOW COLOR URINE FREELY. THROUGH THE SHIFT, PT IS ABLE TO MAKE HER NEEDS KNOWN. SAFETY MEASURES ARE IN PLACED: BED IN LOWEST AND LOCKED POSITION; SIDE RAILS UP X 2; CALL LIGHT AND TABLE ARE WITHIN EASY REACH. WILL ENDORSE NEXT SHIFT NURSE FOR CONTINUING PT CARE.
--- NOTE | 2022-07-29 07:30 | NUR ---
MS RN PATIENT RECEIVED IN BED. PT IS ALERT AND ORIENTED, AOX 2, PATIENT IS CONFUSED. PT IS ON ROOM AIR, TOLERATED WELL. NO S/S OF DISTRESS OR SOB AND DENIES HAVING ANY PAIN AT THIS MOMENT. IV ACCESS IS AT HER L WRIST, #20G, RUNNING D5 1/2NS @ 75 ML / HR. IV SITE IS PATENT AND INTACT. PT HAS REEVES CATHETER, DRAINING CLEAR, LIGHT YELLOW COLOR. SAFETY MEASURES ARE IN PLACED: BED IN LOWEST AND LOCKED POSITION; SIDE RAILS UP X 2; CALL LIGHT AND TABLE ARE WITHIN EASY REACH. WILL CONTINUE TO MONITOR.
[2022-07-29] MEDS: PANTOPRAZOLE 40 MG TABLET.DR PO SCH (08:13)
[2022-07-29 08:21] VITALS: BP 127/68
[2022-07-29] MEDS: ENSURE ENLIVE 237 ML LIQUID (VANILLA) PO SCH ×3 (08:47→16:59)
[2022-07-29] MEDS: LEVETIRACETAM (500MG) 1,000 MG in IV NS 0.9% 100 ML IV SCH (08:47)
[2022-07-29] MEDS: DULOXETINE HCL 30 MG CAPSULE.DR PO SCH (08:48)
[2022-07-29] MEDS: BENZTROPINE MESYLATE (1 MG) 1 MG TABLET PO SCH ×2 (08:48→16:58)
[2022-07-29] MEDS: risperiDONE 0.25 MG TABLET PO SCH ×3 (08:48→16:59)
[2022-07-29] MEDS: ENOXAPARIN SODIUM 40 MG/0.4 ML DISP.SYRIN SQ SCH (08:52)
[2022-07-29] MEDS: GABAPENTIN 300 MG CAPSULE PO SCH ×3 (08:53→16:59)
--- NOTE | 2022-07-29 09:00 | NUR ---
MS SANDERS BREAKFAST IS SERVED. TOLERATED WELL. DUE MEDS GIVEN.
--- NOTE | 2022-07-29 09:30 | NUR ---
ms rn was seen by ruth ann simmons, awaiting for orders.
[2022-07-29] MEDS ORDERED: KEY,NONCONTROL,TO KEEP IN PYXI 1 EA MC ONE ×4 (11:11→17:29)
[2022-07-29] MEDS: NALOXONE SL SCH ×2 (11:16→17:00)
[2022-07-29] MEDS: BUPRENORPHINE SL SCH ×2 (11:16→17:00)
[2022-07-29] MEDS: CARISOPRODOL 350 MG TABLET PO PRN ×2 (14:40→20:43)
[2022-07-29 16:36] VITALS: BP 101/66
[2022-07-29] MEDS: IV D5/0.45 NACL 1,000 ML IV PRN (17:44)
[2022-07-29] MEDS: NORTRIPTYLINE HCL 25 MG CAPSULE PO SCH (18:17)
--- NOTE | 2022-07-29 18:43 | NUR ---
ms rn patient on bed, awake, denies pain at this time, all needs attended,no distress noted, call light within reach
--- NOTE | 2022-07-29 19:30 | NUR ---
MS RN OPENING NOTE RECEIVED PATIENT IN BED; AWAKE, ALERT AND ORIENTED X 2-3; FORGETFUL AT TIMES. ON ROOM AIR; TOLERATING WELL. NOT IN ANY FORM OF RESPIRATORY OR CARDIAC DISTRESS. NO C/O PAIN OR DISCOMFORT AT THIS MOMENT. WITH IV ACCESS ON LEFT HAND 20g; PATENT AND INTACT RUNNING WITH D5 1/2NS 1L @ 75 ML/HR; FLUSHES WELL. WITH REEVES CATHETER IN PLACE DRAINING BY GRAVITY TO CLEAR YELLOW URINE OUTPUT. ABLE TO MAKE NEEDS KNOWN. SAFETY MEASURES IMPLEMENTED: CALL LIGHT AND TABLE WITHIN REACH, SIDE RAILS UP X 3, BED IN LOWEST LOCKED POSITION. WILL CONTINUE PLAN OF CARE.
[2022-07-29 20:00] VITALS: BP 109/71
[2022-07-29] MEDS: LEVETIRACETAM (250 MG) 250 MG TABLET PO SCH (21:18)
[2022-07-29] MEDS: MIRTAZAPINE 15 MG TABLET PO SCH (21:52)
[2022-07-29] MEDS: ATORVASTATIN 10 MG TABLET PO SCH (21:52)
[2022-07-29] MEDS: POLYETHYLENE GLYCOL 3350 17 GM POWD.PACK PO SCH (21:52)
[2022-07-30] MEDS: CARISOPRODOL 350 MG TABLET PO PRN ×2 (03:04→16:21)
--- NOTE | 2022-07-30 06:50 | NUR ---
MS RN CLOSING NOTE PATIENT IN BED; AWAKE. A/O X 2-3. STABLE ON ROOM AIR. IN NO ACUTE DISTRESS. DENIES ANY PAIN OR DISCOMFORT AT THIS MOMENT. WITH IV ACCESS ON RIGHT UPPER ARM 22g; PATENT AND INTACT RUNNING WITH D5 1/2NS 1L @ 75 ML/HR; FLUSHES WELL. WITH REEVES CATHETER IN PLACE DRAINING BY GRAVITY TO CLEAR YELLOW URINE OUTPUT. ALL NEEDS ATTENDED. SAFETY MEASURES IN PLACE: CALL LIGHT AND TABLE WITHIN REACH, SIDE RAILS UP X 3, BED IN LOWEST LOCKED POSITION. ENDORSED TO MORNING SHIFT FOR TARYN.
--- NOTE | 2022-07-30 06:55 | NUR ---
MOLDER OPERATOR CLOSING NOTE PATIENT IN BED; AWAKE, A/O X 4. STABLE ON ROOM AIR. IN NO ACUTE DISTRESS. DENIES ANY PAIN OR DISCOMFORT. ON TELE MONITORING WITH READING OF SR WITH BBB HR-71 BPM. NO IV ACCESS FOR NOW. PATIENT REFUSED IV REINSERTION AT THIS MOMENT. SAFETY MEASURES IN PLACE: CALL LIGHT AND TABLE WITHIN REACH, SIDE RAILS UP X 2, BED IN LOWEST LOCKED POSITION. ENDORSED TO MORNING SHIFT FOR TARYN. Addendum: 07/30/22 at 0705 by LAUREN OLIVER RN WRONG ENTRY
[2022-07-30 07:00] VITALS: BP 109/67
--- NOTE | 2022-07-30 07:15 | NUR ---
MS RN RECEIVED ON BED, AWAKE,AL ALERT, W/ PERIODS OF CONFUSION,NOT IN ANY FORM OF DISTRESS, S/P LEFT HIP SURGERY W/ DRESSING DRY AND INTACT, REVEES TO GRAVITY W/ YELLOWISH URINE OUTPUT, WILL MONITOR PATIENT.
[2022-07-30] MEDS: BENZTROPINE MESYLATE (1 MG) 1 MG TABLET PO SCH (08:32)
[2022-07-30] MEDS: GABAPENTIN 300 MG CAPSULE PO SCH ×2 (08:33→14:18)
[2022-07-30] MEDS: DULOXETINE HCL 30 MG CAPSULE.DR PO SCH (08:33)
[2022-07-30] MEDS: PANTOPRAZOLE 40 MG TABLET.DR PO SCH (08:33)
[2022-07-30] MEDS: risperiDONE 0.25 MG TABLET PO SCH ×2 (08:33→14:18)
[2022-07-30] MEDS: LEVETIRACETAM (250 MG) 250 MG TABLET PO SCH (08:33)
[2022-07-30] MEDS: ENOXAPARIN SODIUM 40 MG/0.4 ML DISP.SYRIN SQ SCH (08:34)
[2022-07-30] MEDS: ENSURE ENLIVE 237 ML LIQUID (VANILLA) PO SCH ×2 (08:39→12:00)
[2022-07-30] MEDS: NALOXONE SL SCH (09:00)
[2022-07-30] MEDS: BUPRENORPHINE SL SCH (09:00)
--- NOTE | 2022-07-30 09:20 | NUR ---
MS RN GET UP W/ PHYSICAL THERAPY, WALKED, W/ FWW 20 FEET, TOLERATED WELL. DUE MEDS GIVEN.
[2022-07-30] MEDS ORDERED: LACT-246 PO (10:03)
[2022-07-30] MEDS ORDERED: DOCU100C36 PO (10:03)
[2022-07-30] MEDS ORDERED: MAGN400O6 PO (10:03)
[2022-07-30] MEDS ORDERED: POLY17PO29 PO (10:03)
[2022-07-30] MEDS ORDERED: ENOX40DI SQ (10:03)
[2022-07-30] MEDS ORDERED: ACET325T53 PO (10:03)
[2022-07-30] MEDS ORDERED: BISA10SU61 RC (10:03)
[2022-07-30] MEDS ORDERED: LEVE250T2 PO (10:03)
[2022-07-30] MEDS ORDERED: KEY,NONCONTROL,TO KEEP IN PYXI 1 EA MC ONE ×2 (10:35→10:37)
[2022-07-30 16:00] VITALS: BP 119/79
--- NOTE | 2022-07-30 16:30 | NUR ---
ms rn patient went to snf, discharge instructions given to kaylee Montero.
== END 2022-07-30 16:45 | DRG 480 ==
LOC: ER 15:52 → MED 21:37
PROVIDERS: ADMIT Nurse Practitioner Family; ATTEND Nurse Practitioner Acute Care
PROC: 0QS706Z Reposition Left Upper Femur with Intramedullary Internal Fixation Device, Open Approach (ICD-10-PCS; principal; 2022-07-26)
DX: S72.145A Nondisplaced intertrochanteric fracture of left femur, initial encounter for closed fracture (principal); E43 Unspecified severe protein-calorie malnutrition; G92.8 Other toxic encephalopathy; F05 Delirium due to known physiological condition; Z68.1 Body mass index [BMI] 19.9 or less, adult; R64 Cachexia; G40.909 Epilepsy, unspecified, not intractable, without status epilepticus; K59.00 Constipation, unspecified; X58.XXXA Exposure to other specified factors, initial encounter; Y92.099 Unspecified place in other non-institutional residence as the place of occurrence of the external cause; I69.392 Facial weakness following cerebral infarction; M19.90 Unspecified osteoarthritis, unspecified site; Z79.899 Other long term (current) drug therapy; Z88.8 Allergy status to other drugs, medicaments and biological substances; Z98.890 Other specified postprocedural states; Z85.9 Personal history of malignant neoplasm, unspecified; Z79.82 Long term (current) use of aspirin; Z86.69 Personal history of other diseases of the nervous system and sense organs; D72.829 Elevated white blood cell count, unspecified; G51.0 Bell's palsy; J44.9 Chronic obstructive pulmonary disease, unspecified; E78.5 Hyperlipidemia, unspecified; F32.A Depression, unspecified; F17.200 Nicotine dependence, unspecified, uncomplicated; D64.9 Anemia, unspecified; J98.4 Other disorders of lung; F41.9 Anxiety disorder, unspecified; M81.0 Age-related osteoporosis without current pathological fracture; Z62.810 Personal history of physical and sexual abuse in childhood; Z86.59 Personal history of other mental and behavioral disorders; Z85.819 Personal history of malignant neoplasm of unspecified site of lip, oral cavity, and pharynx
CPT/HCPCS: 36415; 70450-TC; 71045-TC; 71270-TC; 72125-TC; 72131-TC; 73020; 73502; 73700-TC; 80048-TC; 80053-TC; 80061-TC; 80076-TC; 83735-TC; 84100-TC; 85025-TC; 85027-TC; 85610-TC; 86850-TC; 87081-TC; 93307-TC; 97110-TC; 97116-TC; 97530-TC; A4223; A6209; C1713; C9803; G0378; J0690; J1100; J1170; J1650; J1885; J1953; J2250; J2270; J2405; J2704; J3010; J3490; J7030; J7050; J7060; Q9967